=== PATIENT | male | born 1965 | race Caucasian/White ===

== ENCOUNTER → 2018-06-16 09:39 | Outpatient (CLI) | payer MEDICARE, SELFPAY ==
[2018-06-17 18:08] LABS: PSA, Screening 0.1 ng/ml (0-3.5)
== END ==
PROVIDERS: PCP Emergency Medicine; Visit Provider Emergency Medicine
DX: N40.0 Benign prostatic hyperplasia without lower urinary tract symptoms (principal)
CPT/HCPCS: 36415; 84153

== ENCOUNTER 2018-10-14 09:44 | Outpatient (CLI) | payer MEDICARE, SELFPAY ==
[2018-10-14 11:37] LABS: Hemoglobin A1C 8.6 % (4.5-6.2)
[2018-10-14 12:12] LABS: Anion Gap 7.9 mmol/L (3-11); BUN 30 mg/dL (7-18); CO2 28.1 mmol/L (21.0-32.0); CREATININE 1.65 mg/dL (0.70-1.30); Calcium 9.4 mg/dL (8.5-10.1); Chloride 99 mmol/L (98-107); Cholesterol 178 mg/dL (50-200); Estimated GFR 43.69 (mL/min/1.73m2); Glucose 226 mg/dL (70-100); HDL Cholesterol 31 mg/dL (40-60); LDL CHOLESTEROL 128 mg/dL (<100); Potassium 5.3 mmol/L (3.5-5.1); Sodium 135 mmol/L (136-145); Triglyceride 136 mg/dL (30-150)
== END 2018-10-14 10:04 ==
PROVIDERS: PCP Emergency Medicine; Visit Provider Emergency Medicine
DX: I10 Essential (primary) hypertension (principal); E11.9 Type 2 diabetes mellitus without complications; I25.10 Atherosclerotic heart disease of native coronary artery without angina pectoris
CPT/HCPCS: 36415; 80048; 80061; 83721; 83036

== ENCOUNTER 2018-12-16 10:19 | Outpatient (CLI) | payer MEDICARE, SELFPAY ==
[2018-12-16 13:21] LABS: Anion Gap 6.5 mmol/L (3-11); BUN 28 mg/dL (7-18); CO2 28.5 mmol/L (21.0-32.0); CREATININE 1.76 mg/dL (0.70-1.30); Calcium 9.9 mg/dL (8.5-10.1); Chloride 100 mmol/L (98-107); Cholesterol 151 mg/dL (50-200); Glucose 311 mg/dL (70-100); HDL Cholesterol 34 mg/dL (40-60); LDL CHOLESTEROL 99 mg/dL (<100); Sodium 135 mmol/L (136-145); Triglyceride 163 mg/dL (30-150)
[2018-12-16 13:23] LABS: Potassium 6.2 mmol/L (3.5-5.1)
[2018-12-16 13:43] LABS: Hemoglobin A1C 8.2 % (4.5-6.2)
== END 2018-12-16 10:39 ==
PROVIDERS: PCP Emergency Medicine; Visit Provider Emergency Medicine
DX: I10 Essential (primary) hypertension (principal); E11.49 Type 2 diabetes mellitus with other diabetic neurological complication
CPT/HCPCS: 36415; 80048; 80061; 83721; 83036

== ENCOUNTER 2018-12-18 01:06 | Outpatient (CLI) | payer MEDICARE, SELFPAY ==
[2018-12-18 09:47] LABS: Potassium 4.9 mmol/L (3.5-5.1)
== END 2018-12-18 01:26 ==
PROVIDERS: PCP Emergency Medicine; Visit Provider Emergency Medicine
DX: E11.9 Type 2 diabetes mellitus without complications (principal)
CPT/HCPCS: 36415; 84132

== ENCOUNTER 2019-04-20 08:46 | Outpatient (CLI) | payer MEDICARE, SELFPAY ==
[2019-04-20 11:17] LABS: Anion Gap 10.6 mmol/L (3-11); BUN 28 mg/dL (7-18); CO2 26.4 mmol/L (21.0-32.0); CREATININE 1.73 mg/dL (0.70-1.30); Calcium 9.4 mg/dL (8.5-10.1); Chloride 100 mmol/L (98-107); Estimated GFR 41.21 (mL/min/1.73m2); Glucose 226 mg/dL (70-100); Potassium 5.2 mmol/L (3.5-5.1); Sodium 137 mmol/L (136-145)
[2019-04-20 14:28] LABS: Calculated LDL 80; Cholesterol 142 mg/dL (50-200); HDL Cholesterol 30 mg/dL (40-60); Triglyceride 163 mg/dL (30-150)
== END 2019-04-20 09:06 ==
PROVIDERS: PCP Emergency Medicine; Visit Provider Emergency Medicine
DX: I10 Essential (primary) hypertension (principal); E11.9 Type 2 diabetes mellitus without complications
CPT/HCPCS: 36415; 80048; 80061; 83721; 83036

== ENCOUNTER 2019-10-19 09:12 | Outpatient (CLI) | payer MEDICARE, SELFPAY ==
[2019-10-19 13:05] LABS: HCT 49.6 % (40.0-50.0); HGB 16.1 g/dL (13.5-17.5); Mean Corp. HGB Concentration 32.5 g/dL (32.0-36.0); Mean Corpuscular Hemoglobin 27.2 pg (27.0-33.0); Mean Corpuscular Volume 83.8 fL (80-95); Mean Platelet Volume 10.8 fL (8.0-11.0); Platelet Count 250 x1000/uL (130-400); RBC 5.92 m/cumm (4.50-6.00); RBC Distribution Width 13.8 % (11.8-14.1)
[2019-10-19 13:09] LABS: Hemoglobin A1C 7.9 % (3.8-5.6)
[2019-10-19 13:11] LABS: ALT 29 U/L (16-63); AST 23 U/L (15-37); Albumin 3.9 g/dL (3.4-5.0); Alkaline Phosphatase 63 U/L (46-116); Anion Gap 7.6 mmol/L (3-11); BUN 27 mg/dL (7-18); Bilirubin, Direct 0.14 mg/dL (0.00-0.20); Bilirubin, Total 0.6 mg/dL (0.2-1.0); CO2 31.4 mmol/L (21.0-32.0); CREATININE 1.91 mg/dL (0.70-1.30); Calcium 9.5 mg/dL (8.5-10.1); Chloride 102 mmol/L (98-107); Estimated GFR 36.76 (mL/min/1.73m2); Glucose 206 mg/dL (74-106); Potassium 5.2 mmol/L (3.5-5.1); Sodium 141 mmol/L (136-145); Total Protein 7.5 g/dL (6.4-8.2)
[2019-10-19 13:35] LABS: COMMENT (LAB VIEW ONLY) 89.38 mg/dL; Microalb ug/mg Crea 26.7 ug/mg Cr
== END 2019-10-19 09:32 ==
PROVIDERS: PCP Emergency Medicine; Visit Provider Emergency Medicine
DX: E11.9 Type 2 diabetes mellitus without complications (principal); I10 Essential (primary) hypertension; R63.4 Abnormal weight loss
CPT/HCPCS: 36415; 80048; 80076; 85027; 82043; 82570; 83036

== ENCOUNTER 2019-12-28 23:00 | Inpatient (IN) | payer MEDICARE, MEDICAID, SELFPAY ==
[2019-12-28 23:10] VITALS: BP 146/95; PULSE 85; RESP 15; TEMP 36.4; O2SAT 100
--- NOTE | 2019-12-28 23:10 | W.ED.GENAD ---
Discharge Plan Disposition Patient Disposition: [facility] INPATIENT Condition: Poor Discharge Details Chief Complaint: Nausea/Vomit/Diar Clinical Impression: Abdominal pain, Nausea and vomiting, Abdominal mass, Abdominal lymphadenopathy Primary Care Provider: Travis Castro ED Provider: Bean Abernathy [place] Meds and New Rx's Prescriptions: No Action lisinopril 5 mg tablet 5 mg PO DAILY Qty: 90 RF: 4 ASPIRIN 81 MG tablet 1 tab PO DAILY RF: 0 (DME) blood-glucose meter [[employer] Autocode Meter] 1 EACH kit 1 ea Miscellaneous QID Qty: 1 RF: 0 (DME) BD Regular Bevel [place] 21 gauge x 1 1/2 needle 1 ea Miscellaneous DAILY Qty: 90 RF: 12 glipizide [Glucotrol] 10 mg tablet 10 mg PO BID Qty: 180 RF: 4 ezetimibe [Zetia] 10 mg tablet 10 mg PO DAILY Qty: 90 RF: 3 metoprolol tartrate 50 mg tablet 50 mg PO BID Qty: 180 RF: 3 Januvia 100 mg tablet 100 mg PO DAILY Qty: 90 RF: 3 omeprazole 20 mg capsule,delayed release(DR/EC) 20 mg PO DAILY Qty: 60 RF: 6 (DME) Blood Glucose Test Strip 1 ea Miscellaneous QID Qty: 360 RF: 3 (DME) lancets [[employer] Lancets] 28 gauge misc 1 ea Miscellaneous QID Qty: 360 RF: 4 Basaglar KwikPen U-100 Insulin 100 unit/mL (3 mL) insulin pen 80 unit subcut DAILY Qty: 12 RF: 12 Medical Decision Making Patient presenting with acute onset of abdominal pain and vomiting. History of diabetes, triple bypass, GERD. He is not endorsing chest pain or shortness of breath. Does have some tenderness in the epigastric region. EKG with nonspecific ST changes. IV established and laboratory studies obtained. Zofran and morphine ordered in addition to fluids. CT scan ordered. Patient continues to have some dry heaves. He is ordered for Reglan and Protonix IV. Laboratory studies show a normal white count. Hemoglobin is normal. Renal function a little bit worse than baseline with a BUN of 40 and a creatinine of 2.1 tonight. Glucose also high at 319. Electrolytes are okay. Liver function is normal. Lipase is normal. Troponin is negative. CT scan is changed to a noncontrast CT given his renal function. 01:00 - Patient continues to have pain and nausea/dry heaves despite morphine, Zofran, Reglan, Protonix. Continuing on IV fluids. CT scan is being read by radiology as masses and enlarged lymph nodes in the patricia hepatis and retroperitoneal region. No evidence of mass-effect causing gastric outlet obstruction. Some encroachment on the IVC and left renal vein but no evidence of occlusion of these. We will plan on admission overnight for IV fluids, antiemetics, pain control. Radiology recommends CT scan with IV contrast or MRI tomorrow. I have discussed findings with the patient and family. Discussed with hospitalist for admission. Medical Records Medical records reviewed: Yes I reviewed the patient's medical records. Imaging Data Radiologic Study: Imaging: CT Scan Radiologist's impression: Imaging protocol: Computed tomography of the abdomen and pelvis without contrast. Radiation optimization: All CT scans at this facility use at least one of these dose optimization techniques: automated exposure control; mA and/or kV adjustment per patient size (includes targeted exams where dose is matched to clinical indication); or iterative reconstruction. COMPARISON: No relevant prior studies available. FINDINGS: Lungs: Visualized lung bases are unremarkable. Liver: The liver is normal. Gallbladder and bile ducts: The gallbladder is normal. Pancreas: The pancreas is normal. Spleen: The spleen is normal. Splenule. Adrenals: 1.5 cm indeterminate density left adrenal nodule. Normal right adrenal gland. Kidneys and ureters: The kidneys are normal. Stomach and bowel: Unremarkable. No obstruction. No mucosal thickening. Appendix: A normal appendix is identified. Intraperitoneal space: A 2.7 cm patricia hepatis nodule appears inseparable from the proximal duodenum (series 2 image 31 through 23 and coronal series 4 image 43 through 48). Vasculature: Coronary artery calcification. The aorta is normal. NIKIA SOTO Preliminary Radiology Report SUPERVISOR ESTIMATOR AND DRAFTER (QA) DISCREPANCY? If there is a discrepancy between the preliminary and final interpretation, please notify [facility] via [email or web address]. If you do not have access to our QA portal, call our QA team at [phone] CONFIDENTIALITY STATEMENT This report is intended only for the use of the referring physician, and only in accordance with law, If you received this in error, call [phone] Page 2 of 2 Lymph nodes: Numerous enlarged patricia hepatis lymph nodes/masses measuring up to 7.6 x 4.2 cm with associated mass effect and narrowing of the IVC and inferior displacement of the proximal duodenum. Several additional enlarged retroperitoneal lymph nodes coursing along the posterior margin the inferior vena cava Bladder: The bladder is normal. Reproductive: Unremarkable as visualized. Bones/joints: Unremarkable. No acute fracture. Soft tissues: Unremarkable. IMPRESSION: 1. Numerous enlarged patricia hepatis and retroperitoneal lymph nodes/masses with largest patricia hepatis mass measuring up to 7.6 x 4.2 cm. The lesions are nonspecific but concerning for malignancy of unclear etiology. A single patricia hepatis nodule appears inseparable from the proximal duodenum as a potential source of malignancy. Recommend further evaluation with contrastenhanced CT or MRI. 2. There is resultant mass effect and prominent narrowing the inferior vena cava and left renal vein and inferior displacement the proximal duodenum without upstream obstruction. Further characterization of local mass effect would be better characterized by contrast enhanced CT or MRI. 3. 1.5 cm indeterminate density left adrenal nodule. Findings discussed with BEAN ABERNATHY MD. by Allan Pleitez MD. of radiology at 12/29/2019 1:02 AM EST Lab Data Lab results reviewed: Yes I reviewed the patient's lab results. ECG Data Attestation: I personally reviewed and interpreted this ECG (s) as follows: Prior ECG tracings: not available for review Interpretation: Normal sinus rhythm at 89. Normal axis and intervals. Nonspecific ST changes. Nondiagnostic. HPI General Mode of arrival: ambulatory. Date/Time Provider Initiated Documentation: 12/28/19 23:10. Limitations to Documentation: no limitations. Information obtained by: patient, family and RN notes reviewed. HPI Narrative: Patient presents to ED with onset of abdominal pain and vomiting about 8:30 - 9:00 this evening. He had been fine all day. He had chicken for dinner. Does not know whether that is the cause or not. He has had some diarrhea during the week but none tonight. He denies fever. He has no chest pain or shortness of breath. Pain radiates into the back from the abdomen. He has had issues with reflux with pain and vomiting in the past but not like this. Currently on omeprazole. He is also diabetic but does not carry a diagnosis of gastric emptying problems. There is been no previous surgery on his abdomen. Related Data Home Medications Medication Instructions Recorded Confirmed Aspirin 1 tab PO DAILY tab-cap 02/01/13 12/28/19 blood-glucose meter [Prodigy] #1 kit 11/28/17 10/19/19 lisinopril 5 mg tablet 5 mg PO DAILY #90 tab 12/16/18 12/28/19 needle (disp) 21 G 21 gauge x 1 #90 ndl 01/26/19 10/19/19 1/2 glipizide 10 mg tablet 10 mg PO BID #180 tab 06/09/19 12/28/19 ezetimibe 10 mg tablet 10 mg PO DAILY #90 tab 09/28/19 12/28/19 metoprolol tartrate 50 mg tablet 50 mg PO BID #180 tab-cap 09/28/19 12/28/19 sitagliptin 100 mg tablet 100 mg PO DAILY #90 tab 09/28/19 12/28/19 omeprazole 20 mg capsule,delayed 20 mg PO DAILY #60 cap 11/16/19 12/28/19 release blood sugar diagnostic #360 strip 11/29/19 lancets 28 gauge #360 ea 11/29/19 insulin glargine 100 unit/mL (3 80 unit SUBCUT DAILY #12 pen 12/23/19 12/28/19 mL) subcutaneous pen Previous Rx's Medication Instructions Recorded blood-glucose meter [Prodigy] #1 kit 11/28/17 lisinopril 5 mg tablet 5 mg PO DAILY #90 tab 12/16/18 needle (disp) 21 G 21 gauge x 1 #90 ndl 01/26/19 1/2 glipizide 10 mg tablet 10 mg PO BID #180 tab 06/09/19 ezetimibe 10 mg tablet 10 mg PO DAILY #90 tab 09/28/19 metoprolol tartrate 50 mg tablet 50 mg PO BID #180 tab-cap 09/28/19 sitagliptin 100 mg tablet 100 mg PO DAILY #90 tab 09/28/19 omeprazole 20 mg capsule,delayed 20 mg PO DAILY #60 cap 11/16/19 release blood sugar diagnostic #360 strip 11/29/19 lancets 28 gauge #360 ea 11/29/19 insulin glargine 100 unit/mL (3 80 unit SUBCUT DAILY #12 pen 02/27/20 mL) subcutaneous pen Allergies Allergy/AdvReac Type Severity Reaction Status Date / Time famotidine Allergy Severe diarrhea Verified 12/28/19 23:19 metformin AdvReac Severe VOMITING/DI Verified 12/28/19 23:19 ZZINESS atorvastatin AdvReac Intermediate Verified 12/28/19 23:19 pravastatin AdvReac Intermediate myalgias Verified 12/28/19 23:19 simvastatin AdvReac Intermediate JOINT PAIN Verified 12/28/19 23:19 Review of Systems Narrative: 08/09 Review of Systems completed and is negative except as stated above in HPI (Systems reviewed: Const, Eyes, ENT, Resp, CV, GI, , MSK, Skin, Neuro) PFSH Medical History BPH associated with nocturia (Chronic 06/16/18) CKD (chronic kidney disease) (Chronic) COPD (chronic obstructive pulmonary disease) (Chronic) Diabetic retinopathy (Chronic) severe; laser RX--blind OD Essential hypertension (Chronic 08/05/13) Hypercholesterolemia (Chronic) Obesity (Chronic) 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 Maternal Uncle Cancer Social History Smoking/Tobacco Use Status: Former Tobacco Use Quit Date: 10/27/11 Second Hand Exposure: No Alcohol Intake: former Drug use: Never Substance use type: does not use Caregiver/Support person: No Household members: significant other Housing: house Communication Needs: None Do you need help understanding health information?: Never Pets and animals: Yes Pets and animals: cat(s) Sexually active: Yes Do you think of yourself as: straight/heterosexual Current gender identity: male What is your relationship status?: living with partner How often do you talk on the phone with friends or family?: three or more times per week How often do you get together with friends or relatives?: twice per week How often do you attend buddhism or oriental orthodox services?: decline to answer Do you belong to any clubs or organized social groups?: no Panel score (0-1 are the most socially isolated patients): 2 What type of physical activity do you participate in: walking Duration: < 15 minutes/day Frequency: daily Antonia/Mormonism: None Special antonia needs: No Seatbelt use: always Helmet use: No Drive intox or ride w/intox courtesy van driver: No Do you feel safe at home: Yes Do you feel safe in your relationship?: Yes Exam Narrative Exam Narrative: Vitals: Afebrile. Elevated blood pressure but otherwise normal vitals and normal room air pulse ox. Const: Obese male appears uncomfortable. HEENT: NC/AT. Normal facial exam. Eyes: Normal conjunctiva and sclera. Neck: Supple. Trachea midline. Lungs: Normal respiratory effort. Lungs are clear. Cor: RRR without murmur/gallop. Good radial pulses. GI: Soft and nondistended. Mild tenderness in the epigastric area. No right upper quadrant tenderness. No guarding or rebound. Neuro: A+O x 3. Normal speech, mentation, gait. Cranial nerves II - XII grossly intact. No gross motor or sensory deficit. Ext: No C/C/E. Skin: Warm and slightly diaphoretic.
[2019-12-28 23:22] VITALS: BP 131/87; PULSE 76; PULSE 77; RESP 28; O2SAT 100
[2019-12-28 23:40] VITALS: BP 151/133; PULSE 68; PULSE 72; RESP 19; O2SAT 100
[2019-12-28] MEDS: Ondansetron 4 MG/2 ML VIAL IVP (23:40)
[2019-12-28] MEDS: Lactated Ringers 1,000 ML 1000 ML IV (23:41)
[2019-12-28 23:43] LABS: Abs Immature Grans 0.08 k/cumm (0.0-0.09); Absolute Basophil Count 0.07 k/cumm (0.0-0.2); Absolute Lymphocyte Count 2.25 k/cumm (1.2-3.4); Absolute Monocyte Count 1.17 k/cumm (0.11-0.7); Absolute Neutrophil Count 6.36 k/cumm (1.2-6.7); Basophils % 0.7; Eosinophils % 4.8; HCT 47.2 % (40.0-50.0); HGB 16.2 g/dL (13.5-17.5); Immature Grans % 0.8 %; Lymphocytes % 21.6; Mean Corp. HGB Concentration 34.3 g/dL (32.0-36.0); Mean Corpuscular Hemoglobin 27.5 pg (27.0-33.0); Mean Corpuscular Volume 80.1 fL (80-95); Mean Platelet Volume 10.5 fL (8.0-11.0); Monocytes % 11.2; Neutrophils % 60.9; Platelet Count 306 x1000/uL (130-400); RBC 5.89 m/cumm (4.50-6.00); RBC Distribution Width 13.7 % (11.8-14.1); White Blood Cell Count 10.43 k/cumm (4.4-10.8)
[2019-12-28 23:46] VITALS: BP 146/91; PULSE 90; PULSE 92; RESP 31; O2SAT 100
[2019-12-29] VITALS (14 sets, daily range): BP systolic 127–178; BP diastolic 75–97; PULSE 65–105; RESP 16–23; TEMP 36.3–37.1; O2SAT 95–99
[2019-12-29] LABS: ALT 28 U/L (16-63); AST 16 U/L (15-37); Albumin 3.9 g/dL (3.4-5.0); Alkaline Phosphatase 92 U/L (46-116); Anion Gap 12.3 mmol/L (3-11); BUN 40 mg/dL (7-18); Bilirubin, Total 0.2 mg/dL (0.2-1.0); CO2 21.7 mmol/L (21.0-32.0); Chloride 100 mmol/L (98-107); Estimated GFR 32.83 (mL/min/1.73m2); Glucose 319 mg/dL (74-106); Lipase 173 U/L (73-393); Magnesium 1.6 mg/dL (1.8-2.4); Sodium 134 mmol/L (136-145); Total Protein 7.7 g/dL (6.4-8.2)
[2019-12-29 00:01] LABS: Troponin I < 0.05 ng/Ml (<0.06)
--- NOTE | 2019-12-29 00:20 | DI.CT_ITS ---
EXAM: CT ABDOMEN AND PELVIS WO CLINICAL HISTORY: ACUTE ONSET ABD PAIN/VOMITING. TECHNIQUE: Imaging Protocol: Axial computed tomography images with coronal and sagittal reformatted images were created and reviewed. COMPARISON: No exams were available for comparison FINDINGS: ABDOMEN: Lung Bases: Normal where visualized. Liver: Normal density. No measurable mass. Gallbladder and biliary tract: No radiodense calculus or dilation. Pancreas: Normal density, no abnormal calcifications or inflammatory process. Spleen: Normal. Kidneys: Normal size, contour and axis. No radiodense stones or obstructive uropathy. No masses seen. Note is made of a retroaortic left renal vein. Adrenal glands: There is a 1.5 cm hypodense left adrenal mass. The right adrenal gland is unremarkab le. Lymph nodes: There are enlarged masses seen in the upper abdomen. There are masses seen in the kelly on of the patricia hepatis measuring 5.8 x 3.0 cm in aggregate. There is a 7.9 x 4.4 cm mass posterior to the pancreatic head, anterior to the inferior vena cava and superior to the duodenum. There are e nlarged lymph nodes posterior to the inferior vena cava in the retroperitoneum. Abdominal Aorta: Abdominal portion non-dilated. PELVIS: Bladder: Symmetric distention, no gross wall thickening. Bowel: No obstruction or bowel wall thickening. The appendix is normal in size without evidence of ad jacent mesenteric fat stranding or adjacent fluid collection. Peritoneal cavity: No ascites, collection or mesenteric inflammatory response. Reproductive organs: Within normal limits. Bones: Multilevel degenerative changes are present. If symptomatic further imaging may be performed. IMPRESSION: 1. Multiple masses in the upper abdomen concerning for malignancy. The largest mass measures 7.9 x 4 .4 cm. A contrast enhanced CT scan or MRI should be considered for further evaluation. 2. 1.5 cm indeterminate left adrenal nodule. CT scan or MRI using the adrenal protocol should be con sidered for further evaluation. DATA REPOSITORY: All CT scans at this facility are submitted to the National Radiology Data Registry (NRDR) Dose Index Registry (DIR) with the [employer] (ACR). RADIATION OPTIMIZATION: All CT scans at this facility use at least one of these dose optimization te chniques: automated exposure control; mA and/or kV adjustment per patient size (includes targeted exa ms where dose is matched to clinical indication); or iterative reconstruction.
[2019-12-29] MEDS: Pantoprazole 40 MG VIAL IVP ×2 (00:32→09:13)
[2019-12-29] MEDS: Metoclopramide 10 MG/2 ML VIAL IVP (00:32)
--- NOTE | 2019-12-29 01:03 | DI.VRAD_ITS ---
PROCEDURE INFORMATION: Exam: CT Abdomen And Pelvis Without Contrast Exam date and time: 12/29/2019 12:18 AM Age: 54 years old Clinical indication: Generalized; Prior surgery; Surgery date: 6+ months; Surgery type: Coronary artery bypass; Patient HX: Acute onset of abdominal pain and vomiting; Additional info: HX of diabetes and chronic kidney disease TECHNIQUE: Imaging protocol: Computed tomography of the abdomen and pelvis without contrast. Radiation optimization: All CT scans at this facility use at least one of these dose optimization techniques: automated exposure control; mA and/or kV adjustment per patient size (includes targeted exams where dose is matched to clinical indication); or iterative reconstruction. COMPARISON: No relevant prior studies available. FINDINGS: Lungs: Visualized lung bases are unremarkable. Liver: The liver is normal. Gallbladder and bile ducts: The gallbladder is normal. Pancreas: The pancreas is normal. Spleen: The spleen is normal. Splenule. Adrenals: 1.5 cm indeterminate density left adrenal nodule. Normal right adrenal gland. Kidneys and ureters: The kidneys are normal. Stomach and bowel: Unremarkable. No obstruction. No mucosal thickening. Appendix: A normal appendix is identified. Intraperitoneal space: A 2.7 cm patricia hepatis nodule appears inseparable from the proximal duodenum (series 2 image 31 through 23 and coronal series 4 image 43 through 48). Vasculature: Coronary artery calcification. The aorta is normal. Lymph nodes: Numerous enlarged patricia hepatis lymph nodes/masses measuring up to 7.6 x 4.2 cm with associated mass effect and narrowing of the IVC and inferior displacement of the proximal duodenum. Several additional enlarged retroperitoneal lymph nodes coursing along the posterior margin the inferior vena cava Bladder: The bladder is normal. Reproductive: Unremarkable as visualized. Bones/joints: Unremarkable. No acute fracture. Soft tissues: Unremarkable. IMPRESSION: 1. Numerous enlarged patricia hepatis and retroperitoneal lymph nodes/masses with largest patricia hepatis mass measuring up to 7.6 x 4.2 cm. The lesions are nonspecific but concerning for malignancy of unclear etiology. A single patricia hepatis nodule appears inseparable from the proximal duodenum as a potential source of malignancy. Recommend further evaluation with contrast-enhanced CT or MRI. 2. There is resultant mass effect and prominent narrowing the inferior vena cava and left renal vein and inferior displacement the proximal duodenum without upstream obstruction. Further characterization of local mass effect would be better characterized by contrast enhanced CT or MRI. 3. 1.5 cm indeterminate density left adrenal nodule. Findings discussed with BEAN ABERNATHY MD. by Allan Pleitez MD. of radiology at 12/29/2019 1:02 AM EST Dictated and Authenticated by: Allan Pleitez MD. Ordering:MICHELLE Reyes MD
[2019-12-29] MEDS: HYDROmorphone 2 MG/ML VIAL 1 MG IVP ×4 (01:20→20:05)
--- NOTE | 2019-12-29 02:07 | NUR.NOTE ---
Nursing Note: after Dilaudid pt is resting comfortably on stretcher. Admission pending.
[2019-12-29 02:27] LABS: Troponin I < 0.05 ng/Ml (<0.06)
--- NOTE | 2019-12-29 02:58 | W.PM.HP.N ---
Date of service: 12/29/19 Time of Service: 02:58 Assessment and Plan Assessment and plan (1) Abdominal pain: Start date: 12/29/19 Status: Acute Assessment and plan: This is a 54-year-old gentleman who had acute onset of colicky type left abdominal pain mostly in the upper quadrant. CT scan did show lymphadenopathy and masses in the patricia hepatis which need further investigation with either a with CT scan of the abdomen and pelvis with contrast or with MRI. Patient does have CKD which was slightly exacerbated with his acute process at this needs to be corrected with IV hydration prior to contrast dye being used. By history this is been a slow process over the last several months and is acute distress is from his pain and nausea. 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 Surgical consultation may be entertained though this may need more than outpatient evaluation work-up versus transfer for inpatient tertiary care evaluation. His acute admission is for symptom control and further investigations. His cardiovascular disease appears stable with negative troponins. We will monitor with telemetry. He is a full code. Qualifiers: Abdominal location: upper abdomen, unspecified Qualified Code(s): R10.10 - Upper abdominal pain, unspecified (2) Abdominal mass: Start date: 12/29/19 Status: Acute Assessment and plan: Patient will have further studies as his renal functions tolerate. Surgical consultation if appropriate. Qualifiers: Abdominal location: other location Qualified Code(s): R19.09 - Other intra-abdominal and pelvic swelling, mass and lump (3) Abdominal lymphadenopathy: Start date: 12/29/19 Status: Acute Assessment and plan: Eventually patient will need tissue diagnoses of the abdominal masses in the patricia hepatis and the lymphadenopathy. He has no elevated white blood cell count though he does have some abnormal monocytes and lymphoma needs to be entertained. (4) Nausea and vomiting: Start date: 12/29/19 Status: Acute Assessment and plan: Symptomatic care with Zofran. Qualifiers: Vomiting Intractability: intractable Vomiting type: unspecified Qualified Code(s): R11.2 - Nausea with vomiting, unspecified (5) CKD (chronic kidney disease): Status: Chronic Assessment and plan: Monitor as patient receives IV hydration. 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 Patient is n.p.o. History of Present Illness History of Present Illness Chief Complaint: Acute severe acute left upper quadrant abdominal pain with emesis Narrative: This is a 54-year-old gentleman who is a severe diabetic with sequelae including retinopathy and foot ulcers in the past as well as heart disease status post CABG without recent cardiovascular symptoms. He had an acute onset of colicky left upper quadrant to mid abdomen abdominal pain after eating chicken with rice the night of presentation. He has had no fever. He did feel his mouth filled with saliva and had nausea with emesis upon presentation to the ED. He did slowly gain pain control and stopped vomiting with antiemetics and bowel rest along with IV hydration. CT scan without contrast because of his elevated creatinine did reveal numerous enlarged patricia hepatis and retroperitoneal lymph nodes and masses with the largest hepatic mass about 8 x 4 cm in the patricia hepatis. There was a mass-effect on the proximal duodenum as well as some of the venous structures in the patient had been having bloating without emesis or pain for about a month prior to this presentation. This pain was colicky and slow to resolve. It also radiated straight into the back. His lipase was normal. There is no evidence of obstruction of the biliary tree. The pancreas appeared normal. The patient had no evidence of bleeding and had no hematemesis. He has never had an EGD or colonoscopy though he is over the age of 48. He has had no weight loss. His urinary habits have been normal. Review of Systems Narrative: 13 point review of systems otherwise unrevealing or stable. [facility] Medical History BPH associated with nocturia (Chronic 06/16/18) CKD (chronic kidney disease) (Chronic) COPD (chronic obstructive pulmonary disease) (Chronic) Diabetic retinopathy (Chronic) severe; laser RX--blind OD Essential hypertension (Chronic 08/05/13) Hypercholesterolemia (Chronic) Obesity (Chronic) 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) Surgical History History of cataract removal with insertion of prosthetic lens (Chronic) History of coronary artery bypass surgery (Chronic) Social History Smoking/Tobacco Use Status: Former Tobacco Use Quit Date: 10/27/11 Second Hand Exposure: No Alcohol Intake: former Drug use: Never Substance use type: does not use Caregiver/Support person: No Household members: significant other Housing: house Communication Needs: None Do you need help understanding health information?: Never Pets and animals: Yes Pets and animals: cat(s) Sexually active: Yes Do you think of yourself as: straight/heterosexual Current gender identity: male What is your relationship status?: living with partner How often do you talk on the phone with friends or family?: three or more times per week How often do you get together with friends or relatives?: twice per week How often do you attend anabaptist or yazidism services?: decline to answer Do you belong to any clubs or organized social groups?: no Panel score (0-1 are the most socially isolated patients): 2 What type of physical activity do you participate in: walking Duration: < 15 minutes/day Frequency: daily Antonia/Lutheran: None Special antonia needs: No Seatbelt use: always Helmet use: No Drive 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 Do you feel safe at home: Yes Do you feel safe in your relationship?: Yes Meds Home Medications and Allergies Home Medications Medication Instructions Recorded Confirmed Type Aspirin 1 tab PO DAILY tab-cap 02/01/13 12/28/19 History blood-glucose meter [Prodigy] #1 kit 11/28/17 10/19/19 Rx lisinopril 5 mg tablet 5 mg PO DAILY #90 tab 12/16/18 12/28/19 Rx needle (disp) 21 G 21 gauge x 1 #90 ndl 01/26/19 10/19/19 Rx 1/2 glipizide 10 mg tablet 10 mg PO BID #180 tab 06/09/19 12/28/19 Rx ezetimibe 10 mg tablet 10 mg PO DAILY #90 tab 09/28/19 12/28/19 Rx metoprolol tartrate 50 mg tablet 50 mg PO BID #180 tab-cap 09/28/19 12/28/19 Rx sitagliptin 100 mg tablet 100 mg PO DAILY #90 tab 09/28/19 12/28/19 Rx omeprazole 20 mg capsule,delayed 20 mg PO DAILY #60 cap 11/16/19 12/28/19 Rx release blood sugar diagnostic #360 strip 11/29/19 Rx lancets 28 gauge #360 ea 11/29/19 Rx insulin glargine 100 unit/mL (3 80 unit SUBCUT DAILY #12 pen 12/23/19 12/28/19 Rx mL) subcutaneous pen Allergies Allergy/AdvReac Type Severity Reaction Status Date / Time famotidine Allergy Severe diarrhea Verified 12/28/19 23:19 metformin AdvReac Severe VOMITING/DI Verified 12/28/19 23:19 ZZINESS atorvastatin AdvReac Intermediate Verified 12/28/19 23:19 pravastatin AdvReac Intermediate myalgias Verified 12/28/19 23:19 simvastatin AdvReac Intermediate JOINT PAIN Verified 12/28/19 23:19 Exam Narrative Exam Narrative: General: Patient is moderately obese, appears appropriate for age and in no acute distress at the time of my exam. He had adequate pain control with IV Dilaudid and 1 dose of IV fentanyl. He was not having persistent nausea or vomiting. His pain was positional and he was comfortable with his head slightly elevated lying flat on his back. He is alert and oriented x3. HEENT: Normocephalic, eyes with pupils equal and react light symmetrically and extraocular movement intact with sclera anicteric. Oropharynx with moist mucosa and fair dentition. External ears normal. Neck: Supple without JVD. Lungs: Clear to auscultation percussion without localizing findings. Good aeration. Back: Stooped posture without CVA tenderness. Heart: Regular rate and rhythm with no murmurs gallops appreciated. Chest: Well-healed midsternal scar. Abdomen: Slightly protuberant and obese contour, soft to palpation diffusely with no palpable masses or hepatosplenomegaly. Patient was slightly uncomfortable with deep palpation over the left upper quadrant. Bowel sounds are positive in all quadrants. No tympany to percussion. Genitalia/rectal: Exam deferred. Extremities: No pitting edema, cyanosis or clubbing. Skin: Pale, warm and dry. Neuro: Cranial nerves II through XII grossly intact except for decreased visual acuity, no focalizing motor deficits. Decreased sensation lower extremities. Psych: Normal affect and mood with normal thought processes, remote and recent memory intact. Results Imaging Imaging Studies: Exam: CT Abdomen And Pelvis Without Contrast Exam date and time: 12/29/2019 12:18 AM Age: 54 years old Clinical indication: Generalized; Prior surgery; Surgery date: 6+ months; Surgery type: Coronary artery bypass; Patient HX: Acute onset of abdominal pain and vomiting; Additional info: HX of diabetes and chronic kidney disease TECHNIQUE: Imaging protocol: Computed tomography of the abdomen and pelvis without contrast. Radiation optimization: All CT scans at this facility use at least one of these dose optimization techniques: automated exposure control; mA and/or kV adjustment per patient size (includes targeted exams where dose is matched to clinical indication); or iterative reconstruction. COMPARISON: No relevant prior studies available. FINDINGS: Lungs: Visualized lung bases are unremarkable. Liver: The liver is normal. Gallbladder and bile ducts: The gallbladder is normal. Pancreas: The pancreas is normal. Spleen: The spleen is normal. Splenule. Adrenals: 1.5 cm indeterminate density left adrenal nodule. Normal right adrenal gland. Kidneys and ureters: The kidneys are normal. Stomach and bowel: Unremarkable. No obstruction. No mucosal thickening. Appendix: A normal appendix is identified. Intraperitoneal space: A 2.7 cm patriica hepatis nodule appears inseparable from the proximal duodenum (series 2 image 31 through 23 and coronal series 4 image 43 through 48). Vasculature: Coronary artery calcification. The aorta is normal. Lymph nodes: Numerous enlarged patricia hepatis lymph nodes/masses measuring up to 7.6 x 4.2 cm with associated mass effect and narrowing of the IVC and inferior displacement of the proximal duodenum. Several additional enlarged retroperitoneal lymph nodes coursing along the posterior margin the inferior vena cava Bladder: The bladder is normal. Reproductive: Unremarkable as visualized. Bones/joints: Unremarkable. No acute fracture. Soft tissues: Unremarkable. IMPRESSION: 1. Numerous enlarged patricia hepatis and retroperitoneal lymph nodes/masses with largest patricia hepatis mass measuring up to 7.6 x 4.2 cm. The lesions are nonspecific but concerning for malignancy of unclear etiology. A single patricia hepatis nodule appears inseparable from the proximal duodenum as a potential source of malignancy. Recommend further evaluation with contrast-enhanced CT or MRI. 2. There is resultant mass effect and prominent narrowing the inferior vena cava and left renal vein and inferior displacement the proximal duodenum without upstream obstruction. Further characterization of local mass effect would be better characterized by contrast enhanced CT or MRI. 3. 1.5 cm indeterminate density left adrenal nodule. Findings discussed with BEAN REYNOLDS MD. by Allan Pleitez MD. of radiology at 12/29/2019 1:02 AM EST Dictated and Authenticated by: Allan Pleitez MD. Labs Result diagrams: 12/28/19 23:20 12/28/19 23:20 Labs: Laboratory Results - last 24 hr 12/28/19 12/28/19 12/29/19 23:20 23:20 02:02 WBC 10.43 RBC 5.89 Hgb 16.2 Hct 47.2 MCV 80.1 MCH 27.5 MCHC 34.3 RDW 13.7 Plt Count 306 MPV 10.5 Immature Gran % 0.8 Neutrophils % 60.9 Lymphocytes % 21.6 Monocytes % 11.2 Eosinophils % 4.8 Basophils % 0.7 Absolute Neutrophils 6.36 Absolute Lymphocytes 2.25 Absolute Monocytes 1.17 H Absolute Eosinophils 0.50 Absolute Basophils 0.07 Sodium 134 L Potassium 4.0 Chloride 100 Carbon Dioxide 21.7 Anion Gap 12.3 H BUN 40 H Creatinine 2.10 H Estimated GFR/1.73 m2 32.83 Glucose 319 H Calcium 9.0 Magnesium 1.6 L Total Bilirubin 0.2 AST 16 ALT 28 Alkaline Phosphatase 92 Troponin I < 0.05 < 0.05 Total Protein 7.7 Albumin 3.9 Lipase 173 Last Vital Signs Temp 36.4 C L 12/28/19 23:10 Pulse 83 12/29/19 02:01 Resp 16 12/29/19 02:01 BP 155/88 H 12/29/19 02:01 Pulse Ox 98 12/29/19 02:01
--- NOTE | 2019-12-29 03:12 | NUR.NOTE ---
Nursing Note:Report given to Maude. pt transported to [place] in w/ tele.
[2019-12-29] MEDS: fentaNYL 100 MCG/2 ML VIAL 50 MCG IVP (05:26)
[2019-12-29] MEDS: Heparin 5,000 UNITS/ML VIAL 5000 UNITS SC ×3 (06:45→21:40)
[2019-12-29] MEDS: Lactated Ringers 1,000 ML 150 ML IV ×2 (06:46→15:00)
[2019-12-29 08:37] LABS: Abs Immature Grans 0.03 k/cumm (0.0-0.09); Absolute Basophil Count 0.03 k/cumm (0.0-0.2); Absolute Eosinophil Count 0.01 k/cumm (0.0-0.7); Absolute Lymphocyte Count 0.87 k/cumm (1.2-3.4); Absolute Monocyte Count 0.47 k/cumm (0.11-0.7); Basophils % 0.2; Eosinophils % 0.1; HCT 45.4 % (40.0-50.0); HGB 15.4 g/dL (13.5-17.5); Immature Grans % 0.2 %; Lymphocytes % 6.9; Mean Corp. HGB Concentration 33.9 g/dL (32.0-36.0); Mean Corpuscular Hemoglobin 27.5 pg (27.0-33.0); Mean Corpuscular Volume 81.1 fL (80-95); Mean Platelet Volume 10.8 fL (8.0-11.0); Monocytes % 3.7; Neutrophils % 88.9; Platelet Count 269 x1000/uL (130-400); RBC Distribution Width 13.7 % (11.8-14.1); White Blood Cell Count 12.57 k/cumm (4.4-10.8)
[2019-12-29 08:40] LABS: Absolute Neutrophil Count 11.17 k/cumm (1.2-6.7)
[2019-12-29 08:48] LABS: ALT 30 U/L (16-63); AST 18 U/L (15-37); Alkaline Phosphatase 94 U/L (46-116); Anion Gap 17.5 mmol/L (3-11); BUN 40 mg/dL (7-18); Bilirubin, Direct 0.06 mg/dL (0.00-0.20); Bilirubin, Total 0.2 mg/dL (0.2-1.0); CO2 17.5 mmol/L (21.0-32.0); CREATININE 1.99 mg/dL (0.70-1.30); Calcium 8.6 mg/dL (8.5-10.1); Chloride 99 mmol/L (98-107); Estimated GFR 34.94 (mL/min/1.73m2); Glucose 306 mg/dL (74-106); Magnesium 1.6 mg/dL (1.8-2.4); Potassium 4.2 mmol/L (3.5-5.1); Sodium 134 mmol/L (136-145); Total Protein 7.4 g/dL (6.4-8.2)
--- NOTE | 2019-12-29 08:56 | W.SURGCON ---
Date of service: 12/29/19 Time of Service: 08:56 [facility] Medical History BPH associated with nocturia (Chronic 06/16/18) CKD (chronic kidney disease) (Chronic) COPD (chronic obstructive pulmonary disease) (Chronic) Diabetic retinopathy (Chronic) severe; laser RX--blind OD Essential hypertension (Chronic 08/05/13) Hypercholesterolemia (Chronic) Obesity (Chronic) 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) Surgical History History of cataract removal with insertion of prosthetic lens (Chronic) History of coronary artery bypass surgery (Chronic) Social History Smoking/Tobacco Use Status: Former Tobacco Use Quit Date: 10/27/11 Second Hand Exposure: No Alcohol Intake: former Drug use: Never Substance use type: does not use Caregiver/Support person: No Household members: significant other Housing: house Communication Needs: None Do you need help understanding health information?: Never Pets and animals: Yes Pets and animals: cat(s) Sexually active: Yes Do you think of yourself as: straight/heterosexual Current gender identity: male What is your relationship status?: living with partner How often do you talk on the phone with friends or family?: three or more times per week How often do you get together with friends or relatives?: twice per week How often do you attend mu-ism or yarsani services?: decline to answer Do you belong to any clubs or organized social groups?: no Panel score (0-1 are the most socially isolated patients): 2 What type of physical activity do you participate in: walking Duration: < 15 minutes/day Frequency: daily Antonia/Nondenominational: None Special antonia needs: No Seatbelt use: always Helmet use: No Drive 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 Do you feel safe at home: Yes Do you feel safe in your relationship?: Yes Results Last Vital Signs Temp 36.8 C 12/29/19 07:34 Pulse 105 H 12/29/19 07:34 Resp 18 12/29/19 07:34 BP 127/80 12/29/19 07:34 Pulse Ox 96 12/29/19 07:34 Labs Result diagrams: 12/29/19 07:12 12/29/19 07:12 Labs: Laboratory Results - last 24 hr 12/28/19 12/28/19 12/29/19 23:20 23:20 02:02 WBC 10.43 RBC 5.89 Hgb 16.2 Hct 47.2 MCV 80.1 MCH 27.5 MCHC 34.3 RDW 13.7 Plt Count 306 MPV 10.5 Immature Gran % 0.8 Neutrophils % 60.9 Lymphocytes % 21.6 Monocytes % 11.2 Eosinophils % 4.8 Basophils % 0.7 Absolute Neutrophils 6.36 Absolute Lymphocytes 2.25 Absolute Monocytes 1.17 H Absolute Eosinophils 0.50 Absolute Basophils 0.07 Sodium 134 L Potassium 4.0 Chloride 100 Carbon Dioxide 21.7 Anion Gap 12.3 H BUN 40 H Creatinine 2.10 H Estimated GFR/1.73 m2 32.83 Glucose 319 H Calcium 9.0 Magnesium 1.6 L Total Bilirubin 0.2 Conjugated Bilirubin AST 16 ALT 28 Alkaline Phosphatase 92 Troponin I < 0.05 < 0.05 Total Protein 7.7 Albumin 3.9 Lipase 173 12/29/19 12/29/19 07:12 07:12 WBC 12.57 H RBC 5.60 Hgb 15.4 Hct 45.4 MCV 81.1 MCH 27.5 MCHC 33.9 RDW 13.7 Plt Count 269 MPV 10.8 Immature Gran % 0.2 Neutrophils % 88.9 Lymphocytes % 6.9 Monocytes % 3.7 Eosinophils % 0.1 Basophils % 0.2 Absolute Neutrophils 11.17 H Absolute Lymphocytes 0.87 L Absolute Monocytes 0.47 Absolute Eosinophils 0.01 Absolute Basophils 0.03 Sodium 134 L Potassium 4.2 Chloride 99 Carbon Dioxide 17.5 L Anion Gap 17.5 H BUN 40 H Creatinine 1.99 H Estimated GFR/1.73 m2 34.94 Glucose 306 H Calcium 8.6 Magnesium 1.6 L Total Bilirubin 0.2 Conjugated Bilirubin 0.06 AST 18 ALT 30 Alkaline Phosphatase 94 Troponin I Total Protein 7.4 Albumin 4.0 Lipase
[2019-12-29 09:00] LABS: Lactate 2.1 mmol/L (0.6-1.4)
[2019-12-29] MEDS: Insulin Aspart 300 UNITS/3 ML PEN SC ×3 (09:12→21:44)
[2019-12-29] MEDS: Normal Saline Flush 10 ML SYR IVP (09:12)
[2019-12-29] MEDS: Metoprolol 50 MG TAB PO ×2 (09:13→19:54)
[2019-12-29] MEDS: Lisinopril 5 MG TAB PO (09:13)
[2019-12-29] MEDS: Aspirin 81 MG CHEW CH (09:13)
--- NOTE | 2019-12-29 09:19 | SCONE_ITS ---
Date of service: 12/29/19 Time of Service: 09:20 Assessment and Plan Assessment and plan (1) Abdominal lymphadenopathy: Status: Acute Assessment and plan: A\\ 54 year old with abdominal lyphadenopathy with a mass in the perihepatic area abutting the duodenum. I dont appreciate an obstruction. The mass doesn't seem to be originating from the duodenum. N?V resolved as well as his abdominal pain P\\ Recommend discussion with GI for EGD, endoscopic US and biopsy vs CT guided biopsy for diagnosis This could potentially be done as an outpatient as long as patient is able to eat and drink. If GI recommends EGD here to start then please let us know and we will get him on the schedule. History of Present Illness History of Present Illness Chief Complaint: Abdominal lymphadenopathy Narrative: This is a 54-year-old gentleman who is a severe diabetic with sequelae including retinopathy and foot ulcers in the past as well as heart disease status post CABG without recent cardiovascular symptoms. He had an acute onset of colicky left upper quadrant to mid abdomen abdominal pain after eating chicken with rice the night of presentation. He has had no fever. He did feel his mouth filled with saliva and had nausea with emesis upon presen tation to the ED. He did slowly gain pain control and stopped vomiting with antiemetics and bowel rest along with IV hydration. CT scan without contrast because of his elevated creatinine did reveal numerous enlarged patricia hepatis and retroperitoneal lymph nodes and masses with the largest hepatic mass about 8 x 4 cm in the patricia hepatis. There was a mass-effect on the proximal duodenum as well as some of the venous structures in the patient had been having bloating without emesis or pain for about a month prior to this presentation. This pain was colicky and slow to resolve. It also radiated straight into the back. His lipase was normal. There is no evidence of obstruction of the biliary tree. The pancreas appeared normal. The patient had no evidence of bleeding and had no hematemesis. He has never had an EGD or colonoscopy though he is over the age of 48. He describes symptoms of bloating and increased burping upon waking. He has not had any other episodes of N/V or abdominal pain. He had 2 days of diarrhea prior to him coming to the ER and took immodium. He also endorses some heart burn over the last 1-2 months. He was started on pepcid but that gave him diarrhea so he was switched to omeprazole. The omeprazole has helped his heart burn. He also inorses some night sweats usually again upon waking which he thought was due to hypoglycemia. He has lost maybe 10 lb in the last 6 months. When I asked him were his pain was last night he points to his LLQ/Left flank CT scan reviewed FINDINGS: Lungs: Visualized lung bases are unremarkable. Liver: The liver is normal. Gallbladder and bile ducts: The gallbladder is normal. Pancreas: The pancreas is normal. Spleen: The spleen is normal. Splenule. Adrenals: 1.5 cm indeterminate density left adrenal nodule. Normal right adrenal gland. Kidneys and ureters: The kidneys are normal. Stomach and bowel: Unremarkable. No obstruction. No mucosal thickening. Appendix: A normal appendix is identified. Intraperitoneal space: A 2.7 cm patricia hepatis nodule appears inseparable from the proximal duodenum (series 2 image 31 through 23 and coronal series 4 image 43 through 48). Vasculature: Coronary artery calcification. The aorta is normal. Lymph nodes: Numerous enlarged patricia hepatis lymph nodes/masses measuring up to 7.6 x 4.2 cm with associated mass effect and narrowing of the IVC and inferior displacement of the proximal duodenum. Several additional enlarged retroperitoneal lymph nodes coursing along the posterior margin the inferior vena cava Bladder: The bladder is normal. Reproductive: Unremarkable as visualized. Bones/joints: Unremarkable. No acute fracture. Soft tissues: Unremarkable. IMPRESSION: 1. Numerous enlarged patricia hepatis and retroperitoneal lymph nodes/masses with largest patricia hepatis mass measuring up to 7.6 x 4.2 cm. The lesions are nonspecific but concerning for malignancy of unclear etiology. A single patricia hepatis nodule appears inseparable from the proximal duodenum as a potential source of malignancy. Recommend further evaluation with contrast-enhanced CT or MRI. 2. There is resultant mass effect and prominent narrowing the inferior vena cava and left renal vein and inferior displacement the proximal duodenum without upstream obstruction. Further characterization of local mass effect would be better characterized by contrast enhanced CT or MRI. 3. 1.5 cm indeterminate density left adrenal nodule. Consults Consult date: 12/29/19 Requesting physician: Vince Brito Review of Systems Constitutional Constitutional: Denies fatigue, Denies fever(s), Denies headache(s), Denies l ethargy, Reports night sweats, Denies poor appetite and Reports weight loss Eyes Eyes: Denies change in vision ENT Ears, Nose, Mouth, and Throat: Reports as per HPI, Denies dysphagia and Denies headache(s) Cardiovascular Cardiovascular: Reports as per HPI, Denies chest pain, Denies chest pain at rest, Denies rapid heart rate, Denies irregular heart rhythm, Denies palpitations, Denies dyspnea and Denies dyspnea on exertion Respiratory Respiratory: Denies chest congestion, Denies cough, Denies dyspnea and Denies dyspnea on exertion Gastrointestinal Gastrointestinal: Reports as per HPI and Denies dysphagia Genitourinary Genitourinary: Reports system reviewed and no additional complaints, except as docu Musculoskeletal Musculoskeletal: Reports system reviewed and no additional complaints, except as docu Integumentary/Breasts Skin/Breast: Reports system reviewed and no additional complaints, except as docu Neurologic Neurologic: Reports system reviewed and no additional complaints, except as docu and Denies headache(s) Psychiatric Psychiatric: Reports system reviewed and no additional complaints, except as docu Endocrine Endocrine: Reports system reviewed and no additional complaints, except as docu, Denies fatigue and Denies palpitations Hematologic/Lymphatic Hematologic/Lymphatic: Denies easy bleeding, Denies easy bruising and Denies lymphadenopathy PFSH Medical History BPH associated with nocturia (Chronic 06/16/18) CKD (chronic kidney disease) (Chronic) COPD (chronic obstructive pulmonary disease) (Chronic) Diabetic retinopathy (Chronic) severe; laser RX--blind OD Essential hypertension (Chronic 08/05/13) Hypercholesterolemia (Chronic) Obesity (Chronic) 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 Maternal Uncle Cancer Social History Smoking/Tobacco Use Status: Former Tobacco Use Quit Date: 10/27/11 Second Hand Exposure: No Alcohol Intake: former Drug use: Never Substance use type: does not use Caregiver/Support person: No Household members: significant other Housing: house Communication Needs: None Do you need help understanding health information?: Never Pets and animals: Yes Pets and animals: cat(s) Sexually active: Yes Do you think of yourself as: straight/heterosexual Current gender identity: male What is your relationship status?: living with partner How often do you talk on the phone with friends or family?: three or more times per week How often do you get together with friends or relatives?: twice per week How often do you attend congregation or episcopalian services?: decline to answer Do you belong to any clubs or organized social groups?: no Panel score (0-1 are the most socially isolated patients): 2 What type of physical activity do you participate in: walking Duration: < 15 minutes/day Frequency: daily Antonia/Baptism: None Special antonia needs: No Seatbelt use: always Helmet use: No Drive intox or ride w/intox ready mix truck driver: No Do you feel safe at home: Yes Do you feel safe in your relationship?: Yes Exam Const General: cooperative, comfortable and no acute distress Orientation: alert and oriented x3 HENMT Head: normocephalic and atraumatic Eyes Pupils: PERRL Chest Other: Well healed scar over the sternum No axillary lymphadenopathy Resp Effort & Inspection: normal respiratory effort Auscultation: clear to auscultation bilaterally Cardio Rate: regular rate Rhythm: regular rhythm Heart Sounds: no gallops, no murmurs and no rubs GI Inspection: normal to inspection and non-distended Palpation: soft, no hepatosplenomegaly and nontender Auscultation: normal bowel sounds Other: No palpable inguinal lymphadenopathy Results Last Vital Signs Temp 98.2 F 12/29/19 07:34 Pulse 105 H 12/29/19 07:34 Resp 18 12/29/19 07:34 BP 127/80 12/29/19 07:34 Pulse Ox 96 12/29/19 07:34 Labs Result diagrams: 12/29/19 07:12 12/29/19 07:12 Labs: Laboratory Results - last 24 hr 12/28/19 12/28/19 12/29/19 23:20 23:20 02:02 WBC 10.43 RBC 5.89 Hgb 16.2 Hct 47.2 MCV 80.1 MCH 27.5 MCHC 34.3 RDW 13.7 Plt Count 306 MPV 10.5 Immature Gran % 0.8 Neutrophils % 60.9 Lymphocytes % 21.6 Monocytes % 11.2 Eosinophils % 4.8 Basophils % 0.7 Absolute Neutrophils 6.36 Absolute Lymphocytes 2.25 Absolute Monocytes 1.17 H Absolute Eosinophils 0.50 Absolute Basophils 0.07 Sodium 134 L Potassium 4.0 Chloride 100 Carbon Dioxide 21.7 Anion Gap 12.3 H BUN 40 H Creatinine 2.10 H Estimated GFR/1.73 m2 32.83 Glucose 319 H Lactate Calcium 9.0 Magnesium 1.6 L Total Bilirubin 0.2 Conjugated Bilirubin AST 16 ALT 28 Alkaline Phosphatase 92 Troponin I < 0.05 < 0.05 Total Protein 7.7 Albumin 3.9 Lipase 173 12/29/19 12/29/19 12/29/19 07:12 07:12 08:45 WBC 12.57 H RBC 5.60 Hgb 15.4 Hct 45.4 MCV 81.1 MCH 27.5 MCHC 33.9 RDW 13.7 Plt Count 269 MPV 10.8 Immature Gran % 0.2 Neutrophils % 88.9 Lymphocytes % 6.9 Monocytes % 3.7 Eosinophils % 0.1 Basophils % 0.2 Absolute Neutrophils 11.17 H Absolute Lymphocytes 0.87 L Absolute Monocytes 0.47 Absolute Eosinophils 0.01 Absolute Basophils 0.03 Sodium 134 L Potassium 4.2 Chloride 99 Carbon Dioxide 17.5 L Anion Gap 17.5 H BUN 40 H Creatinine 1.99 H Estimated GFR/1.73 m2 34.94 Glucose 306 H Lactate 2.1 H* Calcium 8.6 Magnesium 1.6 L Total Bilirubin 0.2 Conjugated Bilirubin 0.06 AST 18 ALT 30 Alkaline Phosphatase 94 Troponin I Total Protein 7.4 Albumin 4.0 Lipase
--- NOTE | 2019-12-29 10:03 | INITIAL_ITS ---
- If Service Date Differs Date of service: 12/29/19 Time of Service: 10:03 Care Management Initial Assess REASON FOR HOSPITALIZATION:: Abdominal Pain PAST MEDICAL HISTORY/PAST SURGICAL HISTORY:: Medical History . BPH associated with nocturia (Chronic 06/16/18). CKD (chronic kidney disease) (Chronic). COPD (chronic obstructive pulmonary disease) (Chronic). Diabetic retinopathy (Chronic). severe; laser RX--blind OD. Essential hypertension (Chronic 08/05/13). Hypercholesterolemia (Chronic). Obesity (Chronic). 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 Surgical History . History of cataract removal with insertion of prosthetic lens (Chronic). History of coronary artery bypass surgery (Chronic) PREVIOUS FUNCTIONAL STATUS/SOCIAL/FAMILY SUPPORTS:: Vivek lives in a single family home in [place] with his long time partner Barbi. Barbi's daughter and her family also live in the home. Vivek has been disabled for many years due to complications from his diabetes. CURRENT FUNCTIONAL STATUS:: Vivek was lying in bed when CM met with him. He stated that he no longer has nausea but still has some abdominal pain. He describes it as manageable. Vivek shared that he and Barbi are waiting to hear from the provider about the recommendations from [facility] [place] [place]. ADVANCE DIRECTIVES:: none on file Has patient been provided with information about the portal?: Yes Did the patient sign up for the portal?: No CODE STATUS:: Full Code INSURANCE COVERAGE / FINANCIAL ISSUES:: Medicare CURRENT HOME/COMMUNITY SERVICES/EQUIPMENT:: none PRIMARY CARE PHYSICIAN:: Travis Castro POTENTIAL DISCHARGE NEEDS:: Follow up with surgery, PCP and discharge plan of care PATIENT/FAMILY EDUCATION NEEDS:: Discharge plan, limitations, follow up plan and Ask Me Three TRANSPORTATION:: via private vehicle or ambulance, depending on plan of care PLAN:: Vivek Carlsons plan of care is unclear at this time. He may require transfer to a tertiary care facility for additional testing and/or treatment. CM will continue to suppport patient, family and discharge planning needs.
[2019-12-29 11:12] LABS: INR 1.1 (0.9-1.1); PTT Activated 23.9 sec (21.0-31.4); Prothrombin Time 10.7 sec (9.3-11.0)
[2019-12-29] MEDS: MAGNESIUM SULFATE 2 GM/50 ML BAG IVPB (11:20)
--- NOTE | 2019-12-29 15:23 | W.NUTCONSULT ---
Date of service: 12/29/19 Time of Service: 15:23 Nutritional Consult ASSESSMENT: 54 year old male admitted with abdominal pain/mass wtih abdominal lymphadenopathy, awaiting biopsy. PMH: s/p CABG, COPD, CKD, DM2, obesity, hyperlipidemia, diabetic foot ulcers, retinopathy. Currently NPO. Labs indicates elevated blood sugars, BUN and low magnesium. CDE consult pending, Mg being repleted and IV hydration in place to normalize BUN. Poorly controlled diabetes prior to admission puts Vivek at high nutritional risk in view of inability to manage self care and impaired ability to prepare appropriate foods for optimal blood sugar control. NUTRITIONAL DIAGNOSIS: nutrition related activities of daily living and instrumental activities of daily living (FH-6.2) altered nturition related laboratory values- elevated blood sugars Undesirable food choices Limited adherence to nutrition related recommendations INTERVENTION: currently NPO DM consult pending educate Vivek on optimal food choices Referral to meals on wheel at discharge if needed/homebound referral to [facility] at discharge if willing MONITORING AND EVALUATION: weight, po intake, labs monitored daily Time Spent in Nutritional Counseling and Treatment: 0 time spent face to face
--- NOTE | 2019-12-29 15:33 | CHAPLAIN ---
Vivek was resting in bed when I visited. His partner, Barbi was with him. I introduced myself, explained my role and offered support. I will visit another time. At this point, it's not clear what the direction of Vivek's care will be.
--- NOTE | 2019-12-29 16:33 | PGE_ITS ---
Date of Service Date of service: 12/29/19 Time of Service: 16:33 Subjective Subjective Interval history since last seen: Multiple abdominal masses, biggest one in patricia hepatis possible causing partial duodenal obstruction. Case discussed with Dr Santana and GI at [facility] [place]: plan is for EGD/EUS/bx tomorrow. The patient has been tolerating ice chips today. Will try clears for dinner, NPO after midnight prior to procedure tomorrow. Pain is 3-4/10, epigastric. Will write for prn fentanyl - effective yesterday. Crackles at bases - decrease IVF. Abdomen is soft, tender in epigastrium. No BM or flatus since yesterday. Trial clears tonight. Encourage IS. Ambulate. Objective Objective Clinical Data: Abnormal lab results 12/28/19 12/28/19 12/29/19 Range/Units 23:20 23:20 07:12 WBC (4.4-10.8) k/cumm Absolute Neutrophils (1.2-6.7) k/cumm Absolute Lymphocytes (1.2-3.4) k/cumm Absolute Monocytes 1.17 H (0.11-0.7) k/cumm Sodium 134 L 134 L (136-145) mmol/L Carbon Dioxide 17.5 L (21.0-32.0) mmol/L Anion Gap 12.3 H 17.5 H (3-11) mmol/L BUN 40 H 40 H (7-18) mg/dL Creatinine 2.10 H 1.99 H (0.70-1.30) mg/dL Glucose 319 H 306 H (74-106) mg/dL Lactate (0.6-1.4) mmol/L Magnesium 1.6 L 1.6 L (1.8-2.4) mg/dL 12/29/19 12/29/19 Range/Units 07:12 08:45 WBC 12.57 H (4.4-10.8) k/cumm Absolute Neutrophils 11.17 H (1.2-6.7) k/cumm Absolute Lymphocytes 0.87 L (1.2-3.4) k/cumm Absolute Monocytes (0.11-0.7) k/cumm Sodium (136-145) mmol/L Carbon Dioxide (21.0-32.0) mmol/L Anion Gap (3-11) mmol/L BUN (7-18) mg/dL Creatinine (0.70-1.30) mg/dL Glucose (74-106) mg/dL Lactate 2.1 H* (0.6-1.4) mmol/L Magnesium (1.8-2.4) mg/dL Vital Signs Temperature 37.0 C 12/29/19 11:03 Temperature Source Tympanic 12/29/19 11:03 Pulse 86 12/29/19 11:03 Pulse Rhythm Regular 12/29/19 16:02 Pulse 82 12/29/19 02:01 Respiratory Rate 17 12/29/19 11:03 Respiratory Effort Non-Labored 12/29/19 16:02 Respiratory Depth Normal 12/29/19 16:02 Respiratory Pattern Normal 12/29/19 16:02 Blood Pressure 144/91 H 12/29/19 11:03 Blood Pressure Mean 100 12/29/19 02:01 Pulse Oximetry 98 12/29/19 11:03 Oxygen Delivery Method Room Air 12/29/19 11:03 Oxygen Flow Rate 0 12/29/19 11:03 Pain Level 2 12/29/19 11:03 Intake & Output 12/28/19 12/29/19 12/29/19 23:59 11:59 23:59 Intake Total 999 Balance 999 Weight 108.409 kg 107.5 kg Intake: IV 999 Other: Urine Appearance Clear Clear Laboratory Results WBC 12.57 k/cumm (4.4-10.8) H 12/29/19 07:12 RBC 5.60 m/cumm (4.50-6.00) 12/29/19 07:12 Hgb 15.4 g/dL (13.5-17.5) 12/29/19 07:12 Hct 45.4 % (40.0-50.0) 12/29/19 07:12 MCV 81.1 fL (80-95) 12/29/19 07:12 MCH 27.5 pg (27.0-33.0) 12/29/19 07:12 MCHC 33.9 g/dL (32.0-36.0) 12/29/19 07:12 RDW 13.7 % (11.8-14.1) 12/29/19 07:12 Plt Count 269 x1000/uL (130-400) 12/29/19 07:12 MPV 10.8 fL (8.0-11.0) 12/29/19 07:12 Immature Gran % 0.2 % 12/29/19 07:12 Neutrophils % 88.9 12/29/19 07:12 Lymphocytes % 6.9 12/29/19 07:12 Monocytes % 3.7 12/29/19 07:12 Eosinophils % 0.1 12/29/19 07:12 Basophils % 0.2 12/29/19 07:12 Absolute Neutrophils 11.17 k/cumm (1.2-6.7) H 12/29/19 07:12 Absolute Lymphocytes 0.87 k/cumm (1.2-3.4) L 12/29/19 07:12 Absolute Monocytes 0.47 k/cumm (0.11-0.7) 12/29/19 07:12 Absolute Eosinophils 0.01 k/cumm (0.0-0.7) 12/29/19 07:12 Absolute Basophils 0.03 k/cumm (0.0-0.2) 12/29/19 07:12 PT 10.7 sec (9.3-11.0) 12/29/19 07:12 INR 1.1 (0.9-1.1) 12/29/19 07:12 APTT 23.9 sec (21.0-31.4) 12/29/19 07:12 Sodium 134 mmol/L (136-145) L 12/29/19 07:12 Potassium 4.2 mmol/L (3.5-5.1) 12/29/19 07:12 Chloride 99 mmol/L (98-107) 12/29/19 07:12 Carbon Dioxide 17.5 mmol/L (21.0-32.0) L 12/29/19 07:12 Anion Gap 17.5 mmol/L (3-11) H 12/29/19 07:12 BUN 40 mg/dL (7-18) H 12/29/19 07:12 Creatinine 1.99 mg/dL (0.70-1.30) H 12/29/19 07:12 Estimated GFR/1.73 m2 34.94 (mL/min/1.73m2) 12/29/19 07:12 Glucose 306 mg/dL (74-106) H 12/29/19 07:12 Lactate 2.1 mmol/L (0.6-1.4) H* 12/29/19 08:45 Calcium 8.6 mg/dL (8.5-10.1) 12/29/19 07:12 Magnesium 1.6 mg/dL (1.8-2.4) L 12/29/19 07:12 Total Bilirubin 0.2 mg/dL (0.2-1.0) 12/29/19 07:12 Conjugated Bilirubin 0.06 mg/dL (0.00-0.20) 12/29/19 07:12 AST 18 U/L (15-37) 12/29/19 07:12 ALT 30 U/L (16-63) 12/29/19 07:12 Alkaline Phosphatase 94 U/L (46-116) 12/29/19 07:12 Troponin I < 0.05 ng/Ml (<0.06) 12/29/19 02:02 Total Protein 7.4 g/dL (6.4-8.2) 12/29/19 07:12 Albumin 4.0 g/dL (3.4-5.0) 12/29/19 07:12 Lipase 173 U/L (73-393) 12/28/19 23:20
[2019-12-30] VITALS (7 sets, daily range): BP systolic 104–155; BP diastolic 49–93; PULSE 70–102; RESP 12–18; TEMP 36.5–37.6; O2SAT 95–99
[2019-12-30] MEDS: Lactated Ringers 1,000 ML 75 ML IV ×2 (02:30→21:12)
[2019-12-30 06:53] LABS: Abs Immature Grans 0.03 k/cumm (0.0-0.09); Absolute Basophil Count 0.03 k/cumm (0.0-0.2); Absolute Eosinophil Count 0.16 k/cumm (0.0-0.7); Absolute Lymphocyte Count 1.88 k/cumm (1.2-3.4); Absolute Monocyte Count 1.22 k/cumm (0.11-0.7); Absolute Neutrophil Count 6.69 k/cumm (1.2-6.7); Basophils % 0.3; Eosinophils % 1.6; HCT 45.4 % (40.0-50.0); HGB 15.4 g/dL (13.5-17.5); Immature Grans % 0.3 %; Lymphocytes % 18.8; Mean Corp. HGB Concentration 33.9 g/dL (32.0-36.0); Mean Corpuscular Hemoglobin 27.6 pg (27.0-33.0); Mean Corpuscular Volume 81.4 fL (80-95); Mean Platelet Volume 10.7 fL (8.0-11.0); Monocytes % 12.2; Neutrophils % 66.8; Platelet Count 237 x1000/uL (130-400); RBC 5.58 m/cumm (4.50-6.00); White Blood Cell Count 10.01 k/cumm (4.4-10.8)
[2019-12-30 07:10] LABS: ALT 19 U/L (16-63); AST 20 U/L (15-37); Albumin 3.2 g/dL (3.4-5.0); Alkaline Phosphatase 81 U/L (46-116); Anion Gap 8.4 mmol/L (3-11); BUN 22 mg/dL (7-18); Bilirubin, Direct 0.13 mg/dL (0.00-0.20); Bilirubin, Total 0.7 mg/dL (0.2-1.0); CO2 26.6 mmol/L (21.0-32.0); CREATININE 1.42 mg/dL (0.70-1.30); Calcium 8.5 mg/dL (8.5-10.1); Chloride 102 mmol/L (98-107); Estimated GFR 51.57 (mL/min/1.73m2); Glucose 200 mg/dL (74-106); Magnesium 1.5 mg/dL (1.8-2.4); Potassium 4.1 mmol/L (3.5-5.1); Sodium 137 mmol/L (136-145); Total Protein 6.5 g/dL (6.4-8.2)
[2019-12-30] MEDS: Lisinopril 5 MG TAB PO (07:55)
[2019-12-30] MEDS: Metoprolol 50 MG TAB PO ×2 (07:55→21:10)
[2019-12-30] MEDS: Normal Saline Flush 10 ML SYR IVP (07:55)
[2019-12-30] MEDS: Pantoprazole 40 MG VIAL IVP (07:55)
[2019-12-30] MEDS: MAGNESIUM SULFATE 4 GM/100 ML BAG IVPB (09:13)
--- NOTE | 2019-12-30 09:51 | PGE_ITS ---
Date of Service Date of service: 12/30/19 Time of Service: 09:51 Assessment and Plan Assessment and plan (1) Abdominal lymphadenopathy: Status: Acute Assessment and plan: no signs of obstruction on CT pt going for EUS guided bx today at [facility] [place] will follow peripherally Objective Objective Clinical Data: Abnormal lab results 12/30/19 12/30/19 Range/Units 06:00 06:00 Absolute Monocytes 1.22 H (0.11-0.7) k/cumm BUN 22 H D (7-18) mg/dL Creatinine 1.42 H (0.70-1.30) mg/dL Glucose 200 H D (74-106) mg/dL Magnesium 1.5 L (1.8-2.4) mg/dL Albumin 3.2 L (3.4-5.0) g/dL Vital Signs Temperature 36.7 C 12/30/19 07:14 Temperature Source Tympanic 12/30/19 07:14 Pulse 84 12/30/19 07:14 Pulse Rhythm Regular 12/29/19 21:10 Pulse 82 12/29/19 02:01 Respiratory Rate 17 12/30/19 07:14 Respiratory Effort Non-Labored 12/29/19 21:10 Respiratory Depth Normal 12/29/19 21:10 Respiratory Pattern Normal 12/29/19 21:10 Blood Pressure 155/93 H 12/30/19 07:14 Blood Pressure Mean 100 12/29/19 02:01 Pulse Oximetry 99 12/30/19 07:14 Oxygen Delivery Method Room Air 12/30/19 07:14 Oxygen Flow Rate 0 12/30/19 07:14 Pain Level 0 12/30/19 07:14 Intake & Output 12/29/19 12/29/19 12/30/19 11:59 23:59 11:59 Intake Total 1000 / 2232.5 1232.5 / 2232.5 746.25 / 746.25 Output Total 700 / 700 Balance 1000 / 2232.5 1232.5 / 2232.5 46.25 / 46.25 Weight 107.5 kg 106.4 kg Intake: IV 1000 / 2232.5 1232.5 / 2232.5 746.25 / 746.25 Output: Urine 700 / 700 Other: Urine Color Yellow Urine Appearance Clear Clear Clear Voiding Methods Toilet Urinal Laboratory Results WBC 10.01 k/cumm (4.4-10.8) 12/30/19 06:00 RBC 5.58 m/cumm (4.50-6.00) 12/30/19 06:00 Hgb 15.4 g/dL (13.5-17.5) 12/30/19 06:00 Hct 45.4 % (40.0-50.0) 12/30/19 06:00 MCV 81.4 fL (80-95) 12/30/19 06:00 MCH 27.6 pg (27.0-33.0) 12/30/19 06:00 MCHC 33.9 g/dL (32.0-36.0) 12/30/19 06:00 RDW 14.0 % (11.8-14.1) 12/30/19 06:00 Plt Count 237 x1000/uL (130-400) 12/30/19 06:00 MPV 10.7 fL (8.0-11.0) 12/30/19 06:00 Immature Gran % 0.3 % 12/30/19 06:00 Neutrophils % 66.8 12/30/19 06:00 Lymphocytes % 18.8 12/30/19 06:00 Monocytes % 12.2 12/30/19 06:00 Eosinophils % 1.6 12/30/19 06:00 Basophils % 0.3 12/30/19 06:00 Absolute Neutrophils 6.69 k/cumm (1.2-6.7) 12/30/19 06:00 Absolute Lymphocytes 1.88 k/cumm (1.2-3.4) 12/30/19 06:00 Absolute Monocytes 1.22 k/cumm (0.11-0.7) H 12/30/19 06:00 Absolute Eosinophils 0.16 k/cumm (0.0-0.7) 12/30/19 06:00 Absolute Basophils 0.03 k/cumm (0.0-0.2) 12/30/19 06:00 PT 10.7 sec (9.3-11.0) 12/29/19 07:12 INR 1.1 (0.9-1.1) 12/29/19 07:12 APTT 23.9 sec (21.0-31.4) 12/29/19 07:12 Sodium 137 mmol/L (136-145) 12/30/19 06:00 Potassium 4.1 mmol/L (3.5-5.1) 12/30/19 06:00 Chloride 102 mmol/L (98-107) 12/30/19 06:00 Carbon Dioxide 26.6 mmol/L (21.0-32.0) 12/30/19 06:00 Anion Gap 8.4 mmol/L (3-11) 12/30/19 06:00 BUN 22 mg/dL (7-18) H D 12/30/19 06:00 Creatinine 1.42 mg/dL (0.70-1.30) H 12/30/19 06:00 Estimated GFR/1.73 m2 51.57 (mL/min/1.73m2) 12/30/19 06:00 Glucose 200 mg/dL (74-106) H D 12/30/19 06:00 Lactate 2.1 mmol/L (0.6-1.4) H* 12/29/19 08:45 Calcium 8.5 mg/dL (8.5-10.1) 12/30/19 06:00 Magnesium 1.5 mg/dL (1.8-2.4) L 12/30/19 06:00 Total Bilirubin 0.7 mg/dL (0.2-1.0) 12/30/19 06:00 Conjugated Bilirubin 0.13 mg/dL (0.00-0.20) 12/30/19 06:00 AST 20 U/L (15-37) 12/30/19 06:00 ALT 19 U/L (16-63) 12/30/19 06:00 Alkaline Phosphatase 81 U/L (46-116) 12/30/19 06:00 Troponin I < 0.05 ng/Ml (<0.06) 12/29/19 02:02 Total Protein 6.5 g/dL (6.4-8.2) 12/30/19 06:00 Albumin 3.2 g/dL (3.4-5.0) L 12/30/19 06:00 Lipase 173 U/L (73-393) 12/28/19 23:20
[2019-12-30 10:21] LABS: Iron 62 ug/dL (65-175); Total Iron Binding Capacity 255 ug/dL (250-450); Transferrin Sat 24 % (20-55)
--- NOTE | 2019-12-30 10:22 | CMPROGNOTE_ITS ---
- If Service Date Differs Date of service: 12/30/19 Time of Service: 10:22 Care Management Progress Note S/O: Vivek was lying in bed when CM met with him. His s/o, Barbi and his son, Vivek were in the room. He reported Per MD, Vivek will go to [facility] [place] today. There is a possibility that he will stay at [facility] for [place]. Vivek stated that he would like a shower prior to leaving. CM will continue to follow. A: Vivek is a 54 year old male admitted to [facility] on 12/29/19 with abdominal mass, intractable abdominal pain. P: Vivek will go to [facility] and back to [facility] this afternoon for an EGD/EUS/bx. There is a possibility that he will stay at [facility], if surgery is indicated. He will transport via ambulance. His disposition post procedure is unclear at this time. Anticipate he will return home when medically cleared. CM will continue to support Sohail, his family, and discharge planning considerations.
--- NOTE | 2019-12-30 10:22 | PDOC.CMPRO ---
- If Service Date Differs Date of service: 12/30/19 Time of Service: 10:22 Care Management Progress Note S/O: Vivek was lying in bed when CM met with him. His s/o, Barbi and his son, Vivek were in the room. He reported Per MD, Vivek will go to [facility] for a down and back procedure today. There is a possibility that he will stay at [facility] for surgery. Vivek stated that he would like a shower prior to leaving. CM will continue to follow. A: Vivek is a 54 year old male admitted to [facility] on 12/29/19 with abdominal mass, intractable abdominal pain. P: Vivek will go to [facility] and back to [facility] this afternoon for an EGD/EUS/bx. There is a possibility that he will stay at [facility], if surgery is indicated. He will transport via ambulance. His disposition post procedure is unclear at this time. Anticipate he will return home when medically cleared. CM will continue to support Sohail, his family, and discharge planning considerations.
--- NOTE | 2019-12-30 11:36 | PGE_ITS ---
Date of Service Date of service: 12/30/19 Time of Service: 11:36 Assessment and Plan Assessment and plan (1) Abdominal mass: Status: Acute Assessment and plan: New finding; for bx today at [facility]. Concern for partial duodenal obstruction. Qualifiers: Abdominal location: other location Qualified Code(s): R19.09 - Other intra-abdominal and pelvic swelling, mass and lump (2) Nausea and vomiting: Status: Resolved Assessment and plan: Resolved. Presumably due to #1. 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 Controlled here. No change in tx. (5) COPD (chronic obstructive pulmonary disease): Status: Chronic Assessment and plan: Not in acute exacerbation. No change in tx. (6) Afib: Status: Acute Assessment and plan: Paroxysmal, 1 episode of 13 beats happenining early this morning. Unclear what the patient was doing at that time. He was hy pomagnesemic, which could have triggered it, but with h/o COPD, cardiac disease and obesity, he is also a candidate for sleep study for high probability of CHRISTIAN. Should have echo and sleep study as outpatient as well as cardiac event recorder. (7) DVT prophylaxis: Status: Acute Assessment and plan: SC heparin is on hold for procedure (8) Discharge planning issues: Status: Acute Assessment and plan: Full code. Going [id number] to [facility] for EGD/EUG/bx today. Likely discharge home tomorrow with a cardiac event recorder if all goes well Subjective Subjective Interval history since last seen: Mr Serrano states he has no abdominal pain today. He tolerated a clear liquid dinner, has been NPO after midnight, + flatus, no BM. Denies dizziness, chest pain, palpitations, shortness of breath. Reports cough productive of white - clear sputum. On tele, had an episode of Afib (13 beats) at around 6 am. The patient was not sure if he was awake or asleep at that time. States that he does not think he snores or snores rarely. Sometimes gets dizzy when he gets up. Scheduled to have EGD/EUS/bx at [facility] (down and back) this afternoon. Exam Narrative Exam Narrative: General: Middle-aged male, has difficulty finding his room when walking in the hallway (difficulty seeing), A&Ox3, looks comfortable HEENT: EOMI, but slightly disconjugate gaze, MMM Heart: RRR, no m/r/g Lungs: CTAB Abdomen: soft, nontender, nondistended Extremities: no e/c/c BLE's, hyperpigmentation of tibial surfaces from old healed wounds/bruises Objective Objective Clinical Data: Abnormal lab results 12/30/19 12/30/19 12/30/19 Range/Units 06:00 06:00 06:00 Absolute Monocytes 1.22 H (0.11-0.7) k/cumm BUN 22 H D (7-18) mg/dL Creatinine 1.42 H (0.70-1.30) mg/dL Glucose 200 H D (74-106) mg/dL Magnesium 1.5 L (1.8-2.4) mg/dL Iron 62 L (65-175) ug/dL Albumin 3.2 L (3.4-5.0) g/dL Vital Signs Temperature 36.7 C 12/30/19 07:14 Temperature Source Tympanic 12/30/19 07:14 Pulse 84 12/30/19 07:14 Pulse Rhythm Regular 12/29/19 21:10 Pulse 82 12/29/19 02:01 Respiratory Rate 17 12/30/19 07:14 Respiratory Effort Non-Labored 12/29/19 21:10 Respiratory Depth Normal 12/29/19 21:10 Respiratory Pattern Normal 12/29/19 21:10 Blood Pressure 155/93 H 12/30/19 07:14 Blood Pressure Mean 100 12/29/19 02:01 Pulse Oximetry 99 12/30/19 07:14 Oxygen Delivery Method Room Air 12/30/19 07:14 Oxygen Flow Rate 0 12/30/19 07:14 Pain Level 0 12/30/19 07:14 Intake & Output 12/29/19 12/29/19 12/30/19 11:59 23:59 11:59 Intake Total 1000 / 2232.5 1232.5 / 2232.5 746.25 / 746.25 Output Total 700 / 700 Balance 1000 / 2232.5 1232.5 / 2232.5 46.25 / 46.25 Weight 107.5 kg 106.4 kg Intake: IV 1000 / 2.5 1232.5 / 2232.5 746.25 / 746.25 Output: Urine 700 / 700 Other: Urine Color Yellow Urine Appearance Clear Clear Clear Voiding Methods Toilet Urinal Laboratory Results WBC 10.01 k/cumm (4.4-10.8) 12/30/19 06:00 RBC 5.58 m/cumm (4.50-6.00) 12/30/19 06:00 Hgb 15.4 g/dL (13.5-17.5) 12/30/19 06:00 Hct 45.4 % (40.0-50.0) 12/30/19 06:00 MCV 81.4 fL (80-95) 12/30/19 06:00 MCH 27.6 pg (27.0-33.0) 12/30/19 06:00 MCHC 33.9 g/dL (32.0-36.0) 12/30/19 06:00 RDW 14.0 % (11.8-14.1) 12/30/19 06:00 Plt Count 237 x1000/uL (130-400) 12/30/19 06:00 MPV 10.7 fL (8.0-11.0) 12/30/19 06:00 Immature Gran % 0.3 % 12/30/19 06:00 Neutrophils % 66.8 12/30/19 06:00 Lymphocytes % 18.8 12/30/19 06:00 Monocytes % 12.2 12/30/19 06:00 Eosinophils % 1.6 12/30/19 06:00 Basophils % 0.3 12/30/19 06:00 Absolute Neutrophils 6.69 k/cumm (1.2-6.7) 12/30/19 06:00 Absolute Lymphocytes 1.88 k/cumm (1.2-3.4) 12/30/19 06:00 Absolute Monocytes 1.22 k/cumm (0.11-0.7) H 12/30/19 06:00 Absolute Eosinophils 0.16 k/cumm (0.0-0.7) 12/30/19 06:00 Absolute Basophils 0.03 k/cumm (0.0-0.2) 12/30/19 06:00 PT 10.7 sec (9.3-11.0) 12/29/19 07:12 INR 1.1 (0.9-1.1) 12/29/19 07:12 APTT 23.9 sec (21.0-31.4) 12/29/19 07:12 Sodium 137 mmol/L (136-145) 12/30/19 06:00 Potassium 4.1 mmol/L (3.5-5.1) 12/30/19 06:00 Chloride 102 mmol/L (98-107) 12/30/19 06:00 Carbon Dioxide 26.6 mmol/L (21.0-32.0) 12/30/19 06:00 Anion Gap 8.4 mmol/L (3-11) 12/30/19 06:00 BUN 22 mg/dL (7-18) H D 12/30/19 06:00 Creatinine 1.42 mg/dL (0.70-1.30) H 12/30/19 06:00 Estimated GFR/1.73 m2 51.57 (mL/min/1.73m2) 12/30/19 06:00 Glucose 200 mg/dL (74-106) H D 12/30/19 06:00 Lactate 2.1 mmol/L (0.6-1.4) H* 12/29/19 08:45 Calcium 8.5 mg/dL (8.5-10.1) 12/30/19 06:00 Magnesium 1.5 mg/dL (1.8-2.4) L 12/30/19 06:00 Iron 62 ug/dL (65-175) L 12/30/19 06:00 TIBC 255 ug/dL (250-450) 12/30/19 06:00 Transferrin % Sat 24 % (20-55) 12/30/19 06:00 Total Bilirubin 0.7 mg/dL (0.2-1.0) 12/30/19 06:00 Conjugated Bilirubin 0.13 mg/dL (0.00-0.20) 12/30/19 06:00 AST 20 U/L (15-37) 12/30/19 06:00 ALT 19 U/L (16-63) 12/30/19 06:00 Alkaline Phosphatase 81 U/L (46-116) 12/30/19 06:00 Troponin I < 0.05 ng/Ml (<0.06) 12/29/19 02:02 Total Protein 6.5 g/dL (6.4-8.2) 12/30/19 06:00 Albumin 3.2 g/dL (3.4-5.0) L 12/30/19 06:00 Lipase 173 U/L (73-393) 12/28/19 23:20
[2019-12-30 14:30] LABS: Ferritin 253 ng/mL (26-388)
[2019-12-30] MEDS: Insulin Aspart 300 UNITS/3 ML PEN SC (21:10)
[2019-12-30] MEDS: Ciprofloxacin 500 MG TAB PO (21:34)
[2019-12-31] MEDS: Acetaminophen 325 MG TAB PO (00:53)
--- NOTE | 2019-12-31 02:37 | NUR.NOTE ---
Patient state he wants to discontinue the intravenous fluid, because the pump keeps going off whenever his hand is bent. State it is making falling asleep very difficult
[2019-12-31 04:36] VITALS: BP 135/70; PULSE 64; RESP 16; TEMP 37.4; O2SAT 97
[2019-12-31 06:52] VITALS: BP 144/90; PULSE 78; RESP 18; TEMP 36.6; O2SAT 95
[2019-12-31 06:56] LABS: Anion Gap 7.2 mmol/L (3-11); BUN 22 mg/dL (7-18); CO2 29.8 mmol/L (21.0-32.0); CREATININE 1.64 mg/dL (0.70-1.30); Calcium 8.5 mg/dL (8.5-10.1); Chloride 100 mmol/L (98-107); Estimated GFR 43.67 (mL/min/1.73m2); Glucose 240 mg/dL (74-106); Magnesium 1.9 mg/dL (1.8-2.4); Potassium 3.9 mmol/L (3.5-5.1); Sodium 137 mmol/L (136-145)
[2019-12-31 07:29] VITALS: PULSE 77
[2019-12-31] MEDS: Normal Saline Flush 10 ML SYR IVP (08:14)
[2019-12-31] MEDS: Pantoprazole 40 MG VIAL IVP (08:14)
[2019-12-31] MEDS: Lisinopril 5 MG TAB PO (08:15)
[2019-12-31] MEDS: Ciprofloxacin 500 MG TAB PO (08:15)
[2019-12-31] MEDS: Metoprolol 50 MG TAB PO (08:15)
[2019-12-31] MEDS: Insulin Aspart 300 UNITS/3 ML PEN SC (08:16)
--- NOTE | 2019-12-31 10:38 | W.PM.DS.N ---
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 (5) COPD (chronic obstructive pulmonary disease): Status: Chronic (6) Afib: Status: Acute Discharge Plan Disposition Patient Disposition: HOME Condition: Improving Discharge Details Chief Complaint: Nausea/Vomit/Diar Clinical Impression: Abdominal pain, Nausea and vomiting, Abdominal mass, Abdominal lymphadenopathy Reason For Visit: ABDOMINAL MASS, INTRACTIBLE ABDOMINAL PAIN Admit Date/Time: 12/29/19 02:51 Admit Provider: Vince Brito Attending Provider: Vince Brito Primary Care Provider: Travis Castro ED [facility] Hospital Course: This is a 54-year-old gentleman who is a severe diabetic with sequelae including retinopathy and foot ulcers in the past as well as heart disease status post CABG without recent cardiovascular symptoms. He had an acute onset of colicky left upper quadrant to mid abdomen abdominal pain after eating chicken with rice the night of presentation. He has had no fever. He did feel his mouth filled with saliva and had nausea with emesis upon presentation to the ED. He did slowly gain pain control and stopped vomiting with antiemetics and bowel rest along with IV hydration. CT scan without contrast because of his elevated creatinine did reveal numerous enlarged patricia hepatis and retroperitoneal lymph nodes and masses with the largest hepatic mass about 8 x 4 cm in the patricia hepatis. There was a mass-effect on the proximal duodenum as well as some of the venous structures in the patient had been having bloating without emesis or pain for about a month prior to this presentation. He has never had an EGD or colonoscopy though he is over the age of 48. He has had no weight loss. His urinary habits have been normal. Arrangements made for him to go to [facility] for biopsy with results are still pending. He was returned to [facility] without incident. He is pain is resolved. There was no evidence of obstruction on endoscope and patients diet was advanced which he tolerated well. He will be discharged to home and will follow up outpatient with pcp for results and further recommendations. Home Meds and New Rx's Prescriptions: Continued lisinopril 5 mg tablet 5 mg PO DAILY Qty: 90 RF: 4 ASPIRIN 81 MG tablet 1 tab PO DAILY RF: 0 (DME) blood-glucose meter [[email or web address] Autocode Meter] 1 EACH kit 1 ea Miscellaneous QID Qty: 1 RF: 0 (DME) BD Regular Bevel [place] 21 gauge x 1 1/2 needle 1 ea Miscellaneous DAILY Qty: 90 RF: 12 glipizide [Glucotrol] 10 mg tablet 10 mg PO BID Qty: 180 RF: 4 ezetimibe [Zetia] 10 mg tablet 10 mg PO DAILY Qty: 90 RF: 3 metoprolol tartrate 50 mg tablet 50 mg PO BID Qty: 180 RF: 3 Januvia 100 mg tablet 100 mg PO DAILY Qty: 90 RF: 3 omeprazole 20 mg capsule,delayed release(DR/EC) 20 mg PO DAILY Qty: 60 RF: 6 (DME) Blood Glucose Test Strip 1 ea Miscellaneous QID Qty: 360 RF: 3 (DME) lancets [[employer] Lancets] 28 gauge misc 1 ea Miscellaneous QID Qty: 360 RF: 4 Basaglar KwikPen U-100 Insulin 100 unit/mL (3 mL) insulin pen 80 unit subcut DAILY Qty: 12 RF: 12 Discharge Instructions Instructions: Acute Abdominal Pain (DC) Additional Instructions: continue usual medications as directed drink at least 6-8 glasses of water daily to stay well hydrated. Stand Alone Forms: Nursing Discharge Form Referrals: Travis Castro DO [Primary Care Provider] - (one week) Activity:: Activity as Tolerated Equipment/Supplies:: No Equipment Needed Diet:: As Tolerated Discharge Orders Discharge Orders: Discharge Order (Routine); Ordered 12/31/19 Ordered By: Liliana Sanchez DS: Summary Status at Discharge Functional status at discharge: independent ambulation Overall status at discharge: patient is progressing back to baseline Mental Status: mental status grossly normal Speech and Movement: speech and movement normal Mood: congruent mood Affect: normal affect Exam Const General: cooperative, healthy appearing, comfortable and no acute distress Nutritional Appearance: obese Orientation: alert, awake and oriented x3 HENMT Head: normal to inspection, normocephalic and atraumatic Mouth: oral mucosae normal Eyes General: dysmorphic Visual Guevara: 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) Alignment and Position: alignment abnormal right Eyelids: eyelids normal Sclera: sclerae normal EOM: EOM abnormal Resp Effort & Inspection: normal respiratory effort Auscultation: clear to auscultation bilaterally Cardio Rate: regular rate Rhythm: regular rhythm GI Inspection: obesity Palpation: soft Auscultation: normal bowel sounds and other (passing flatus) Skin General skin exam: no rashes or lesions noted Neuro General: alert, awake and oriented x3 Extrem General: normal to inspection and no pedal edema Psych Appearance: grossly normal Mental Status: mental status grossly normal Speech and Movement: speech and movement normal Mood: congruent mood Affect: normal affect Attitude: cooperative Thought Process: normal Thought Content: normal Insight: insight good Judgment: judgment good DS: Data Vitals/I&O Vitals and I&O: Vital Signs Temperature 36.6 C 12/31/19 06:52 Temperature Source Temporal Artery Scan 12/31/19 06:52 Pulse 78 12/31/19 06:52 Pulse Rhythm Regular 12/31/19 02:40 Pulse 82 12/29/19 02:01 Respiratory Rate 18 12/31/19 06:52 Respiratory Effort Non-Labored 12/31/19 02:40 Respiratory Depth Normal 12/31/19 02:40 Respiratory Pattern Normal 12/31/19 02:40 Blood Pressure 144/90 H 12/31/19 06:52 Blood Pressure Mean 100 12/29/19 02:01 Pulse Oximetry 95 12/31/19 06:52 Oxygen Delivery Method Room Air 12/31/19 06:52 Oxygen Flow Rate 0 12/31/19 06:52 Pain Level 0 12/31/19 06:52 Comment 12/30/19 15:56 Intake & Output 12/30/19 12/30/19 12/31/19 11:59 23:59 11:59 Intake Total 746.25 / 1887.50 1141.25 / 1887.50 Output Total 700 / 700 Balance 46.25 / 1187.50 1141.25 / 1187.50 Weight 106.4 kg 105.7 kg Intake: IV 746.25 / 1887.50 1141.25 / 1887.50 Output: Urine 700 / 700 Other: Urine Color Yellow Pale Yellow Urine Appearance Clear Clear Clear Urine Odor None Comment pt reports voiding in toilet. Voiding Methods Urinal Toilet Data Completed and Pending Labs on day of discharge: Labs from last 24 hours 12/31/19 12/30/19 06:06 06:00 Sodium 137 Potassium 3.9 Chloride 100 Carbon Dioxide 29.8 Anion Gap 7.2 BUN 22 H Creatinine 1.64 H Estimated GFR/1.73 m2 43.67 Glucose 240 H Calcium 8.5 Magnesium 1.9 Ferritin 253 [facility] Medical History BPH associated with nocturia (Chronic 06/16/18) CKD (chronic kidney disease) (Chronic) COPD (chronic obstructive pulmonary disease) (Chronic) Diabetic retinopathy (Chronic) severe; laser RX--blind OD Essential hypertension (Chronic 08/05/13) Hypercholesterolemia (Chronic) Obesity (Chronic) 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 Maternal Uncle Cancer Social History Smoking/Tobacco Use Status: Former Tobacco Use Quit Date: 10/27/11 Second Hand Exposure: No Alcohol Intake: former Drug use: Never Substance use type: does not use Caregiver/Support person: No Household members: significant other Housing: house Communication Needs: None Do you need help understanding health information?: Never Pets and animals: Yes Pets and animals: cat(s) Sexually active: Yes Do you think of yourself as: straight/heterosexual Current gender identity: male What is your relationship status?: living with partner How often do you talk on the phone with friends or family?: three or more times per week How often do you get together with friends or relatives?: twice per week How often do you attend voodoo or adventism services?: decline to answer Do you belong to any clubs or organized social groups?: no Panel score (0-1 are the most socially isolated patients): 2 What type of physical activity do you participate in: walking Duration: < 15 minutes/day Frequency: daily Antonia/Yazdanism: None Special antonia needs: No Seatbelt use: always Helmet use: No Drive intox or ride w/intox local company flatbed truck driver: No Do you feel safe at home: Yes Do you feel safe in your relationship?: Yes
[2019-12-31 11:04] VITALS: BP 123/74; PULSE 70; RESP 20; TEMP 36.6; O2SAT 98
[2019-12-31 11:17] VITALS: PULSE 69
[2019-12-31 15:33] VITALS: BP 121/62; PULSE 68; RESP 17; TEMP 36.8; O2SAT 92
--- NOTE | 2019-12-31 16:15 | CMDISCH_ITS ---
- If Service Date Differs Date of service: 12/31/19 Time of Service: 16:15 LACE Index Scoring Tool - Questions: Length of Stay (in days): 2 Acuity (Admit via E.D.?): Yes Comorbidities: Diabetes w/o Complication, Chronic Pulmonary Disease, Liver or Renal Disease E.D. Visits: 2 - Answers: Total Score: 12 Risk of Readmission: High Risk Care Management Discharge Reason for Hospitalization: Abdominal Pain Discharge Plan: Vivek will be discharged home with no new services. He will follow up with his gastroenterology provider at [facility], his PCP and the discharge plan of care. Vivek will transport with Barbi via private vehicle. Patient/Family Education Needs: Discharge plan, limitations, follow up plan and Ask Me Three
--- NOTE | 2020-01-31 13:40 | W.CARDEVENT ---
Date of service: 01/31/20 Time of Service: 13:40 Cardiac Event Recorder Cardiac Event Note: This is a 30-day event recorder ordered for the indication of unspecified atrial fibrillation. ?The patient was in normal sinus rhythm for the majority of the recording. ?There were no episodes of atrial fibrillation ?Patient had occasional premature ventricular contractions. ?There were no pauses greater than 3 seconds and no evidence of high degree heart block.
== END 2019-12-31 12:09 | disposition home or self-care (01) | DRG 392 ==
LOC: ER 12-29 02:08 → MS 12-29 03:02
PROVIDERS: Internal Medicine; Admitting Provider Family Medicine; Emergency Provider Emergency Medicine; PCP Emergency Medicine; Visit Provider Family Medicine
DX: R19.09 Other intra-abdominal and pelvic swelling, mass and lump (principal); R59.0 Localized enlarged lymph nodes; E11.22 Type 2 diabetes mellitus with diabetic chronic kidney disease; N18.3 Chronic kidney disease, stage 3 (moderate); E11.40 Type 2 diabetes mellitus with diabetic neuropathy, unspecified; E11.319 Type 2 diabetes mellitus with unspecified diabetic retinopathy without macular edema; Z95.1 Presence of aortocoronary bypass graft; N40.1 Benign prostatic hyperplasia with lower urinary tract symptoms; R35.1 Nocturia; J44.9 Chronic obstructive pulmonary disease, unspecified; I12.9 Hypertensive chronic kidney disease with stage 1 through stage 4 chronic kidney disease, or unspecified chronic kidney disease; E78.00 Pure hypercholesterolemia, unspecified; E66.9 Obesity, unspecified; Z68.32 Body mass index [BMI] 32.0-32.9, adult; I48.0 Paroxysmal atrial fibrillation; E83.42 Hypomagnesemia
CPT/HCPCS: 36415; 43238; 80048; 80053; 80076; 83690; 93005; 93270; 96361; 96374; 96375; 96376; 99222; 99223; 99232; 99239; 99253; 99285; NC; 74176; 82728; 83540; 83550; 83605; 83735; 84484; 85025; 85610; 85730; 93010; A0425; A0426; J1644; J2405; J2765; J3010; J3475

== ENCOUNTER 2019-12-28 23:04 | Emergency (ER) | payer MEDICARE, SELFPAY ==
--- NOTE | 2019-12-29 01:19 | W.PM.HP.N ---
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 Maternal Uncle Cancer Social History Smoking/Tobacco Use Status: Former Tobacco Use Quit Date: 10/27/11 Second Hand Exposure: No Alcohol Intake: former Drug use: Never Substance use type: does not use Caregiver/Support person: No Household members: significant other Housing: house Communication Needs: None Do you need help understanding health information?: Never Pets and animals: Yes Pets and animals: cat(s) Sexually active: Yes Do you think of yourself as: straight/heterosexual Current gender identity: male What is your relationship status?: living with partner How often do you talk on the phone with friends or family?: three or more times per week How often do you get together with friends or relatives?: twice per week How often do you attend jehovah's witness or yazidi services?: decline to answer Do you belong to any clubs or organized social groups?: no Panel score (0-1 are the most socially isolated patients): 2 What type of physical activity do you participate in: walking Duration: < 15 minutes/day Frequency: daily Antonia/Confucianism: None Special antonia needs: No Seatbelt use: always Helmet use: No Drive intox or ride w/intox sweeper driver: No Do you feel safe at home: Yes Do you feel safe in your relationship?: Yes Meds Home Medications and Allergies Home Medications Medication Instructions Recorded Confirmed Type Aspirin 1 tab PO DAILY tab-cap 02/01/13 12/28/19 History blood-glucose meter [Prodigy] #1 kit 11/28/17 10/19/19 Rx lisinopril 5 mg tablet 5 mg PO DAILY #90 tab 12/16/18 12/28/19 Rx needle (disp) 21 G 21 gauge x 1 #90 ndl 01/26/19 10/19/19 Rx 1/2 glipizide 10 mg tablet 10 mg PO BID #180 tab 06/09/19 12/28/19 Rx ezetimibe 10 mg tablet 10 mg PO DAILY #90 tab 09/28/19 12/28/19 Rx metoprolol tartrate 50 mg tablet 50 mg PO BID #180 tab-cap 09/28/19 12/28/19 Rx sitagliptin 100 mg tablet 100 mg PO DAILY #90 tab 09/28/19 12/28/19 Rx omeprazole 20 mg capsule,delayed 20 mg PO DAILY #60 cap 11/16/19 12/28/19 Rx release blood sugar diagnostic #360 strip 11/29/19 Rx lancets 28 gauge #360 ea 11/29/19 Rx insulin glargine 100 unit/mL (3 80 unit SUBCUT DAILY #12 pen 12/23/19 12/28/19 Rx mL) subcutaneous pen Allergies Allergy/AdvReac Type Severity Reaction Status Date / Time famotidine Allergy Severe diarrhea Verified 12/28/19 23:19 metformin AdvReac Severe VOMITING/DI Verified 12/28/19 23:19 ZZINESS atorvastatin AdvReac Intermediate Verified 12/28/19 23:19 pravastatin AdvReac Intermediate myalgias Verified 12/28/19 23:19 simvastatin AdvReac Intermediate JOINT PAIN Verified 12/28/19 23:19 Results Labs Result diagrams: 12/29/19 05:35
== END 2019-12-28 23:10 ==
LOC: ER 12-29 13:51
PROVIDERS: PCP Emergency Medicine
DX: R69 Illness, unspecified (principal)

== ENCOUNTER 2020-01-19 01:31 | Outpatient (CLI) | payer MEDICARE, MEDICAID, SELFPAY ==
--- NOTE | 2020-01-19 07:37 | DI.US_ITS ---
APPROVED REPORT EXAM: Comprehensive 2D, Doppler, and color-flow Echocardiogram Patient Location: Out-Patient [place] Pusher: Sylvie Henrandez RDCS (AE) Indications: Lymphoma, Anthracycline Conclusion Normal left ventricular chamber size and wall thickness. There is mild global hypokinesis. Estimate d ejection fraction is 45 to 50% There is no chamber enlargement The aortic, tricuspid, pulmonic, and mitral valves are structurally normal. There is mild mitral reg urgitation Wall motion Left Ventricle The left ventricle is normal size. Left ventricular systolic function is mildly decreased. There is n ormal left ventricular wall thickness. There is mild global hypokinesis of the left ventricle. Transm itral Doppler flow pattern suggests impaired LV relaxation. Ventricular septum not well visualized in subcostal view. LVEF is 45-50%. Right Ventricle The right ventricle is normal size. The right ventricular systolic function is normal. Atria The left atrium size is normal. The right atrium size is normal. The interatrial septum is intact wit h no evidence for an atrial septal defect. Aortic Valve The aortic valve is normal in structure. Aortic valve is trileaflet. There is no aortic valvular sten osis. No aortic regurgitation is present. Mitral Valve There is mitral annular calcification. No evidence of mitral valve stenosis. Mild mitral regurgitatio n. Tricuspid Valve The tricuspid valve is normal in structure. There is no tricuspid valve stenosis. Trace tricuspid reg urgitation. Unable to assess PA pressure. Pulmonic Valve The pulmonary valve is normal in structure. There is no pulmonic valvular stenosis. There is no pulmo krystal valvular regurgitation. Great Vessels The aortic root is normal in size. The ascending aorta is normal in size. Aortic arch is normal in ca liber. IVC is normal in size and collapses >50% with inspiration. Pericardium There is no pericardial effusion. There is no pleural effusion. 2D Dimensions IVSD d PLAX 0.82 cm M: 0.6-1.2 LV Vol A2C d MOD 138.5 mL LVPW d PLAX 0.87 cm M: 0.6 - 1.2 LV Vol A4C d MOD 128.4 mL LVID d PLAX 4.69 cm M: 4.2 - 5.8 LA vol/ BSA A2C s A-L 22.8 mL/m2 LVDs 3.50 cm M: 2.5 - 4.0 LA vol/ BSA A4C s A-L 14.7 mL/m2 Ao Root d 3.29 cm M: 3.1 - 3.7 LA Vol/ BSA Biplane s A-L 20.1 mL/m2 Ao Asc Diam d 3.51 cm M: 2.6 - 3.4 LA Area A4C s MOD 13.02 cm2 LV EF Teichholz 48.6 % LA Area A2C s MOD 17.86 cm2 LVEF (Harris's) 42.36 % M: 52 - 72 LV EF A4C MOD 44.1 % LV Volume 96.77 mL M: 62 - 150 LV EF A2C MOD 42.0 % LV Volume Index 43.59 mL/m2 M: 34 - 74 LV EF Biplane MOD 42.4 % LV Vol Biplane MOD 133.6 mL FS 24.45 % LV Diastology MV E' medial 0.055 (>0.07 m/s) E/A Ratio 0.8 LV E/e MED 11.70 (<14) MV E Vmax 0.64 (0.4-1.3 m/s) MV E' lateral 0.085 (>0.1 m/s) MV A Vmax 0.85 (0.4-1.3 m/s) LV E/e LAT 7.55 (<14) MV E/A Ratio 0.74 MV E/E' medial 11.73 MV E/E' lateral 7.56 Aortic Valve LVOT Area 3.13 cm2 AoV Area Vmax 2.85 cm2 LVOT Vmax 0.87 m/s AoV Area/ BSA (Vmax) 1.28 cm2/m2 LVOT Mean Juan. 0.53 m/s CARMELA Mean Juan. 2.36 cm2 LVOT Peak Grad 3.0 mmHg CARMELA Mean Juan. Index 1.06 cm2/m2 LVOT Mean Grad 1.4 mmHg LVOT VTI 0.211 m LVOT Diam s 1.95 cm (M/F) 1.5-2.5 AoV Vmax 0.95 (0.5-1.3 m/s) Velocity Ratio 0.91 AoV Mean Juan. 0.70 m/s AoV Peak Grad 3.6 mmHg LVOT SV 65.91 mL AoV Mean Grad 2.1 (<5 mmHg) AoV VTI 0.206 (0.18-0.25 m) AoV Area VTI 3.20 (2.5-4.5 cm2) AoV Area/ BSA (VTI) 1.44 cm/m2 Mitral Valve MV DT 232 (160-240 msec) MV PHT 67 msec MV Area PHT 3.27 cm2 Pulmonary Valve PV Vmax 0.96 (0.5-1.5 m/s) RVOT Peak Gr. 1.22 mmHg PV Peak Grad 3.7 mmHg RVOT Mean Gr. 0.60 mmHg PV Mean Grad 1.9 mmHg RVOT VTI 0.118 m PV VTI 0.190 m RVOT Vmax 0.55 m/s
== END 2020-01-19 01:51 ==
PROVIDERS: PCP Emergency Medicine; Visit Provider Internal Medicine Hematology & Oncology
DX: C85.10 Unspecified B-cell lymphoma, unspecified site (principal); I42.7 Cardiomyopathy due to drug and external agent; Z92.21 Personal history of antineoplastic chemotherapy; I25.10 Atherosclerotic heart disease of native coronary artery without angina pectoris; I48.0 Paroxysmal atrial fibrillation; I34.0 Nonrheumatic mitral (valve) insufficiency
CPT/HCPCS: 93306

== ENCOUNTER 2020-01-31 13:40 | Outpatient (CLI) | payer MEDICARE, SELFPAY | END 2020-01-31 14:00 | PROVIDERS: PCP Emergency Medicine; Visit Provider Internal Medicine Cardiovascular Disease | DX: I48.91 Unspecified atrial fibrillation (principal); I49.3 Ventricular premature depolarization | CPT/HCPCS: 93228 ==

== ENCOUNTER 2020-02-16 01:12 | Outpatient (RCR) | payer MEDICARE, MEDICAID, SELFPAY ==
[2020-01-27] MEDS: Normal Saline Flush 10 ML SYR IVP (07:15)
[2020-01-27 07:31] LABS: Absolute Basophil Count 0.03 k/cumm (0.0-0.2); Absolute Eosinophil Count 0.35 k/cumm (0.0-0.7); Absolute Lymphocyte Count 1.75 k/cumm (1.2-3.4); Absolute Monocyte Count 0.94 k/cumm (0.11-0.7); Basophils % 0.3; HCT 47.2 % (40.0-50.0); HGB 15.8 g/dL (13.5-17.5); Immature Grans % 0.9 %; Lymphocytes % 15.1; Mean Corp. HGB Concentration 33.5 g/dL (32.0-36.0); Mean Corpuscular Hemoglobin 27.2 pg (27.0-33.0); Mean Corpuscular Volume 81.4 fL (80-95); Mean Platelet Volume 10.6 fL (8.0-11.0); Monocytes % 8.1; Neutrophils % 72.6; Platelet Count 220 x1000/uL (130-400); RBC Distribution Width 13.6 % (11.8-14.1); White Blood Cell Count 11.57 k/cumm (4.4-10.8)
[2020-01-27 07:48] LABS: ALT 23 U/L (16-63); AST 18 U/L (15-37); Albumin 3.7 g/dL (3.4-5.0); Alkaline Phosphatase 78 U/L (46-116); Anion Gap 7.8 mmol/L (3-11); BUN 30 mg/dL (7-18); Bilirubin, Total 0.5 mg/dL (0.2-1.0); CO2 26.2 mmol/L (21.0-32.0); CREATININE 1.86 mg/dL (0.70-1.30); Calcium 8.9 mg/dL (8.5-10.1); Chloride 98 mmol/L (98-107); Estimated GFR 37.77 (mL/min/1.73m2); Glucose 297 mg/dL (74-106); LDH 316 U/L (85-227); Potassium 4.7 mmol/L (3.5-5.1); Sodium 132 mmol/L (136-145); Total Protein 7.3 g/dL (6.4-8.2)
[2020-02-04] MEDS: Heparin 500 UNITS/5 ML SYRINGE IV (10:18)
[2020-02-04] MEDS: Normal Saline Flush 10 ML SYR IVP (10:18)
[2020-02-04 10:29] LABS: HCT 45.1 % (40.0-50.0); HGB 15.4 g/dL (13.5-17.5); Mean Corp. HGB Concentration 34.1 g/dL (32.0-36.0); Mean Corpuscular Hemoglobin 27.7 pg (27.0-33.0); Mean Corpuscular Volume 81.1 fL (80-95); Platelet Count 171 x1000/uL (130-400); RBC 5.56 m/cumm (4.50-6.00); RBC Distribution Width 13.6 % (11.8-14.1); White Blood Cell Count 8.04 k/cumm (4.4-10.8)
[2020-02-04 10:42] LABS: ALT 18 U/L (16-63); AST 13 U/L (15-37); Albumin 3.5 g/dL (3.4-5.0); Alkaline Phosphatase 118 U/L (46-116); Anion Gap 7.2 mmol/L (3-11); BUN 38 mg/dL (7-18); Bilirubin, Total 0.4 mg/dL (0.2-1.0); CO2 26.8 mmol/L (21.0-32.0); CREATININE 1.69 mg/dL (0.70-1.30); Calcium 9.1 mg/dL (8.5-10.1); Chloride 101 mmol/L (98-107); Estimated GFR 42.19 (mL/min/1.73m2); Glucose 182 mg/dL (74-106); Potassium 4.9 mmol/L (3.5-5.1); Sodium 135 mmol/L (136-145); Total Protein 7.1 g/dL (6.4-8.2)
[2020-02-04 10:52] LABS: Absolute Neutrophil Count 5.31 k/cumm (1.2-6.7)
[2020-02-04 10:53] LABS: Absolute Eosinophil Count 0.32 k/cumm (0.0-0.7); Absolute Lymphocyte Count 2.09 k/cumm (1.2-3.4); Absolute Monocyte Count 0.32 k/cumm (0.11-0.7); Atypical Lymphocytes % 3; Diff Comment Manual Differential; RBC Morphology Normal
[2020-02-07 10:16] LABS: Abs Immature Grans 0.68 k/cumm (0.0-0.09); HCT 45.6 % (40.0-50.0); HGB 15.4 g/dL (13.5-17.5); Mean Corp. HGB Concentration 33.8 g/dL (32.0-36.0); Mean Corpuscular Hemoglobin 27.7 pg (27.0-33.0); Mean Platelet Volume 10.5 fL (8.0-11.0); Platelet Count 185 x1000/uL (130-400); RBC 5.56 m/cumm (4.50-6.00); RBC Distribution Width 13.9 % (11.8-14.1); White Blood Cell Count 8.56 k/cumm (4.4-10.8)
[2020-02-07 10:30] LABS: ALT 23 U/L (16-63); AST 14 U/L (15-37); Albumin 3.5 g/dL (3.4-5.0); Alkaline Phosphatase 110 U/L (46-116); Anion Gap 5.5 mmol/L (3-11); BUN 38 mg/dL (7-18); Bilirubin, Total 0.3 mg/dL (0.2-1.0); CO2 27.5 mmol/L (21.0-32.0); CREATININE 2.14 mg/dL (0.70-1.30); Calcium 8.8 mg/dL (8.5-10.1); Chloride 99 mmol/L (98-107); Estimated GFR 32.13 (mL/min/1.73m2); Glucose 315 mg/dL (74-106); Sodium 132 mmol/L (136-145); Total Protein 7.2 g/dL (6.4-8.2)
[2020-02-07 10:49] LABS: Absolute Basophil Count 0.09 k/cumm (0.0-0.2); Absolute Eosinophil Count 0.26 k/cumm (0.0-0.7); Absolute Lymphocyte Count 1.28 k/cumm (1.2-3.4); Absolute Monocyte Count 1.37 k/cumm (0.11-0.7); Absolute Neutrophil Count 5.05 k/cumm (1.2-6.7); Atypical Lymphocytes % 1
[2020-02-07 10:50] LABS: Diff Comment Manual Differential; RBC Morphology Normal
[2020-02-07] MEDS: Heparin 500 UNITS/5 ML SYRINGE IV (11:10)
[2020-02-07] MEDS: Normal Saline Flush 10 ML SYR IVP (11:10)
[2020-02-09] MEDS: Normal Saline Flush 10 ML SYR IVP (11:10)
[2020-02-09 11:11] LABS: Abs Immature Grans 1.41 k/cumm (0.0-0.09); HCT 45.6 % (40.0-50.0); HGB 15.3 g/dL (13.5-17.5); Mean Corp. HGB Concentration 33.6 g/dL (32.0-36.0); Mean Corpuscular Hemoglobin 27.4 pg (27.0-33.0); Mean Corpuscular Volume 81.7 fL (80-95); Mean Platelet Volume 10.4 fL (8.0-11.0); Platelet Count 201 x1000/uL (130-400); RBC 5.58 m/cumm (4.50-6.00); White Blood Cell Count 12.45 k/cumm (4.4-10.8)
[2020-02-09] MEDS: Heparin 500 UNITS/5 ML SYRINGE IV (11:12)
[2020-02-09 11:22] LABS: ALT 25 U/L (16-63); AST 14 U/L (15-37); Albumin 3.5 g/dL (3.4-5.0); Alkaline Phosphatase 108 U/L (46-116); Anion Gap 8.1 mmol/L (3-11); BUN 37 mg/dL (7-18); Bilirubin, Total 0.3 mg/dL (0.2-1.0); CO2 26.9 mmol/L (21.0-32.0); CREATININE 1.99 mg/dL (0.70-1.30); Calcium 8.9 mg/dL (8.5-10.1); Chloride 99 mmol/L (98-107); Estimated GFR 34.94 (mL/min/1.73m2); Glucose 318 mg/dL (74-106); LDH 157 U/L (85-227); Potassium 4.9 mmol/L (3.5-5.1); Sodium 134 mmol/L (136-145); Total Protein 7.2 g/dL (6.4-8.2)
[2020-02-09 11:41] LABS: Absolute Basophil Count 0.12 k/cumm (0.0-0.2); Absolute Eosinophil Count 0.12 k/cumm (0.0-0.7); Absolute Lymphocyte Count 1.87 k/cumm (1.2-3.4); Absolute Monocyte Count 1.12 k/cumm (0.11-0.7); Absolute Neutrophil Count 8.34 k/cumm (1.2-6.7); Atypical Lymphocytes % 1
[2020-02-09 11:42] LABS: Diff Comment Manual Differential; Polychromasia Present
[2020-02-09 14:19] LABS: Uric Acid 4.7 mg/dL (3.5-7.2)
[2020-02-16 08:12] LABS: Absolute Eosinophil Count 0.08 k/cumm (0.0-0.7); Absolute Lymphocyte Count 1.43 k/cumm (1.2-3.4); Absolute Monocyte Count 1.37 k/cumm (0.11-0.7); Basophils % 0.5; Eosinophils % 0.7; HCT 44.5 % (40.0-50.0); Immature Grans % 2.7 %; Lymphocytes % 13.1; Mean Corp. HGB Concentration 33.7 g/dL (32.0-36.0); Mean Corpuscular Hemoglobin 27.4 pg (27.0-33.0); Mean Corpuscular Volume 81.2 fL (80-95); Mean Platelet Volume 10.7 fL (8.0-11.0); Monocytes % 12.5; Neutrophils % 70.5; Platelet Count 265 x1000/uL (130-400); RBC 5.48 m/cumm (4.50-6.00); RBC Distribution Width 14.5 % (11.8-14.1); White Blood Cell Count 10.93 k/cumm (4.4-10.8)
[2020-02-16 08:13] LABS: Absolute Basophil Count 0.05 k/cumm (0.0-0.2); Absolute Neutrophil Count 7.71 k/cumm (1.2-6.7)
[2020-02-16 08:27] LABS: ALT 24 U/L (16-63); AST 16 U/L (15-37); Albumin 3.4 g/dL (3.4-5.0); Alkaline Phosphatase 77 U/L (46-116); Anion Gap 7.8 mmol/L (3-11); BUN 31 mg/dL (7-18); Bilirubin, Total 0.3 mg/dL (0.2-1.0); CO2 26.2 mmol/L (21.0-32.0); CREATININE 1.71 mg/dL (0.70-1.30); Calcium 8.4 mg/dL (8.5-10.1); Chloride 103 mmol/L (98-107); Estimated GFR 41.62 (mL/min/1.73m2); Glucose 184 mg/dL (74-106); LDH 140 U/L (85-227); Potassium 4.3 mmol/L (3.5-5.1); Sodium 137 mmol/L (136-145); Uric Acid 6.3 mg/dL (3.5-7.2)
[2020-02-16] MEDS: Normal Saline Flush 10 ML SYR IVP (08:31)
== END 2020-02-24 23:59 | disposition home or self-care (01) ==
LOC: INF 01:12
PROVIDERS: PCP Emergency Medicine; Visit Provider Internal Medicine Hematology & Oncology
DX: C83.30 Diffuse large B-cell lymphoma, unspecified site (principal); Z95.1 Presence of aortocoronary bypass graft; F17.211 Nicotine dependence, cigarettes, in remission; E11.3513 Type 2 diabetes mellitus with proliferative diabetic retinopathy with macular edema, bilateral; Z79.4 Long term (current) use of insulin; Z45.2 Encounter for adjustment and management of vascular access device
CPT/HCPCS: 36591; 80053; 86850; 86900; 86901; 83615; 84550; 85025

== ENCOUNTER 2020-03-22 01:45 | Outpatient (RCR) | payer MEDICARE, MEDICAID, SELFPAY ==
[2020-03-09] MEDS: Heparin 500 UNITS/5 ML SYRINGE IV (11:33)
[2020-03-09] MEDS: Normal Saline Flush 10 ML SYR IVP (11:33)
[2020-03-09 11:40] LABS: Abs Immature Grans 0.13 k/cumm (0.0-0.09); Absolute Basophil Count 0.04 k/cumm (0.0-0.2); Absolute Eosinophil Count 0.34 k/cumm (0.0-0.7); Absolute Lymphocyte Count 1.43 k/cumm (1.2-3.4); Absolute Monocyte Count 0.74 k/cumm (0.11-0.7); Absolute Neutrophil Count 10.33 k/cumm (1.2-6.7); Basophils % 0.3; Eosinophils % 2.6; HCT 43.3 % (40.0-50.0); HGB 14.4 g/dL (13.5-17.5); Mean Corp. HGB Concentration 33.3 g/dL (32.0-36.0); Mean Corpuscular Hemoglobin 27.7 pg (27.0-33.0); Mean Corpuscular Volume 83.3 fL (80-95); Mean Platelet Volume 11.2 fL (8.0-11.0); Monocytes % 5.7; Platelet Count 187 x1000/uL (130-400); RBC Distribution Width 15.8 % (11.8-14.1); White Blood Cell Count 13.01 k/cumm (4.4-10.8)
[2020-03-09 11:56] LABS: ALT 25 U/L (16-63); AST 16 U/L (15-37); Albumin 3.4 g/dL (3.4-5.0); Alkaline Phosphatase 161 U/L (46-116); Anion Gap 5.6 mmol/L (3-11); BUN 27 mg/dL (7-18); Bilirubin, Total 0.5 mg/dL (0.2-1.0); CO2 27.4 mmol/L (21.0-32.0); CREATININE 1.42 mg/dL (0.70-1.30); Calcium 8.8 mg/dL (8.5-10.1); Chloride 102 mmol/L (98-107); Estimated GFR 51.57 (mL/min/1.73m2); Glucose 146 mg/dL (74-106); LDH 161 U/L (85-227); Potassium 4.6 mmol/L (3.5-5.1); Sodium 135 mmol/L (136-145); Total Protein 6.8 g/dL (6.4-8.2)
[2020-03-09 12:02] LABS: Diff Comment Agrees w/ Instrument; Neutrophils % 79.4; RBC Morphology Normal
[2020-03-22 08:08] LABS: Abs Immature Grans 0.26 k/cumm (0.0-0.09); HCT 41.7 % (40.0-50.0); HGB 14.3 g/dL (13.5-17.5); Mean Corp. HGB Concentration 34.3 g/dL (32.0-36.0); Mean Corpuscular Hemoglobin 28.9 pg (27.0-33.0); Mean Corpuscular Volume 84.4 fL (80-95); Mean Platelet Volume 10.3 fL (8.0-11.0); Platelet Count 253 x1000/uL (130-400); RBC 4.94 m/cumm (4.50-6.00); White Blood Cell Count 8.07 k/cumm (4.4-10.8)
[2020-03-22] MEDS: Normal Saline Flush 10 ML SYR IVP (08:11)
[2020-03-22 08:18] LABS: ALT 23 U/L (16-63); AST 19 U/L (15-37); Albumin 3.4 g/dL (3.4-5.0); Alkaline Phosphatase 86 U/L (46-116); Anion Gap 4.3 mmol/L (3-11); BUN 30 mg/dL (7-18); Bilirubin, Total 0.4 mg/dL (0.2-1.0); CO2 28.7 mmol/L (21.0-32.0); CREATININE 1.56 mg/dL (0.70-1.30); Calcium 8.8 mg/dL (8.5-10.1); Chloride 103 mmol/L (98-107); Estimated GFR 46.27 (mL/min/1.73m2); Glucose 198 mg/dL (74-106); LDH 163 U/L (85-227); Potassium 4.5 mmol/L (3.5-5.1); Sodium 136 mmol/L (136-145); Total Protein 6.8 g/dL (6.4-8.2)
[2020-03-22 08:23] LABS: Absolute Eosinophil Count 0.08 k/cumm (0.0-0.7); Absolute Lymphocyte Count 1.13 k/cumm (1.2-3.4); Absolute Monocyte Count 1.05 k/cumm (0.11-0.7); Absolute Neutrophil Count 5.65 k/cumm (1.2-6.7); Atypical Lymphocytes % 2; Diff Comment Manual Differential; RBC Morphology Normal
== END 2020-03-26 23:59 | disposition home or self-care (01) ==
LOC: INF 01:45
PROVIDERS: PCP Emergency Medicine; Visit Provider Internal Medicine Hematology & Oncology
DX: C83.30 Diffuse large B-cell lymphoma, unspecified site (principal); Z45.2 Encounter for adjustment and management of vascular access device
CPT/HCPCS: 36591; 80053; 83615; 85025

== ENCOUNTER 2020-04-12 02:54 | Outpatient (RCR) | payer MEDICARE, MEDICAID, SELFPAY ==
[2020-04-12] MEDS: Normal Saline Flush 10 ML SYR IVP (07:42)
[2020-04-12 07:52] LABS: Abs Immature Grans 0.24 k/cumm (0.0-0.09); HCT 41.8 % (40.0-50.0); HGB 14.2 g/dL (13.5-17.5); Mean Corpuscular Hemoglobin 28.9 pg (27.0-33.0); Mean Platelet Volume 11.3 fL (8.0-11.0); Platelet Count 195 x1000/uL (130-400); RBC 4.92 m/cumm (4.50-6.00); RBC Distribution Width 17.7 % (11.8-14.1); White Blood Cell Count 10.56 k/cumm (4.4-10.8)
[2020-04-12 08:05] LABS: ALT 20 U/L (16-63); AST 14 U/L (15-37); Albumin 3.5 g/dL (3.4-5.0); Alkaline Phosphatase 92 U/L (46-116); BUN 34 mg/dL (7-18); Bilirubin, Total 0.6 mg/dL (0.2-1.0); CREATININE 1.84 mg/dL (0.70-1.30); Calcium 8.7 mg/dL (8.5-10.1); Chloride 102 mmol/L (98-107); Estimated GFR 38.24 (mL/min/1.73m2); Glucose 189 mg/dL (74-106); LDH 137 U/L (85-227); Potassium 4.6 mmol/L (3.5-5.1); Sodium 136 mmol/L (136-145); Total Protein 6.8 g/dL (6.4-8.2); Uric Acid 7.4 mg/dL (3.5-7.2)
[2020-04-12 08:43] LABS: Absolute Eosinophil Count 0.11 k/cumm (0.0-0.7); Absolute Lymphocyte Count 0.95 k/cumm (1.2-3.4); Absolute Monocyte Count 1.37 k/cumm (0.11-0.7); Absolute Neutrophil Count 7.92 k/cumm (1.2-6.7)
[2020-04-12 08:44] LABS: Diff Comment Manual Differential; Promyelocytes % 0 %
[2020-04-12 08:45] LABS: Poikilocytes 1+
== END 2020-04-25 23:59 | disposition home or self-care (01) ==
LOC: INF 02:54
PROVIDERS: PCP Emergency Medicine; Visit Provider Internal Medicine Hematology & Oncology
DX: C83.30 Diffuse large B-cell lymphoma, unspecified site (principal); Z45.2 Encounter for adjustment and management of vascular access device
CPT/HCPCS: 36591; 80053; 83615; 84550; 85025

== ENCOUNTER 2020-05-10 00:58 | Outpatient (RCR) | payer MEDICARE, MEDICAID, SELFPAY ==
[2020-05-03] MEDS: Normal Saline Flush 10 ML SYR IVP (07:45)
[2020-05-03 07:57] LABS: HCT 41.5 % (40.0-50.0); HGB 14.4 g/dL (13.5-17.5); Mean Corp. HGB Concentration 34.7 g/dL (32.0-36.0); Mean Corpuscular Hemoglobin 29.4 pg (27.0-33.0); Mean Corpuscular Volume 84.9 fL (80-95); Mean Platelet Volume 10.3 fL (8.0-11.0); Platelet Count 234 x1000/uL (130-400); RBC 4.89 m/cumm (4.50-6.00); RBC Distribution Width 16.2 % (11.8-14.1); White Blood Cell Count 11.19 k/cumm (4.4-10.8)
[2020-05-03 08:12] LABS: ALT 15 U/L (16-63); AST 14 U/L (15-37); Albumin 3.2 g/dL (3.4-5.0); Alkaline Phosphatase 95 U/L (46-116); Anion Gap 8.8 mmol/L (3-11); BUN 29 mg/dL (7-18); Bilirubin, Total 0.7 mg/dL (0.2-1.0); CO2 25.2 mmol/L (21.0-32.0); CREATININE 2.13 mg/dL (0.70-1.30); Calcium 8.9 mg/dL (8.5-10.1); Chloride 97 mmol/L (98-107); Glucose 237 mg/dL (74-106); LDH 163 U/L (85-227); Potassium 4.5 mmol/L (3.5-5.1); Sodium 131 mmol/L (136-145); Total Protein 6.9 g/dL (6.4-8.2)
[2020-05-03 08:18] LABS: Hemoglobin A1C 8.2 % (3.8-5.6)
[2020-05-03 08:23] LABS: Diff Comment Manual Differential
[2020-05-03 08:25] LABS: RBC Morphology Normal
[2020-05-03 08:43] LABS: Absolute Neutrophil Count 7.61 k/cumm (1.2-6.7)
[2020-05-03 08:45] LABS: Absolute Lymphocyte Count 2.01 k/cumm (1.2-3.4); Atypical Lymphocytes % 4
[2020-05-03 08:46] LABS: Absolute Monocyte Count 1.34 k/cumm (0.11-0.7)
[2020-05-03 08:49] LABS: Absolute Eosinophil Count 0.22 k/cumm (0.0-0.7)
[2020-05-10] MEDS: Normal Saline Flush 10 ML SYR IVP (07:33)
[2020-05-10 07:50] LABS: Abs Immature Grans 0.27 k/cumm (0.0-0.09); HCT 39.2 % (40.0-50.0); HGB 13.6 g/dL (13.5-17.5); Mean Corp. HGB Concentration 34.7 g/dL (32.0-36.0); Mean Corpuscular Hemoglobin 29.3 pg (27.0-33.0); Mean Corpuscular Volume 84.5 fL (80-95); Platelet Count 328 x1000/uL (130-400); RBC 4.64 m/cumm (4.50-6.00); White Blood Cell Count 12.71 k/cumm (4.4-10.8)
[2020-05-10 08:05] LABS: ALT 17 U/L (16-63); AST 16 U/L (15-37); Albumin 2.9 g/dL (3.4-5.0); Alkaline Phosphatase 79 U/L (46-116); Anion Gap 9.8 mmol/L (3-11); BUN 25 mg/dL (7-18); Bilirubin, Total 0.5 mg/dL (0.2-1.0); CO2 24.2 mmol/L (21.0-32.0); Calcium 8.9 mg/dL (8.5-10.1); Chloride 97 mmol/L (98-107); Estimated GFR 34.74 (mL/min/1.73m2); Glucose 158 mg/dL (74-106); Potassium 4.1 mmol/L (3.5-5.1); Sodium 131 mmol/L (136-145); Total Protein 6.6 g/dL (6.4-8.2)
[2020-05-10 08:17] LABS: Diff Comment Manual Differential
[2020-05-10 08:18] LABS: Absolute Eosinophil Count 0.25 k/cumm (0.0-0.7); Absolute Monocyte Count 2.03 k/cumm (0.11-0.7); Absolute Neutrophil Count 8.77 k/cumm (1.2-6.7); Promyelocytes % 0 %
[2020-05-10 08:19] LABS: RBC Morphology Normal
== END 2020-05-26 23:59 | disposition home or self-care (01) ==
LOC: INF 00:58
PROVIDERS: Internal Medicine Hematology & Oncology; PCP Emergency Medicine; Visit Provider Internal Medicine Hematology & Oncology
DX: C83.30 Diffuse large B-cell lymphoma, unspecified site (principal); Z45.2 Encounter for adjustment and management of vascular access device; Z95.1 Presence of aortocoronary bypass graft; F17.211 Nicotine dependence, cigarettes, in remission; E11.3513 Type 2 diabetes mellitus with proliferative diabetic retinopathy with macular edema, bilateral; Z79.1 Long term (current) use of non-steroidal anti-inflammatories (NSAID)
CPT/HCPCS: 36591; 80053; 83036; 83615; 85025

== ENCOUNTER 2020-05-19 14:33 | Emergency (ER) | payer MEDICARE, MEDICAID, SELFPAY ==
[2020-05-19] VITALS (12 sets, daily range): BP systolic 74–118; BP diastolic 54–78; PULSE 81–94; RESP 17–20; TEMP 36.5; O2SAT 97–100
--- NOTE | 2020-05-19 15:00 | RT.EKG_ITS ---
APPROVED REPORT Exam: Resting ECG Patient Location: E HR:87 bpm ECG Measurements Heart Rate 87 AXIS ID [id number] P -11 QRSd 85 QRS 8 QT 352 T 98 QTc 423 <Conclusion> Sinus rhythm...normal P axis, V-rate 87 Anterior infarct, old.
--- NOTE | 2020-05-19 15:03 | ED.GENADUL_ITS ---
Discharge Plan Disposition Patient Disposition: HOME Condition: Stable Discharge Details Chief Complaint: Dizzy/Sync Clinical Impression: Hypovolemia, Orthostasis Primary Care Provider: Travis Castro ED Provider: Larry Holly Home Meds and New Rx's Prescriptions: Continued ASPIRIN 81 MG tablet 1 tab PO DAILY RF: 0 glipizide [Glucotrol] 10 mg tablet 10 mg PO BID Qty: 180 RF: 4 ezetimibe [Zetia] 10 mg tablet 10 mg PO DAILY Qty: 90 RF: 3 Januvia 100 mg tablet 100 mg PO DAILY Qty: 90 RF: 3 omeprazole 20 mg capsule,delayed release(DR/EC) 20 mg PO DAILY Qty: 60 RF: 6 Basaglar KwikPen U-100 Insulin 100 unit/mL (3 mL) insulin pen 80 unit subcut DAILY Qty: 12 RF: 12 acyclovir 400 mg tablet 400 mg PO BID RF: 0 levofloxacin 750 mg tablet 750 mg PO DAILY RF: 0 Changed metoprolol tartrate 50 mg tablet 50 mg PO QDAY Qty: 180 RF: 3 Discontinued lisinopril 5 mg tablet 5 mg PO DAILY Qty: 90 RF: 4 No Action (DME) blood-glucose meter [ContentRealtime Autocode Meter] 1 EACH kit 1 ea Miscellaneous QID Qty: 1 RF: 0 (DME) blood sugar diagnostic [Blood Glucose Test] Strip 1 ea Miscellaneous QID Qty: 360 RF: 3 (DME) lancets [Prodigy Lancets] 28 gauge misc 1 ea Miscellaneous QID Qty: 360 RF: 4 (DME) BD Regular Bevel Cushing 21 gauge x 1 1/2 needle 1 ea Miscellaneous DAILY Qty: 90 RF: 12 ciprofloxacin HCl 500 mg tablet 500 mg PO BID RF: 0 Discharge Instructions Additional Instructions: Cardiology has recommended that you stop taking your lisinopril and decrease the metoprolol from twice a day to 50 mg once daily. Continue your regular medications including prophylactic antibiotics. I have ordered an outpatient echocardiogram for you to be performed this week. Return if you develop a fever, worsening lightheadedness, or any other acute concerns. Medical Decision Making 54-year-old male presents from home with concern for persistent hypotension that has begun since starting a cardiotoxic chemotherapy regimen for diffuse large B- cell lymphoma. He has had blood pressures as low as 60s systolic. He did have an echocardiogram at [facility] on April 21 which showed an LVEF of normal size and global systolic function, LVEF 58%. Strain mildly decreased with GLS -13%. There was note of hypokinesis of basal inferoseptal and mid inferior wall. Patient arrives with blood pressure 91/58, he is pleasant, interactive, no acute distress. While lying his blood pressure 94 systolic, with standing it drops approximately 20 points to 74 systolic but the patient remains asymptomatic. Patient given small fluid bolus, screening laboratories obtained. ANC is 0.09 with a white blood cell count of 0.7, hematocrit 31.5, platelets 85. Sodium 129, potassium 4.2, BUN 33, creatinine 1.8. Magnesium slightly low at 1.5 and albumin is low at 2.7. I discussed the case with both cardiology and hematology services from [facility]. Cardiology recommends continuing with the discontinuation of lisinopril that was started today by Dr. Castro, they also recommend decreasing metoprolol to 50 mg once daily. They have asked that I obtain an outpatient echocardiogram and they will see the patient in follow-up in clinic in the short-term. Patient's presentation & laboratories discussed with oncology, who will continue to follow. Be aware of the patient's recommendations from cardiology team discontinue lisinopril and decrease metoprolol to 50 mg once daily. Lab Data Lab results reviewed: Yes I reviewed the patient's lab results. Labs: Laboratory Results - last 24 hr 05/19/20 05/19/20 15:30 15:30 WBC 0.71 L* RBC 3.67 L Hgb 10.7 L Hct 31.5 L MCV 85.8 MCH 29.2 MCHC 34.0 RDW 13.1 Plt Count 85 L D MPV 10.7 Immature Gran % 0.0 Neutrophils % 8.0 Band Neutrophils % 4.0 Lymphocytes % 48.0 Atypical Lymphs % 2 Monocytes % 24.0 Eosinophils % 6.0 Basophils % 8.0 Absolute Neutrophils 0.09 L* Absolute Lymphocytes 0.36 L Absolute Monocytes 0.17 Absolute Eosinophils 0.04 Absolute Basophils 0.06 Differential Comment Manual differential RBC Morphology Normal Sodium 129 L Potassium 4.2 Chloride 97 L Carbon Dioxide 22.2 Anion Gap 9.8 BUN 33 H Creatinine 1.89 H Estimated GFR/1.73 m2 37.08 Glucose 194 H Calcium 8.3 L Magnesium 1.5 L Total Bilirubin 0.4 AST 11 L ALT 14 L Alkaline Phosphatase 86 Troponin I < 0.05 Total Protein 5.9 L Albumin 2.7 L HPI General Mode of arrival: ambulatory . Date/Time Provider Initiated Documentation: 05/19/20 14:40 . Limitations to Documentation: no limitations . Information obtained by: patient . History of Present Illness 54 year old M presents to the emergency department with the chief complaint of Hypotension since being on chemotherapy, described as moderate, Patient started experiencing this week(s) and it has been intermittent. Rest improves symptom(s), Movement worsens symptoms . Patient notes denies chest pain, cough and syncope. Patient did receive the following treatments prior to arrival, other (P.o. fluids) Related Data Home Medications Medication Instructions Recorded Confirmed Aspirin 1 tab PO DAILY tab-cap 02/01/13 05/19/20 blood-glucose meter [Prodigy #1 kit 11/28/17 04/25/20 Autocode Meter] glipizide 10 mg tablet 10 mg PO BID #180 tab 06/09/19 05/19/20 ezetimibe 10 mg tablet 10 mg PO DAILY #90 tab 09/28/19 05/19/20 sitagliptin 100 mg tablet 100 mg PO DAILY #90 tab 09/28/19 05/19/20 omeprazole 20 mg capsule,delayed 20 mg PO DAILY #60 cap 11/16/19 05/19/20 release blood sugar diagnostic #360 strip 11/29/19 04/25/20 lancets 28 gauge #360 ea 11/29/19 04/25/20 insulin glargine 100 unit/mL (3 80 unit SUBCUT DAILY #12 pen 12/23/19 05/19/20 mL) subcutaneous pen needle (disp) 21 G 21 gauge x 1 #90 ndl 02/02/20 04/25/20 1/2 acyclovir 400 mg PO BID 05/19/20 05/19/20 ciprofloxacin HCl 500 mg PO BID 05/19/20 05/19/20 levofloxacin 750 mg PO DAILY 05/19/20 05/19/20 metoprolol tartrate 50 mg PO QDAY #180 tab-cap 05/19/20 05/19/20 Previous Rx's Medication Instructions Recorded blood-glucose meter [Prodigy #1 kit 11/28/17 Autocode Meter] glipizide 10 mg tablet 10 mg PO BID #180 tab 06/09/19 ezetimibe 10 mg tablet 10 mg PO DAILY #90 tab 09/28/19 sitagliptin 100 mg tablet 100 mg PO DAILY #90 tab 09/28/19 omeprazole 20 mg capsule,delayed 20 mg PO DAILY #60 cap 11/16/19 release blood sugar diagnostic #360 strip 11/29/19 lancets 28 gauge #360 ea 11/29/19 insulin glargine 100 unit/mL (3 80 unit SUBCUT DAILY #12 pen 12/23/19 mL) subcutaneous pen needle (disp) 21 G 21 gauge x 1 #90 ndl 02/02/20 1/2 metoprolol tartrate 50 mg PO QDAY #180 tab-cap 05/19/20 Allergies Allergy/AdvReac Type Severity Reaction Status Date / Time famotidine AdvReac Severe diarrhea Verified 05/19/20 14:55 metformin AdvReac Severe VOMITING/DI Verified 05/19/20 14:55 ZZINESS atorvastatin AdvReac Intermediate Verified 05/19/20 14:55 pravastatin AdvReac Intermediate myalgias Verified 05/19/20 14:55 simvastatin AdvReac Intermediate JOINT PAIN Verified 05/19/20 14:55 General Stated Complaint: Dizzy/Sync ASHKAN: 3 Review of Systems Narrative: 6 systems reviewed and otherwise negative. 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 Maternal Uncle Cancer Social History Smoking/Tobacco Use Status: Former Tobacco Use Quit Date: 10/27/11 Second Hand Exposure: No Alcohol Intake: former Drug use: Never Substance use type: does not use Caregiver/Support person: No Household members: significant other Housing: house Communication Needs: None Do you need help understanding health information?: Never Pets and animals: Yes Pets and animals: cat(s) Sexually active: Yes Do you think of yourself as: straight/heterosexual Current gender identity: male What is your relationship status?: living with partner How often do you talk on the phone with friends or family?: three or more times per week How often do you get together with friends or relatives?: twice per week How often do you attend bahai or oriental orthodox services?: decline to answer Do you belong to any clubs or organized social groups?: no Panel score (0-1 are the most socially isolated patients): 2 What type of physical activity do you participate in: walking Duration: < 15 minutes/day Frequency: daily Antonia/Yazidism: None Special antonia needs: No Seatbelt use: always Helmet use: No Drive intox or 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 Pleasant, well groomed, interactive. HEAD: Normocephalic, atraumatic ENT: Mucous membranes moist, oropharynx unremarkable, External ear exam unremarkable EYES: PERRL, EOMI NECK: Full ROM, no KRISTINE, no menigismus CHEST/RESP: Nontender, clear to auscultation bilateral, no wheeze/rhonchi/rales CARDIOVASCULAR: Distant, RRR, no murmur, rub merrick. 2+ Rad pulse bilateral ABDOMEN: Soft, nontender, no mass. +Bowel sounds EXT: Full ROM, no edema, no rash Neuro: Grossly normal neurologic exam, conversant, interactive. Psych: Speech fluent, thoughts congruent, affect normal Course Vital Signs Vital signs: Vital Signs Pulse 90 05/19/20 14:48 Respiratory Rate 05/19/20 14:48 Blood Pressure 91/58 L 05/19/20 14:48 Pulse Oximetry 100 05/19/20 14:48 Pulse 90 05/19/20 14:48 Respiratory Rate 05/19/20 14:48 Respiratory Effort Non-Labored 05/19/20 14:53 Blood Pressure 91/58 L 05/19/20 14:48 Blood Pressure Position Sitting 05/19/20 14:48 Pulse Oximetry 100 05/19/20 14:48 Oxygen Delivery Method Room Air 05/19/20 14:48 Oxygen Flow Rate 0 05/19/20 14:48
[2020-05-19] MEDS: Normal Saline 1,000 ML 1000 ML IV (15:43)
[2020-05-19 15:50] LABS: HCT 31.5 % (40.0-50.0); HGB 10.7 g/dL (13.5-17.5); Mean Corpuscular Hemoglobin 29.2 pg (27.0-33.0); Mean Corpuscular Volume 85.8 fL (80-95); Mean Platelet Volume 10.7 fL (8.0-11.0); RBC 3.67 m/cumm (4.50-6.00); RBC Distribution Width 13.1 % (11.8-14.1)
[2020-05-19 15:57] LABS: White Blood Cell Count 0.71 k/cumm (4.4-10.8)
[2020-05-19 16:03] LABS: ALT 14 U/L (16-63); AST 11 U/L (15-37); Albumin 2.7 g/dL (3.4-5.0); Alkaline Phosphatase 86 U/L (46-116); Anion Gap 9.8 mmol/L (3-11); BUN 33 mg/dL (7-18); Bilirubin, Total 0.4 mg/dL (0.2-1.0); CO2 22.2 mmol/L (21.0-32.0); CREATININE 1.89 mg/dL (0.70-1.30); Calcium 8.3 mg/dL (8.5-10.1); Chloride 97 mmol/L (98-107); Estimated GFR 37.08 (mL/min/1.73m2); Glucose 194 mg/dL (74-106); Magnesium 1.5 mg/dL (1.8-2.4); Potassium 4.2 mmol/L (3.5-5.1); Sodium 129 mmol/L (136-145); Total Protein 5.9 g/dL (6.4-8.2)
[2020-05-19 16:04] LABS: Troponin I < 0.05 ng/mL (<0.06)
[2020-05-19 16:16] LABS: Platelet Count 85 x1000/uL (130-400)
[2020-05-19 16:17] LABS: Absolute Basophil Count 0.06 k/cumm (0.0-0.2); Absolute Eosinophil Count 0.04 k/cumm (0.0-0.7); Absolute Lymphocyte Count 0.36 k/cumm (1.2-3.4); Absolute Monocyte Count 0.17 k/cumm (0.11-0.7); Atypical Lymphocytes % 2
[2020-05-19 16:18] LABS: Absolute Neutrophil Count 0.09 k/cumm (1.2-6.7)
[2020-05-19 16:19] LABS: Diff Comment Manual Differential; RBC Morphology Normal
[2020-05-19] MEDS: MAGNESIUM SULFATE 1 GM/100 ML BAG IVPB (16:41)
--- NOTE | 2020-05-19 17:12 | NUR.NOTE ---
Nursing Note: Referral fax to PCP ECHO Referral faxed DI
[2020-05-19] MEDS: Heparin 500 UNITS/5 ML SYRINGE (18:15)
== END 2020-05-19 18:38 | disposition home or self-care (01) ==
PROVIDERS: Emergency Provider Emergency Medicine; PCP Emergency Medicine
DX: E86.1 Hypovolemia (principal); I95.1 Orthostatic hypotension; E83.42 Hypomagnesemia; C83.30 Diffuse large B-cell lymphoma, unspecified site; Z79.899 Other long term (current) drug therapy; Z95.828 Presence of other vascular implants and grafts; I12.9 Hypertensive chronic kidney disease with stage 1 through stage 4 chronic kidney disease, or unspecified chronic kidney disease; E11.22 Type 2 diabetes mellitus with diabetic chronic kidney disease; N18.9 Chronic kidney disease, unspecified; J44.9 Chronic obstructive pulmonary disease, unspecified; Z87.891 Personal history of nicotine dependence; Z45.2 Encounter for adjustment and management of vascular access device
CPT/HCPCS: 36591; 80053; 93005; 96361; 96365; 99284; 83735; 84484; 85025; 93010; J3475

== ENCOUNTER 2020-05-23 00:49 | Outpatient (CLI) | payer MEDICARE, MEDICAID, SELFPAY ==
--- NOTE | 2020-05-23 12:22 | DI.US_ITS ---
APPROVED REPORT EXAM: Comprehensive 2D, Doppler, and color-flow Echocardiogram Patient Location: Out-Patient Tool Design Draftsperson: Sylvie Hernandez RDCS (AE) Other Information Study Quality: Adequate Conclusion Normal left ventricular chamber size and wall thickness. Estimated ejection fraction is 55%. There are no segmental wall motion abnormalities Normal right ventricular size and systolic function Both atria are normal in size The aortic valve is structurally normal without regurgitation or stenosis Mildly thickened mitral leaflets with trace regurgitation Structurally normal tricuspid and pulmonic valves. Trace tricuspid and pulmonic regurgitation Compared to previous echocardiogram from December 2019, left ventricular systolic function has now yue lized Wall motion Left Ventricle The left ventricle is normal size. The left ventricular systolic function is normal. The left ventric ular ejection fraction is within the normal range. There is normal left ventricular wall thickness. T here is normal LV segmental wall motion. There is no ventricular septal defect visualized. LVEF is 55 %. Right Ventricle The right ventricle is normal size. The right ventricular systolic function is normal. The RVSP is24. 7 mmHg. Atria The left atrium size is normal. The right atrium size is normal. The interatrial septum is intact wit h no evidence for an atrial septal defect. Aortic Valve The aortic valve is normal in structure. Aortic valve is trileaflet. There is no aortic valvular sten osis. No aortic regurgitation is present. Mitral Valve Mildly thickened mitral leaflet No evidence of mitral valve stenosis. Trace mitral regurgitation. Tricuspid Valve The tricuspid valve is normal in structure. There is no tricuspid valve stenosis. Trace tricuspid reg urgitation. Pulmonic Valve The pulmonary valve is normal in structure. There is no pulmonic valvular stenosis. Trace pulmonic re gurgitation. Great Vessels The aortic root is normal in size. The ascending aorta is mildly dilated. IVC is normal in size and c ollapses >50% with inspiration. Pericardium There is no pericardial effusion. 2D Dimensions IVSD d PLAX 0.98 cm M: 0.6-1.2 LV Vol A2C d MOD 84.0 mL LVPW d PLAX 1.01 cm M: 0.6 - 1.2 LV Vol A4C d MOD 96.3 mL LVID d PLAX 4.43 cm M: 4.2 - 5.8 LA vol/ BSA A2C s A-L 12.7 mL/m2 LVDs 3.10 cm M: 2.5 - 4.0 LA vol/ BSA A4C s A-L 14.5 mL/m2 Ao Root d 3.18 cm M: 3.1 - 3.7 LA Vol/ BSA Biplane s A-L 15.0 mL/m2 RA Area A4C 9.68 cm2 LA Area A4C s MOD 14.15 cm2 RA Vol/ BSA A4C s A-L 8.7 mL/m2 LA Area A2C s MOD 11.98 cm2 Ao Asc Diam d 3.51 cm M: 2.6 - 3.4 LV EF A4C MOD 54.4 % LV EF Teichholz 57.0 % LV EF A2C MOD 55.3 % LVEF (Harris's) 51.60 % M: 52 - 72 LV EF Biplane MOD 51.6 % LV Volume 66.89 mL M: 62 - 150 SV 47.90 mL LV Volume Index 29.59 mL/m2 M: 34 - 74 SV Index 21.13 mL/m2 LV Vol Biplane MOD 92.8 mL FS 29.70 % M-Mode TAPSE 1.26 cm (M/F) >1.7 LV Diastology MV E' medial 0.065 (>0.07 m/s) E/A Ratio 0.7 LV E/e MED 9.35 (<14) MV E Vmax 0.60 (0.4-1.3 m/s) MV E' lateral 0.089 (>0.1 m/s) MV A Vmax 0.85 (0.4-1.3 m/s) LV E/e LAT 6.75 (<14) MV E/A Ratio 0.70 MV E/E' medial 9.37 MV E/E' lateral 6.79 Aortic Valve LVOT Area 3.53 cm2 AoV Area Vmax 3.16 cm2 LVOT Vmax 1.02 m/s AoV Area/ BSA (Vmax) 1.39 cm2/m2 LVOT Mean Juan. 0.65 m/s CARMELA Mean Juan. 2.88 cm2 LVOT Peak Grad 4.1 mmHg CARMELA Mean Juan. Index 1.27 cm2/m2 LVOT Mean Grad 2.0 mmHg LVOT VTI 0.162 m LVOT Diam s 2.10 cm AoV Vmax 1.14 m/s Velocity Ratio 0.89 AoV Mean Ujan. 0.80 m/s AoV Peak Grad 5.2 mmHg LVOT SV 57.39 mL AoV Mean Grad 2.8 mmHg AoV VTI 0.191 m AoV Area VTI 3.00 cm2 AoV Area/ BSA (VTI) 1.32 cm/m2 Mitral Valve MV DT 337 (160-240 msec) MV PHT 98 msec MV Area PHT 2.25 cm2 Pulmonary Valve PV Vmax 1.14 (0.5-1.5 m/s) RVOT Peak Gr. 2.06 mmHg PV Peak Grad 5.2 mmHg RVOT Mean Gr. 1.00 mmHg PV Mean Grad 2.3 mmHg RVOT VTI 0.122 m PV VTI 0.176 m RVOT Vmax 0.72 m/s Tricuspid Valve TR Peak Grad 21.5 mmHg TR Vmax 2.32 m/s RA Pressure 3.00 mmHg RVSP (TR) 24.7 mmHg
== END 2020-05-23 01:09 ==
PROVIDERS: PCP Emergency Medicine; Visit Provider Emergency Medicine
DX: C85.18 Unspecified B-cell lymphoma, lymph nodes of multiple sites (principal); Z01.818 Encounter for other preprocedural examination; Z79.899 Other long term (current) drug therapy; I95.89 Other hypotension
CPT/HCPCS: 93306

== ENCOUNTER 2020-05-31 03:28 | Outpatient (RCR) | payer MEDICARE, MEDICAID, SELFPAY ==
[2020-05-31] MEDS: Normal Saline Flush 10 ML SYR IVP (07:47)
[2020-05-31 07:51] LABS: HCT 37.5 % (40.0-50.0); HGB 12.4 g/dL (13.5-17.5); MCH 28.8 pg (27.0-33.0); MCHC 33.1 % (32.0-36.0); MCV 87.2 fL (80-95); MPV 9.5 fL (8.0-11.0); Nucleated RBC 0 %; Platelet Count 408 10^3/uL (130-400); RDW-SD 42.3 fL; WBC 12.21 10^3/uL (4.4-10.8)
[2020-05-31 08:03] LABS: ALT 15 U/L (16-63); AST 21 U/L (15-37); Albumin 2.9 g/dL (3.4-5.0); Alkaline Phosphatase 94 U/L (46-116); Anion Gap 7.9 mmol/L (3-11); BUN 24 mg/dL (7-18); Bilirubin, Total 0.6 mg/dL (0.2-1.0); CO2 26.1 mmol/L (21.0-32.0); CREATININE 2.17 mg/dL (0.70-1.30); Calcium 8.7 mg/dL (8.5-10.1); Chloride 100 mmol/L (98-107); Estimated GFR 31.61 (mL/min/1.73m2); Glucose 147 mg/dL (74-106); LDH 218 U/L (85-227); Potassium 3.9 mmol/L (3.5-5.1); Sodium 134 mmol/L (136-145); Total Protein 6.4 g/dL (6.4-8.2); Uric Acid 6.7 mg/dL (3.5-7.2)
[2020-05-31 08:22] LABS: Absolute Lymphocyte Count 0.98 10^3/uL (1.2-3.4); Absolute Monocyte Count 1.83 10^3/uL (0.1-0.8); Absolute Neutrophil Count 9.04 10^3/uL (1.2-6.7); Bands % 7
[2020-05-31 08:23] LABS: Diff Comment Manual Differential; Myelocytes % 3; RBC Morphology Normal
== END 2020-06-26 23:59 | disposition home or self-care (01) ==
LOC: INF 03:28
PROVIDERS: PCP Emergency Medicine; Visit Provider Internal Medicine Hematology & Oncology
DX: C83.38 Diffuse large B-cell lymphoma, lymph nodes of multiple sites (principal); Z95.1 Presence of aortocoronary bypass graft; F17.211 Nicotine dependence, cigarettes, in remission; E11.3513 Type 2 diabetes mellitus with proliferative diabetic retinopathy with macular edema, bilateral; Z79.4 Long term (current) use of insulin
CPT/HCPCS: 36591; 80053; 83615; 84550; 85025

== ENCOUNTER 2020-07-26 13:50 | Outpatient (RCR) | payer MEDICARE, MEDICAID, SELFPAY | END 2020-07-26 23:59 | disposition home or self-care (01) | LOC: INF 13:50 | PROVIDERS: PCP Emergency Medicine; Visit Provider Internal Medicine Hematology & Oncology | DX: Z53.9 Procedure and treatment not carried out, unspecified reason (principal) ==

== ENCOUNTER 2020-08-04 02:30 | Outpatient (CLI) | payer MEDICARE, MEDICAID, SELFPAY ==
[2020-08-04 10:42] LABS: Hemoglobin A1C 8.2 % (<5.7)
== END 2020-08-04 02:50 ==
PROVIDERS: PCP Emergency Medicine; Visit Provider Emergency Medicine
DX: E11.9 Type 2 diabetes mellitus without complications (principal)
CPT/HCPCS: 36415; 83036

== ENCOUNTER 2020-11-15 04:21 | Outpatient (CLI) | payer MEDICARE, MEDICAID, SELFPAY ==
[2020-11-15 08:52] LABS: Abs Immature Grans 0.06 10^3/uL (0.0-0.06); Absolute Basophil Count 0.08 10^3/uL (0.0-0.2); Absolute Eosinophil Count 0.27 10^3/uL (0.0-0.7); Absolute Lymphocyte Count 1.27 10^3/uL (1.2-3.4); Absolute Monocyte Count 0.91 10^3/uL (0.1-0.8); Absolute Neutrophil Count 5.29 10^3/uL (1.2-6.7); Eosinophils % 3.4; HCT 52.6 % (40.0-50.0); HGB 17.1 g/dL (13.5-17.5); Immature Grans % 0.8; Lymphocytes % 16.1; MCHC 32.5 % (32.0-36.0); MCV 83.1 fL (80-95); MPV 10.1 fL (8.0-11.0); Monocytes % 11.5; Neutrophils % 67.2; Nucleated RBC 0 %; RBC 6.33 10^6/uL (4.36-5.78); RDW 13.4 % (11.8-14.1); RDW-SD 40.9 fL; WBC 7.88 10^3/uL (4.4-10.8)
[2020-11-15 09:00] LABS: Hemoglobin A1C 9.7 % (<5.7)
[2020-11-15 09:14] LABS: Diff Comment Diff Reviewed; Platelet Count 248 10^3/uL (130-400); RBC Morphology Normal
[2020-11-15 09:44] LABS: ALT 30 U/L (16-63); AST 20 U/L (15-37); Albumin 4.2 g/dL (3.4-5.0); Alkaline Phosphatase 99 U/L (46-116); Anion Gap 6.3 mmol/L (3-11); BUN 34 mg/dL (7-18); Bilirubin, Total 0.7 mg/dL (0.2-1.0); CO2 28.7 mmol/L (21.0-32.0); CREATININE 1.86 mg/dL (0.70-1.30); Calcium 9.5 mg/dL (8.5-10.1); Chloride 98 mmol/L (98-107); Estimated GFR 37.77 (mL/min/1.73m2); Glucose 212 mg/dL (74-106); LDH 142 U/L (85-227); Potassium 4.9 mmol/L (3.5-5.1); Sodium 133 mmol/L (136-145); Total Protein 7.6 g/dL (6.4-8.2)
[2020-11-15 09:50] LABS: NT-proBNP 83 pg/mL (<300)
== END 2020-11-15 04:41 ==
PROVIDERS: Internal Medicine Hematology & Oncology; Nurse Practitioner; PCP Emergency Medicine; Visit Provider Emergency Medicine
DX: C83.30 Diffuse large B-cell lymphoma, unspecified site (principal); E11.9 Type 2 diabetes mellitus without complications; R06.02 Shortness of breath
CPT/HCPCS: 36415; 80048; 80053; 83036; 83615; 83880; 85025

== ENCOUNTER 2021-01-10 01:52 | Outpatient (RCR) | payer MEDICARE, MEDICAID, SELFPAY ==
[2021-01-10] MEDS: Normal Saline Flush 10 ML SYR IVP (12:35)
[2021-01-10] MEDS: Heparin 500 UNITS/5 ML SYRINGE IV (12:35)
[2021-01-10 12:50] LABS: Abs Immature Grans 0.07 10^3/uL (0.0-0.06); Absolute Eosinophil Count 0.24 10^3/uL (0.0-0.7); Absolute Lymphocyte Count 1.74 10^3/uL (1.2-3.4); Absolute Monocyte Count 0.92 10^3/uL (0.1-0.8); Absolute Neutrophil Count 7.38 10^3/uL (1.2-6.7); Eosinophils % 2.3; HCT 52.6 % (40.0-50.0); HGB 17.3 g/dL (13.5-17.5); Immature Grans % 0.7; Lymphocytes % 16.7; MCH 27.2 pg (27.0-33.0); MCHC 32.9 % (32.0-36.0); MCV 82.6 fL (80-95); MPV 10.6 fL (8.0-11.0); Monocytes % 8.8; Neutrophils % 70.5; Nucleated RBC 0 %; RDW 12.9 % (11.8-14.1); RDW-SD 38.6 fL; WBC 10.45 10^3/uL (4.4-10.8)
[2021-01-10 13:09] LABS: RBC 6.37 10^6/uL (4.36-5.78)
[2021-01-10 13:10] LABS: Diff Comment Agrees w/ Instrument; Platelet Count 248 10^3/uL (130-400); RBC Morphology Normal
[2021-01-10 13:13] LABS: ALT 31 U/L (16-63); AST 19 U/L (15-37); Alkaline Phosphatase 104 U/L (46-116); Anion Gap 6.2 mmol/L (3-11); BUN 34 mg/dL (7-18); Bilirubin, Total 0.7 mg/dL (0.2-1.0); CO2 27.8 mmol/L (21.0-32.0); CREATININE 1.7 mg/dL (0.70-1.30); Calcium 9.2 mg/dL (8.5-10.1); Chloride 99 mmol/L (98-107); Estimated GFR 41.75 (mL/min/1.73m2); Glucose 262 mg/dL (74-106); LDH 132 U/L (85-227); Potassium 4.6 mmol/L (3.5-5.1); Sodium 133 mmol/L (136-145); Total Protein 7.7 g/dL (6.4-8.2)
== END 2021-01-24 23:59 | disposition home or self-care (01) ==
LOC: INF 01:52
PROVIDERS: PCP Emergency Medicine; Visit Provider Internal Medicine Hematology & Oncology
DX: C83.30 Diffuse large B-cell lymphoma, unspecified site (principal); Z45.2 Encounter for adjustment and management of vascular access device
CPT/HCPCS: 36591; 80053; 83615; 85025

== ENCOUNTER 2021-02-19 12:15 | Emergency (ER) | payer MEDICARE, MEDICAID, SELFPAY ==
--- NOTE | 2021-02-19 12:15 | RT.EKG_ITS ---
APPROVED REPORT Exam: Resting ECG Patient Location: E HR:93 bpm ECG Measurements Heart Rate 93 AXIS NH 145 P 53 QRSd 91 QRS -5 QT 357 T 67 QTc 445 Conclusion Sinus rhythm...normal P axis, V-rate 60- 99 Probable left atrial enlargement...P >50mS, <-0.10mV V1 Inferior infarct, old...Q >35mS, II III aVF no STEMI, non-diagnostic EKG I have reviewed and interpreted ECG and agree with software generated interpretation. Anteroseptal infarct, old...Q >40mS, V1-V2
[2021-02-19 12:19] VITALS: BP 185/111; PULSE 105; RESP 16; TEMP 36.7; O2SAT 100
[2021-02-19 12:20] VITALS: BP 185/111; PULSE 98; O2SAT 98
[2021-02-19 12:26] VITALS: RESP 16
[2021-02-19 12:34] VITALS: BP 156/95; PULSE 92; PULSE 96; RESP 14; O2SAT 99
--- NOTE | 2021-02-19 12:39 | W.ED.GENAD ---
Discharge Plan Disposition Patient Disposition: HOME Condition: Good Discharge Details Clinical Impression: Elevated blood pressure reading Primary Care Provider: Travis Castro ED Provider: Tamera Haddad Home Meds and New Rx's Prescriptions: No Action ASPIRIN 81 MG tablet 1 tab PO DAILY RF: 0 (DME) blood-glucose meter [Blockboardigy Autocode Meter] 1 EACH kit 1 ea Miscellaneous QID Qty: 1 RF: 0 (DME) BD Regular Bevel [place] 21 gauge x 1 1/2 needle 1 ea Miscellaneous DAILY Qty: 90 RF: 12 glipizide [Glucotrol] 10 mg tablet 10 mg PO BID Qty: 180 RF: 4 (DME) lancets [Prodigy Lancets] 28 gauge misc 1 ea Miscellaneous QID Qty: 360 RF: 4 (DME) Blood Glucose Test Strip 1 ea Miscellaneous QID Qty: 360 RF: 3 Januvia 100 mg tablet 100 mg PO DAILY Qty: 90 RF: 3 ezetimibe [Zetia] 10 mg tablet 10 mg PO DAILY Qty: 90 RF: 3 omeprazole 20 mg capsule,delayed release(DR/EC) 20 mg PO DAILY Qty: 90 RF: 6 Basaglar KwikPen U-100 Insulin 100 unit/mL (3 mL) insulin pen 80 unit subcut DAILY Qty: 12 RF: 12 midodrine 2.5 mg tablet 5 mg PO BID Qty: 180 RF: 1 Discharge Instructions Additional Instructions: Please follow-up with your sock and stocking ironer tomorrow Take 5 mg tab of your midodrine at night and two-point 5 in the morning as a trial Check your blood pressure daily, try to check it at the same time today Please return should you have new or worsening complaints Please have your blood work rechecked by your primary care physician but your labs seems stable, your blood sugar was elevated today, please Dose your insulin accordingly Medical Decision Making Patient actually without intervention have been blood pressure decreased to 135/85, he is completely asymptomatic and well in appearance His diagnostic labs are baseline for patient with a creatinine of 1.7, glucose of 268 Creatinine is baseline for patient, no evidence of hypertensive urgency or emergency on this evaluation, no evidence of electrolyte abnormality, no evidence of diabetic ketoacidosis Patient is encouraged to take his insulin when he returns home Advised to call to Di Santacruz, patient provider at [facility], my plan is to decrease patient's midodrine to two-point 5 in the morning and two-point 5 in the evening Patient is alert and ambulatory at time of discharge home Di Santacruz and she is comfortable with this plan and will follow up outpatient He will call his sock and stocking ironer for close outpatient follow-up and return earlier should he have new or worsening complaints Differential Diagnosis Differential Diagnosis: Hypertensive urgency, adverse effect to medication, electrolyte abnormality Medical Records Medical records reviewed: Yes I reviewed the patient's medical records. Lab Data Lab results reviewed: Yes I reviewed the patient's lab results. ECG Data Prior ECG tracings: available for review HPI This 55-year-old gentleman with history of B-cell lymphoma, atrial fibrillation, hypertension, hyperlipidemia, coronary artery disease with triple bypass 2012, COPD, diabetic retinopathy, type 2 diabetes presents with report of hypertension this morning. Patient just recently completed chemotherapy approximately 3 months ago. During his chemotherapy he was found to be hypotensive and was removed from his metoprolol and lisinopril and actually placed on midodrine for hypotension. He has been tolerating this well but in the past 2 weeks has had several blood pressures that have been in the low 150s over 90s. He is completely asymptomatic with his routine blood pressure screening. At this time he denies dizziness, headache, vision changes, speech or sensation change, nausea, vomiting, or any additional complaints at this time. He denies any fever or chills. He otherwise feels quite at his baseline. Denies chest pain or shortness of breath. Denies any peripheral edema or significant weight gain. Denies any other additional history of medications. General Date/Time Provider Initiated Documentation: 02/19/21 12:23. Related Data Home Medications Medication Instructions Recorded Confirmed Aspirin 1 tab PO DAILY tab-cap 02/01/13 02/19/21 blood-glucose meter [Prodigy #1 kit 11/28/17 04/25/20 Autocode Meter] needle (disp) 21 G 21 gauge x 1 #90 ndl 02/02/20 04/25/20 1/2 glipizide 10 mg tablet 10 mg PO BID #180 tab 06/09/20 02/19/21 lancets 28 gauge #360 ea 09/01/20 blood sugar diagnostic #360 strip 09/05/20 sitagliptin 100 mg tablet 100 mg PO DAILY #90 tab 09/13/20 02/19/21 ezetimibe 10 mg tablet 10 mg PO DAILY #90 tab 10/12/20 02/19/21 omeprazole 20 mg capsule,delayed 20 mg PO DAILY #90 cap 12/12/20 02/19/21 release insulin glargine 100 unit/mL (3 80 unit SUBCUT DAILY #12 pen 01/15/21 02/19/21 mL) subcutaneous pen midodrine 2.5 mg tablet 5 mg PO BID #180 tab 01/30/21 02/19/21 Previous Rx's Medication Instructions Recorded blood-glucose meter [Prodigy #1 kit 11/28/17 Autocode Meter] needle (disp) 21 G 21 gauge x 1 #90 ndl 02/02/2010/28 glipizide 10 mg tablet 10 mg PO BID #180 tab 06/09/20 lancets 28 gauge #360 ea 09/01/20 blood sugar diagnostic #360 strip 09/05/20 sitagliptin 100 mg tablet 100 mg PO DAILY #90 tab 09/13/20 ezetimibe 10 mg tablet 10 mg PO DAILY #90 tab 10/12/20 omeprazole 20 mg capsule,delayed 20 mg PO DAILY #90 cap 12/12/20 release insulin glargine 100 unit/mL (3 80 unit SUBCUT DAILY #12 pen 01/15/21 mL) subcutaneous pen midodrine 2.5 mg tablet 5 mg PO BID #180 tab 01/30/21 Allergies Allergy/AdvReac Type Severity Reaction Status Date / Time famotidine AdvReac Severe diarrhea Verified 11/14/20 07:30 metformin AdvReac Severe VOMITING/DI Verified 11/14/20 07:30 ZZINESS atorvastatin AdvReac Intermediate Verified 11/14/20 07:30 pravastatin AdvReac Intermediate myalgias Verified 11/14/20 07:30 simvastatin AdvReac Intermediate JOINT PAIN Verified 11/14/20 07:30 General Stated Complaint: GenMedical ASHKAN: 3 Review of Systems Narrative: Review of systems obtained x7 aside from where indicated in HPI [facility] Medical History (Updated 02/19/21 @ 13:43 by IMAN Michael) BPH associated with nocturia (06/16/18) CKD (chronic kidney disease) COPD (chronic obstructive pulmonary disease) Diabetic retinopathy severe; laser RX--blind OD Essential hypertension (08/05/13) Hypercholesterolemia Obesity Type II diabetes mellitus with neurological manifestations Surgical History History of cataract removal with insertion of prosthetic lens History of coronary artery bypass surgery Family History (Updated 11/15/20 @ 09:09 by Elizabeth Boo) Mother Heart disease Myocardial infarction CABG Father , 41 Myocardial infarction Sister Essential hypertension Maternal Grandmother Alzheimer disease Son No problems noted. Maternal Uncle Cancer Social History (Updated 11/15/20 @ 09:09 by Elizabeth Boo) Smoking/Tobacco Use Status: Former Tobacco Use Quit Date: 10/27/11 Tobacco: How many years used: 20 Second Hand Exposure: No Smoking risk assessment performed?: Yes Alcohol Intake: former Drug use: Never Substance use type: does not use Caregiver/Support person: No Household members: significant other Housing: house Communication Needs: None Do you need help understanding health information?: Never Pets and animals: Yes Pets and animals: cat(s) Sexually active: Yes Do you think of yourself as: straight/heterosexual Current gender identity: male What is your relationship status?: living with partner How often do you talk on the phone with friends or family?: three or more times per week How often do you get together with friends or relatives?: once per week How often do you attend taoism or confucianism services?: decline to answer Do you belong to any clubs or organized social groups?: no Panel score (0-1 are the most socially isolated patients): 2 What type of physical activity do you participate in: walking Duration: 15-30 minutes/day Frequency: 3-4 times per week Antonia/Taoist: None Special antonia needs: No Seatbelt use: always Helmet use: No Drive intox or ride w/intox livery car driver: No Do you feel safe at home: Yes Do you feel safe in your relationship?: Yes Victim of physical abuse: No Victim of emotional abuse: No Victim of sexual abuse: No Would you like helpful sources: No Exam Const General: cooperative and comfortable Eyes Pupils: PERRL Chest Chest: normal inspection of the chest Other: Port without evidence of secondary infection Resp Effort & Inspection: normal respiratory effort Auscultation: clear to auscultation bilaterally Cardio Rate: regular rate Rhythm: regular rhythm Skin General skin exam: no rashes or lesions noted Neuro General: patient alert and patient oriented x3 Cranial Nerves: CN's II-XI intact bilaterally Cognition: normal cognition Speech: speech normal Extrem Other: No peripheral edema Course Vital Signs Vital signs: Vital Signs Temperature 36.7 C 02/19/21 12:19 Pulse 105 H 02/19/21 12:19 Respiratory Rate 16 02/19/21 12:19 Blood Pressure 185/11 H 02/19/21 12:19 Pulse Oximetry 100 02/19/21 12:19 Temperature 36.7 C 02/19/21 12:19 Temperature Source Skin 02/19/21 12:19 Pulse 105 H 02/19/21 12:19 Respiratory Rate 16 02/19/21 12:26 Respiratory Effort Non-Labored 02/19/21 12:26 Respiratory Depth Normal 02/19/21 12:26 Respiratory Pattern Normal 02/19/21 12:26 Blood Pressure 185/11 H 02/19/21 12:19 Blood Pressure Position Sitting 02/19/21 12:19 Pulse Oximetry 100 02/19/21 12:19 Oxygen Delivery Method Room Air 02/19/21 12:19 Oxygen Flow Rate 0 02/19/21 12:19 Pain Level 0 02/19/21 12:19
[2021-02-19 12:46] VITALS: BP 140/85; PULSE 90; PULSE 92; RESP 13; O2SAT 98
[2021-02-19 13:01] LABS: Abs Immature Grans 0.09 10^3/uL (0.0-0.06); Absolute Basophil Count 0.09 10^3/uL (0.0-0.2); Absolute Eosinophil Count 0.24 10^3/uL (0.0-0.7); Absolute Lymphocyte Count 1.36 10^3/uL (1.2-3.4); Absolute Monocyte Count 0.79 10^3/uL (0.1-0.8); Absolute Neutrophil Count 7.93 10^3/uL (1.2-6.7); Basophils % 0.9; Eosinophils % 2.3; HGB 17.2 g/dL (13.5-17.5); Immature Grans % 0.9; MCH 27.8 pg (27.0-33.0); MCHC 33.7 % (32.0-36.0); MCV 82.5 fL (80-95); MPV 10.5 fL (8.0-11.0); Monocytes % 7.5; Neutrophils % 75.4; Nucleated RBC 0 %; Platelet Count 217 10^3/uL (130-400); RDW 12.8 % (11.8-14.1); RDW-SD 38.4 fL
[2021-02-19 13:06] LABS: RBC 6.18 10^6/uL (4.36-5.78)
[2021-02-19 13:13] LABS: ALT 36 U/L (16-63); AST 18 U/L (15-37); Albumin 3.9 g/dL (3.4-5.0); Alkaline Phosphatase 102 U/L (46-116); Anion Gap 6.8 mmol/L (3-11); BUN 27 mg/dL (7-18); Bilirubin, Total 0.6 mg/dL (0.2-1.0); CO2 29.2 mmol/L (21.0-32.0); CREATININE 1.7 mg/dL (0.70-1.30); Calcium 8.9 mg/dL (8.5-10.1); Chloride 99 mmol/L (98-107); Estimated GFR 41.75 (mL/min/1.73m2); Glucose 268 mg/dL (74-106); Potassium 4.7 mmol/L (3.5-5.1); Sodium 135 mmol/L (136-145); Total Protein 7.6 g/dL (6.4-8.2)
[2021-02-19 13:26] VITALS: BP 135/85; PULSE 87; PULSE 88; RESP 16; O2SAT 98
== END 2021-02-19 13:48 | disposition home or self-care (01) ==
PROVIDERS: Emergency Provider Physician Assistant; PCP Emergency Medicine
DX: R03.0 Elevated blood-pressure reading, without diagnosis of hypertension (principal)
CPT/HCPCS: 36415; 80053; 93005; 99283; 85025; 93010

== ENCOUNTER 2021-02-23 12:17 | Emergency (ER) | payer MEDICARE, MEDICAID, SELFPAY ==
--- NOTE | 2021-02-23 12:15 | RT.EKG_ITS ---
APPROVED REPORT Exam: Resting ECG Patient Location: E HR:78 bpm ECG Measurements Heart Rate 78 AXIS MI 148 P 45 QRSd 90 QRS -6 QT 377 T 56 QTc 430 Conclusion Sinus rhythm...normal P axis, V-rate 60- 99 Probable left atrial enlargement...P >50mS, <-0.10mV V1 Anteroseptal infarct, old...Q >40mS, V1-V2 I have reviewed and interpreted ECG and agree with software generated interpretation.
[2021-02-23 12:24] VITALS: BP 166/101; PULSE 87; RESP 18; TEMP 36.6; O2SAT 98
--- NOTE | 2021-02-23 13:29 | ED.GENADUL_ITS ---
Discharge Plan Disposition Patient Disposition: HOME Condition: Good Discharge Details Clinical Impression: Elevated blood pressure reading Primary Care Provider: Travis Castro ED Provider: Tamera Haddad Home Meds and New Rx's Prescriptions: No Action ASPIRIN 81 MG tablet 1 tab PO DAILY RF: 0 (DME) blood-glucose meter [Prodigy Autocode Meter] 1 EACH kit 1 ea Miscellaneous QID Qty: 1 RF: 0 (DME) BD Regular Bevel [place] 21 gauge x 1 1/2 needle 1 ea Miscellaneous DAILY Qty: 90 RF: 12 glipizide [Glucotrol] 10 mg tablet 10 mg PO BID Qty: 180 RF: 4 (DME) lancets [Prodigy Lancets] 28 gauge misc 1 ea Miscellaneous QID Qty: 360 RF: 4 (DME) Blood Glucose Test Strip 1 ea Miscellaneous QID Qty: 360 RF: 3 Januvia 100 mg tablet 100 mg PO DAILY Qty: 90 RF: 3 ezetimibe [Zetia] 10 mg tablet 10 mg PO DAILY Qty: 90 RF: 3 omeprazole 20 mg capsule,delayed release(DR/EC) 20 mg PO DAILY Qty: 90 RF: 6 Basaglar KwikPen U-100 Insulin 100 unit/mL (3 mL) insulin pen 80 unit subcut DAILY Qty: 12 RF: 12 midodrine 2.5 mg tablet 1.25 mg PO DAILY RF: 0 Discharge Instructions Additional Instructions: Please follow-up with your primary care physician on Friday for reevaluation Try taking your midodrine at night only and see her blood pressure is around 11 or 12 in the afternoon the following day Please return should you have new or worsening complaints Today her blood pressure went down to 116/85 (reassuring) Your blood work is within normal limits for you Medical Decision Making This is patient's second visit for similar symptoms, his blood pressure is 116/85 which is reassuring His EKG does not show acute change from prior His creatinine is 1.7, this appears to be his baseline when compared to prior He will decrease his maturity pills once daily, 1.25 mg and follow-up with his doctor in the Outpatient setting No intervention was performed today, there is no evidence of any sort of neurological compromise on today's evaluation, patient is completely alert, oriented with a nonfocal neurological exam There is indication for CT imaging time No intervention aside from observation and diagnostic blood work and EKG were performed No clinical evidence of TIA, low suspicion with generalized symptoms Low suspicion for hypertensive urgency, blood pressure elevation resolved in the absence of intervention low threshold to return for new or worsening complaints Discharge home stable condition with stable vitals Differential Diagnosis Differential Diagnosis: Hypertensive urgency, TIA, adverse effect of medication, anxiety Medical Records Medical records reviewed: Yes I reviewed the patient's medical records. Lab Data Lab results reviewed: Yes I reviewed the patient's lab results. ECG Data Prior ECG tracings: available for review HPI General Mode of arrival: ambulatory . Date/Time Provider Initiated Documentation: 02/23/21 12:48 . Limitations to Documentation: no limitations . Information obtained by: patient . HPI Narrative: This 55-year-old gentleman with history of atrial fibrillation, B-cell lymphoma, abdominal mass, hypercholesterolemia, hypertension, coronary artery disease, COPD, chronic kidney disease, BPH, polyneuropathy presents with report of checking his daily blood pressure at approximately 9:00 this morning found it to be elevated at 200/119. He states that immediately after he saw the elevated blood pressure reading, he had paresthesias which were generalized in nature. He denies any strength or sensation changes. He denies any fever or chills. He states that he previously was prescribed midodrine secondary to orthostatic hypotension and has cut back significantly on this medication. He is taking 1.25 mg in the morning and in the evening. He was evaluated in the emergency room several days ago and told to decrease his medication and also spoke with [facility] who corroborated. Related Data Home Medications Medication Instructions Recorded Confirmed Aspirin 1 tab PO DAILY tab-cap 02/01/13 02/23/21 blood-glucose meter [Prodigy #1 kit 11/28/17 04/25/20 Autocode Meter] needle (disp) 21 G 21 gauge x 1 #90 ndl 02/02/20 04/25/20 1/2 glipizide 10 mg tablet 10 mg PO BID #180 tab 06/09/20 02/23/21 lancets 28 gauge #360 ea 09/01/20 blood sugar diagnostic #360 strip 09/05/20 sitagliptin 100 mg tablet 100 mg PO DAILY #90 tab 09/13/20 02/23/21 ezetimibe 10 mg tablet 10 mg PO DAILY #90 tab 10/12/20 02/23/21 omeprazole 20 mg capsule,delayed 20 mg PO DAILY #90 cap 12/12/20 02/23/21 release insulin glargine 100 unit/mL (3 80 unit SUBCUT DAILY #12 pen 01/15/21 02/23/21 mL) subcutaneous pen midodrine 1.25 mg PO DAILY 02/23/21 02/23/21 Previous Rx's Medication Instructions Recorded blood-glucose meter [Prodigy #1 kit 11/28/17 Autocode Meter] needle (disp) 21 G 21 gauge x 1 #90 ndl 02/02/20 1/2 glipizide 10 mg tablet 10 mg PO BID #180 tab 06/09/20 lancets 28 gauge #360 ea 09/01/20 blood sugar diagnostic #360 strip 09/05/20 sitagliptin 100 mg tablet 100 mg PO DAILY #90 tab 09/13/20 ezetimibe 10 mg tablet 10 mg PO DAILY #90 tab 10/12/20 omeprazole 20 mg capsule,delayed 20 mg PO DAILY #90 cap 12/12/20 release insulin glargine 100 unit/mL (3 80 unit SUBCUT DAILY #12 pen 01/15/21 mL) subcutaneous pen Allergies Allergy/AdvReac Type Severity Reaction Status Date / Time famotidine AdvReac Severe diarrhea Verified 02/23/21 12:28 metformin AdvReac Severe VOMITING/DI Verified 02/23/21 12:28 ZZINESS atorvastatin AdvReac Intermediate Verified 02/23/21 12:28 pravastatin AdvReac Intermediate myalgias Verified 02/23/21 12:28 simvastatin AdvReac Intermediate JOINT PAIN Verified 02/23/21 12:28 General Stated Complaint: GenMedical ASHKAN: 3 Review of Systems Narrative: Review of systems obtained x7 aside from where indicated in HPI [facility] Medical History (Updated 02/23/21 @ 15:01 by IMAN Michael) BPH associated with nocturia (06/16/18) CKD (chronic kidney disease) COPD (chronic obstructive pulmonary disease) Diabetic retinopathy severe; laser RX--blind OD Essential hypertension (08/05/13) Hypercholesterolemia Obesity Type II diabetes mellitus with neurological manifestations Surgical History History of cataract removal with insertion of prosthetic lens History of coronary artery bypass surgery Family History (Updated 11/15/20 @ 09:09 by Elizabeth Boo) Mother Heart disease Myocardial infarction CABG Father , 41 Myocardial infarction Sister Essential hypertension Maternal Grandmother Alzheimer disease Son No problems noted. Maternal Uncle Cancer Social History (Updated 11/15/20 @ 09:09 by Elizabeth Boo) Smoking/Tobacco Use Status: Former Tobacco Use Quit Date: 10/27/11 Tobacco: How many years used: 20 Second Hand Exposure: No Smoking risk assessment performed?: Yes Alcohol Intake: former Drug use: Never Substance use type: does not use Caregiver/Support person: No Household members: significant other Housing: house Communication Needs: None Do you need help understanding health information?: Never Pets and animals: Yes Pets and animals: cat(s) Sexually active: Yes Do you think of yourself as: straight/heterosexual Current gender identity: male What is your relationship status?: living with partner How often do you talk on the phone with friends or family?: three or more times per week How often do you get together with friends or relatives?: once per week How often do you attend buddhist or hindu services?: decline to answer Do you belong to any clubs or organized social groups?: no Panel score (0-1 are the most socially isolated patients): 2 What type of physical activity do you participate in: walking Duration: 15-30 minutes/day Frequency: 3-4 times per week Antonia/Taoism: None Special antonia needs: No Seatbelt use: always Helmet use: No Drive intox or ride w/intox transport driver: No Do you feel safe at home: Yes Do you feel safe in your relationship?: Yes Victim of physical abuse: No Victim of emotional abuse: No Victim of sexual abuse: No Would you like helpful sources: No Exam Const General: cooperative and no acute distress Eyes Pupils: PERRL EOM: EOM intact bilaterally Neck Other: No carotid bruits Chest Chest: normal inspection of the chest Resp Effort & Inspection: normal respiratory effort Auscultation: clear to auscultation bilaterally Cardio Rate: regular rate Rhythm: regular rhythm Skin General skin exam: no rashes or lesions noted Neuro General: patient alert and patient oriented x3 Cranial Nerves: CN's II-XI intact bilaterally Cognition: normal cognition Speech: speech normal Gait: normal gait Sensory Exam: no sensory deficits noted Extrem General: normal to inspection and capillary refill normal Other: No calf tenderness or swelling appreciated on exam Course Vital Signs Vital signs: Vital Signs Temperature 36.6 C 02/23/21 12:24 Pulse 87 02/23/21 12:24 Respiratory Rate 18 02/23/21 12:24 Blood Pressure 166/101 H 02/23/21 12:24 Pulse Oximetry 98 02/23/21 12:24 Temperature 36.6 C 02/23/21 12:24 Temperature Source Temporal Artery Scan 02/23/21 12:24 Pulse 87 02/23/21 12:24 Respiratory Rate 18 02/23/21 12:24 Respiratory Effort Non-Labored 02/23/21 12:31 Blood Pressure 166/101 H 02/23/21 12:24 Blood Pressure Position Sitting 02/23/21 12:24 Pulse Oximetry 98 02/23/21 12:24 Oxygen Delivery Method Room Air 02/23/21 12:24 Oxygen Flow Rate 0 02/23/21 12:24 Pain Level 0 02/23/21 12:24
[2021-02-23 13:55] LABS: Abs Immature Grans 0.08 10^3/uL (0.0-0.06); Absolute Eosinophil Count 0.26 10^3/uL (0.0-0.7); Absolute Lymphocyte Count 1.79 10^3/uL (1.2-3.4); Absolute Monocyte Count 0.89 10^3/uL (0.1-0.8); Absolute Neutrophil Count 7.25 10^3/uL (1.2-6.7); Eosinophils % 2.5; HCT 49.6 % (40.0-50.0); HGB 16.4 g/dL (13.5-17.5); Immature Grans % 0.8; Lymphocytes % 17.3; MCH 27.4 pg (27.0-33.0); MCHC 33.1 % (32.0-36.0); MCV 82.8 fL (80-95); MPV 10.2 fL (8.0-11.0); Monocytes % 8.6; Neutrophils % 69.8; Nucleated RBC 0 %; Platelet Count 231 10^3/uL (130-400); RBC 5.99 10^6/uL (4.36-5.78); RDW-SD 39.6 fL; WBC 10.37 10^3/uL (4.4-10.8)
[2021-02-23 14:20] LABS: ALT 32 U/L (16-63); AST 20 U/L (15-37); Albumin 3.8 g/dL (3.4-5.0); Alkaline Phosphatase 92 U/L (46-116); Anion Gap 8.8 mmol/L (3-11); BUN 22 mg/dL (7-18); Bilirubin, Total 0.9 mg/dL (0.2-1.0); CO2 29.2 mmol/L (21.0-32.0); CREATININE 1.7 mg/dL (0.70-1.30); Calcium 9.2 mg/dL (8.5-10.1); Chloride 101 mmol/L (98-107); Estimated GFR 41.75 (mL/min/1.73m2); Glucose 139 mg/dL (74-106); Potassium 4.1 mmol/L (3.5-5.1); Sodium 139 mmol/L (136-145); Total Protein 7.3 g/dL (6.4-8.2)
[2021-02-23 14:28] VITALS: BP 122/80; PULSE 78; RESP 16; TEMP 36.5; O2SAT 98
[2021-02-23 14:30] VITALS: RESP 16
== END 2021-02-23 15:09 | disposition home or self-care (01) ==
PROVIDERS: Emergency Provider Physician Assistant; PCP Emergency Medicine
DX: I10 Essential (primary) hypertension (principal); R20.2 Paresthesia of skin
CPT/HCPCS: 36415; 80053; 93005; 99284; 85025; 93010

== ENCOUNTER 2021-03-21 15:52 | Outpatient (REF) | payer MEDICARE, MEDICAID, SELFPAY ==
[2021-03-21 18:52] LABS: Anion Gap 9.1 mmol/L (3-11); BUN 25 mg/dL (7-18); CO2 26.9 mmol/L (21.0-32.0); CREATININE 1.9 mg/dL (0.70-1.30); Calcium 8.7 mg/dL (8.5-10.1); Chloride 100 mmol/L (98-107); Estimated GFR 36.72 (mL/min/1.73m2); Glucose 304 mg/dL (74-106); Potassium 4.5 mmol/L (3.5-5.1); Sodium 136 mmol/L (136-145)
[2021-03-21 18:57] LABS: Hemoglobin A1C 9.5 % (<5.7)
[2021-03-21 22:06] LABS: COMMENT (LAB VIEW ONLY) 70.33 mg/dL; Microalb ug/mg Crea 75.5 ug/mg Cr
== END 2021-03-21 15:53 | disposition home or self-care (01) ==
LOC: LBN 15:52
PROVIDERS: PCP Emergency Medicine; Visit Provider Emergency Medicine
DX: E11.9 Type 2 diabetes mellitus without complications (principal); I10 Essential (primary) hypertension
CPT/HCPCS: 80048; 82043; 82570; 83036

== ENCOUNTER 2021-06-06 03:37 | Outpatient (CLI) | payer MEDICARE, MEDICAID, SELFPAY ==
[2021-06-06 10:04] LABS: Abs Immature Grans 0.09 10^3/uL (0.0-0.06); Absolute Basophil Count 0.08 10^3/uL (0.0-0.2); Absolute Eosinophil Count 0.27 10^3/uL (0.0-0.7); Absolute Monocyte Count 0.99 10^3/uL (0.1-0.8); Absolute Neutrophil Count 5.99 10^3/uL (1.2-6.7); Basophils % 0.9; Eosinophils % 2.9; HCT 54.2 % (40.0-50.0); HGB 17.5 g/dL (13.5-17.5); Lymphocytes % 19.5; MCHC 32.3 % (32.0-36.0); MCV 83.6 fL (80-95); MPV 10.4 fL (8.0-11.0); Monocytes % 10.7; Nucleated RBC 0 %; Platelet Count 206 10^3/uL (130-400); RBC 6.48 10^6/uL (4.36-5.78); RDW 13.1 % (11.8-14.1); WBC 9.22 10^3/uL (4.4-10.8)
[2021-06-06 10:20] LABS: ALT 29 U/L (16-63); AST 15 U/L (15-37); Albumin 3.8 g/dL (3.4-5.0); Alkaline Phosphatase 85 U/L (46-116); Anion Gap 6.7 mmol/L (3-11); BUN 32 mg/dL (7-18); Bilirubin, Total 0.5 mg/dL (0.2-1.0); CO2 27.3 mmol/L (21.0-32.0); CREATININE 1.9 mg/dL (0.70-1.30); Calcium 9.2 mg/dL (8.5-10.1); Chloride 102 mmol/L (98-107); Estimated GFR 36.72 (mL/min/1.73m2); Glucose 233 mg/dL (74-106); LDH 124 U/L (85-227); Potassium 4.9 mmol/L (3.5-5.1); Sodium 136 mmol/L (136-145); Total Protein 7.4 g/dL (6.4-8.2)
== END 2021-06-06 03:38 | disposition home or self-care (01) ==
PROVIDERS: PCP Emergency Medicine; Visit Provider Internal Medicine Hematology & Oncology
DX: C83.30 Diffuse large B-cell lymphoma, unspecified site (principal)
CPT/HCPCS: 36415; 80053; 83615; 85025

== ENCOUNTER 2021-07-26 15:45 | Outpatient (REF) | payer MEDICARE, MEDICAID, SELFPAY ==
[2021-07-26 19:02] LABS: Calculated LDL 83 mg/dL (<100); Cholesterol 146 mg/dL (<200); HDL Cholesterol 39 mg/dL (40-60); Triglyceride 123 mg/dL (<150)
[2021-07-26 19:22] LABS: Hemoglobin A1C 10.1 % (<5.7)
== END 2021-07-26 15:46 | disposition home or self-care (01) ==
LOC: NCHCN 15:45
PROVIDERS: PCP Emergency Medicine; Visit Provider Emergency Medicine
DX: E11.9 Type 2 diabetes mellitus without complications (principal)
CPT/HCPCS: 80061; 83036

== ENCOUNTER 2021-10-18 03:37 | Outpatient (CLI) | payer MEDICARE, SELFPAY ==
[2021-10-18 11:25] LABS: Anion Gap 7.1 mmol/L (3-11); BUN 26 mg/dL (7-18); CO2 30.9 mmol/L (21.0-32.0); CREATININE 1.7 mg/dL (0.70-1.30); Calcium 9.5 mg/dL (8.5-10.1); Chloride 97 mmol/L (98-107); Estimated GFR 41.75 (mL/min/1.73m2); Glucose 230 mg/dL (74-106); Potassium 4.9 mmol/L (3.5-5.1); Sodium 135 mmol/L (136-145)
== END 2021-10-18 03:38 | disposition home or self-care (01) ==
LOC: LBO 03:38
PROVIDERS: PCP Emergency Medicine
DX: I50.22 Chronic systolic (congestive) heart failure (principal)
CPT/HCPCS: 36415; 80048

== ENCOUNTER 2021-11-29 03:12 | Outpatient (CLI) | payer MEDICARE, SELFPAY ==
[2021-11-29 10:05] LABS: Hemoglobin A1C 9.8 % (<5.7)
[2021-11-29 10:23] LABS: Anion Gap 9.9 mmol/L (3-11); BUN 30 mg/dL (7-18); CO2 26.1 mmol/L (21.0-32.0); CREATININE 1.7 mg/dL (0.70-1.30); Calcium 8.8 mg/dL (8.5-10.1); Chloride 101 mmol/L (98-107); Glucose 196 mg/dL (74-106); Potassium 4.8 mmol/L (3.5-5.1); Sodium 137 mmol/L (136-145)
== END 2021-11-29 03:13 | disposition home or self-care (01) ==
LOC: LBO 03:12
PROVIDERS: PCP Family Medicine; Visit Provider Emergency Medicine
DX: I10 Essential (primary) hypertension (principal); E11.9 Type 2 diabetes mellitus without complications
CPT/HCPCS: 36415; 80048; 83036

== ENCOUNTER 2021-12-19 16:26 | Outpatient (CLI) | payer MEDICARE, SELFPAY ==
[2021-12-19 14:08] LABS: Abs Immature Grans 0.09 10^3/uL (0.0-0.06); Absolute Basophil Count 0.14 10^3/uL (0.0-0.2); Absolute Lymphocyte Count 1.97 10^3/uL (1.2-3.4); Absolute Monocyte Count 0.72 10^3/uL (0.1-0.8); Absolute Neutrophil Count 7.24 10^3/uL (1.2-6.7); Basophils % 1.4; Eosinophils % 1.9; HCT 51.8 % (40.0-50.0); HGB 16.6 g/dL (13.5-17.5); Immature Grans % 0.9; MCH 27.1 pg (27.0-33.0); MCV 84.5 fL (80-95); MPV 10.1 fL (8.0-11.0); Monocytes % 6.9; Neutrophils % 69.9; Nucleated RBC 0 %; Platelet Count 229 10^3/uL (130-400); RBC 6.13 10^6/uL (4.36-5.78); RDW 13.1 % (11.8-14.1); RDW-SD 40.1 fL; WBC 10.36 10^3/uL (4.4-10.8)
[2021-12-19 14:24] LABS: ALT 24 U/L (16-63); AST 15 U/L (15-37); Albumin 3.8 g/dL (3.4-5.0); Alkaline Phosphatase 79 U/L (46-116); Anion Gap 9.1 mmol/L (3-11); BUN 30 mg/dL (7-18); Bilirubin, Total 0.5 mg/dL (0.2-1.0); CO2 25.9 mmol/L (21.0-32.0); CREATININE 1.8 mg/dL (0.70-1.30); Calcium 8.7 mg/dL (8.5-10.1); Chloride 100 mmol/L (98-107); Estimated GFR 38.95 (mL/min/1.73m2); Glucose 266 mg/dL (74-106); LDH 128 U/L (85-227); Potassium 4.6 mmol/L (3.5-5.1); Sodium 135 mmol/L (136-145); Total Protein 7.2 g/dL (6.4-8.2)
== END 2021-12-19 16:27 | disposition home or self-care (01) ==
LOC: LBO 16:27
PROVIDERS: PCP Family Medicine; Visit Provider Internal Medicine Hematology & Oncology
DX: C83.30 Diffuse large B-cell lymphoma, unspecified site (principal)
CPT/HCPCS: 36415; 80053; 83615; 85025

== ENCOUNTER 2021-12-21 03:59 | Outpatient (CLI) | payer MEDICARE, SELFPAY | END 2021-12-21 04:00 | disposition home or self-care (01) | LOC: LBO 03:59 | PROVIDERS: PCP Family Medicine; Visit Provider Internal Medicine Hematology & Oncology ==

== ENCOUNTER 2022-04-05 01:50 | Outpatient (CLI) | payer MEDICARE, SELFPAY ==
[2022-04-05 08:42] LABS: ALT 27 U/L (16-63); AST 14 U/L (15-37); Albumin 3.8 g/dL (3.4-5.0); Alkaline Phosphatase 82 U/L (46-116); Anion Gap 8.8 mmol/L (3-11); BUN 24 mg/dL (7-18); Bilirubin, Total 0.5 mg/dL (0.2-1.0); CO2 27.2 mmol/L (21.0-32.0); Calcium 9.2 mg/dL (8.5-10.1); Chloride 98 mmol/L (98-107); Estimated GFR 34.49 (mL/min/1.73m2); Glucose 253 mg/dL (74-106); LDH 137 U/L (85-227); Potassium 4.7 mmol/L (3.5-5.1); Sodium 134 mmol/L (136-145); Total Protein 7.5 g/dL (6.4-8.2)
== END 2022-04-05 01:51 | disposition home or self-care (01) ==
LOC: LBO 01:50
PROVIDERS: PCP Nurse Practitioner Family; Visit Provider Internal Medicine Hematology & Oncology
DX: C83.30 Diffuse large B-cell lymphoma, unspecified site (principal)
CPT/HCPCS: 36415; 80053; 83615

== ENCOUNTER 2022-04-10 02:28 | Outpatient (CLI) | payer MEDICARE, MEDICAID, SELFPAY ==
[2022-04-10 08:31] LABS: Abs Immature Grans 0.39 10^3/uL (0.0-0.06); Absolute Basophil Count 0.33 10^3/uL (0.0-0.2); Absolute Eosinophil Count 0.38 10^3/uL (0.0-0.7); Absolute Monocyte Count 0.99 10^3/uL (0.1-0.8); Basophils % 2.7; Eosinophils % 3.1; HCT 52.5 % (40.0-50.0); HGB 17.3 g/dL (13.5-17.5); Immature Grans % 3.2; Lymphocytes % 18.2; MCH 27.9 pg (27.0-33.0); MCV 85 fL (80-95); MPV 9.9 fL (8.0-11.0); Monocytes % 8.1; Neutrophils % 64.7; Platelet Count 224 10^3/uL (130-400); RBC 6.21 10^6/uL (4.36-5.78); RDW-SD 42.7 fL; WBC 12.17 10^3/uL (4.4-10.8)
[2022-04-10 08:32] LABS: Absolute Lymphocyte Count 2.21 10^3/uL (1.2-3.4); Absolute Neutrophil Count 7.87 10^3/uL (1.2-6.7)
[2022-04-10 08:45] LABS: ALT 27 U/L (16-63); AST 16 U/L (15-37); Albumin 3.9 g/dL (3.4-5.0); Alkaline Phosphatase 72 U/L (46-116); Anion Gap 8.8 mmol/L (3-11); BUN 33 mg/dL (7-18); Bilirubin, Total 0.5 mg/dL (0.2-1.0); CO2 27.2 mmol/L (21.0-32.0); Calcium 8.9 mg/dL (8.5-10.1); Chloride 99 mmol/L (98-107); Estimated GFR 34.49 (mL/min/1.73m2); Glucose 180 mg/dL (74-106); Potassium 4.3 mmol/L (3.5-5.1); Sodium 135 mmol/L (136-145); Total Protein 7.1 g/dL (6.4-8.2)
[2022-04-10 09:06] LABS: LDH 147 U/L (85-227)
== END 2022-04-10 02:29 | disposition home or self-care (01) ==
LOC: LBO 02:28
PROVIDERS: PCP Nurse Practitioner Family; Visit Provider Internal Medicine Hematology & Oncology
DX: C83.38 Diffuse large B-cell lymphoma, lymph nodes of multiple sites (principal)
CPT/HCPCS: 36415; 80053; 83615; 85025

== ENCOUNTER 2022-09-10 10:36 | Outpatient (REF) | payer MEDICARE, SELFPAY ==
[2022-09-10 13:00] LABS: Anion Gap 5.9 mmol/L (3-11); BUN 26 mg/dL (7-18); CO2 30.1 mmol/L (21.0-32.0); Calcium 9.5 mg/dL (8.5-10.1); Chloride 99 mmol/L (98-107); Estimated GFR 37.97 (mL/min/1.73m2); Glucose 226 mg/dL (74-106); Potassium 4.8 mmol/L (3.5-5.1); Sodium 135 mmol/L (136-145)
== END 2022-09-10 10:37 | disposition home or self-care (01) ==
LOC: LBN 10:36
PROVIDERS: PCP Nurse Practitioner Family; Visit Provider Physician Assistant
DX: R39.198 Other difficulties with micturition
CPT/HCPCS: 80048; 85025

== ENCOUNTER 2022-09-10 13:59 | Outpatient (REF) | payer MEDICARE, SELFPAY ==
[2022-09-10 21:53] LABS: Bilirubin Negative (Negative); Blood Negative (Negative); Clarity Clear (Clear); Glucose 100 mg/dL (Negative); Ketones Negative (Negative); Leukocyte Esterase Negative (Negative); Nitrite Negative (Negative); Urobilinogen 0.2 EU/dL (Up TO 0.2)
== END 2022-09-10 14:00 | disposition home or self-care (01) ==
LOC: LBN 13:59
PROVIDERS: PCP Nurse Practitioner Family; Visit Provider Physician Assistant
DX: R39.9 Unspecified symptoms and signs involving the genitourinary system (principal)
CPT/HCPCS: 81003

== ENCOUNTER 2022-10-11 01:03 | Outpatient (CLI) | payer MEDICARE, SELFPAY ==
[2022-10-11 09:26] LABS: Absolute Basophil Count 1.46 10^3/uL (0.0-0.2); Absolute Eosinophil Count 0.67 10^3/uL (0.0-0.7); Absolute Neutrophil Count 15.58 10^3/uL (1.2-6.7); Basophils % 6.1; Eosinophils % 2.8; HCT 55.1 % (40.0-50.0); Immature Grans % 10.4; Lymphocytes % 10.6; MCH 28.1 pg (27.0-33.0); MCHC 32.7 % (32.0-36.0); MCV 86 fL (80-95); MPV 9.9 fL (8.0-11.0); Neutrophils % 65.1; Platelet Count 347 10^3/uL (130-400); RDW 15.3 % (11.8-14.1); WBC 23.93 10^3/uL (4.4-10.8)
[2022-10-11 09:30] LABS: Absolute Lymphocyte Count 2.54 10^3/uL (1.2-3.4)
[2022-10-11 09:38] LABS: Diff Comment Diff Reviewed; RBC Morphology Normal
[2022-10-11 09:48] LABS: ALT 23 U/L (16-63); AST 18 U/L (15-37); Albumin 4.1 g/dL (3.4-5.0); Alkaline Phosphatase 72 U/L (46-116); Anion Gap 5.3 mmol/L (3-11); BUN 28 mg/dL (7-18); Bilirubin, Total 0.6 mg/dL (0.2-1.0); CO2 30.7 mmol/L (21.0-32.0); Calcium 9.4 mg/dL (8.5-10.1); Chloride 98 mmol/L (98-107); Estimated GFR 37.97 (mL/min/1.73m2); Glucose 174 mg/dL (74-106); LDH 191 U/L (85-227); Potassium 4.9 mmol/L (3.5-5.1); Sodium 134 mmol/L (136-145); Total Protein 7.5 g/dL (6.4-8.2)
== END 2022-10-11 01:04 | disposition home or self-care (01) ==
LOC: LBO 01:04
PROVIDERS: PCP Nurse Practitioner Family; Visit Provider Internal Medicine Hematology & Oncology
DX: C83.30 Diffuse large B-cell lymphoma, unspecified site (principal)
CPT/HCPCS: 36415; 80053; 83615; 85025

== ENCOUNTER 2022-11-05 03:16 | Outpatient (CLI) | payer MEDICARE, SELFPAY ==
[2022-11-05 09:11] LABS: Abs Immature Grans 4.34 10^3/uL (0.0-0.06); HCT 54.1 % (40.0-50.0); HGB 17.8 g/dL (13.5-17.5); MCH 28.4 pg (27.0-33.0); MCHC 32.9 % (32.0-36.0); MCV 86 fL (80-95); MPV 10.6 fL (8.0-11.0); RDW 15.2 % (11.8-14.1)
[2022-11-05 09:39] LABS: ALT 19 U/L (16-63); AST 15 U/L (15-37); Albumin 4.1 g/dL (3.4-5.0); Alkaline Phosphatase 74 U/L (46-116); BUN 29 mg/dL (7-18); Bilirubin, Total 0.6 mg/dL (0.2-1.0); CREATININE 2.1 mg/dL (0.70-1.30); Chloride 98 mmol/L (98-107); Estimated GFR 35.81 (mL/min/1.73m2); Glucose 252 mg/dL (74-106); LDH 229 U/L (85-227); PHOSPHORUS 3.2 mg/dL (2.6-4.7); Potassium 4.7 mmol/L (3.5-5.1); Sodium 134 mmol/L (136-145); Total Protein 7.8 g/dL (6.4-8.2)
[2022-11-05 09:46] LABS: Absolute Eosinophil Count 0.56 10^3/uL (0.0-0.7); Absolute Lymphocyte Count 2.81 10^3/uL (1.2-3.4); Absolute Monocyte Count 2.52 10^3/uL (0.1-0.8); Absolute Neutrophil Count 20.76 10^3/uL (1.2-6.7); Diff Comment Manual Differential; Platelet Count 381 10^3/uL (130-400); RBC Morphology Normal
[2022-11-05 09:47] LABS: RBC 6.27 10^6/uL (4.36-5.78)
[2022-11-05 09:50] LABS: WBC 28.05 10^3/uL (4.4-10.8)
[2022-11-05 10:28] LABS: Vitamin D 25 Total 20.8 ng/mL (30-100)
== END 2022-11-05 03:17 | disposition home or self-care (01) ==
LOC: LBO 03:16
PROVIDERS: PCP Nurse Practitioner Family; Visit Provider Internal Medicine Hematology & Oncology
DX: N18.30 Chronic kidney disease, stage 3 unspecified (principal); C83.30 Diffuse large B-cell lymphoma, unspecified site; N28.9 Disorder of kidney and ureter, unspecified
CPT/HCPCS: 36415; 80053; 82306; 83615; 84100; 85025

== ENCOUNTER 2022-11-13 03:13 | Outpatient (CLI) | payer MEDICARE, SELFPAY ==
[2022-11-13 08:19] LABS: HCT 52.5 % (40.0-50.0); HGB 17.5 g/dL (13.5-17.5); MCH 28.5 pg (27.0-33.0); MCHC 33.3 % (32.0-36.0); MCV 86 fL (80-95); MPV 10.3 fL (8.0-11.0); Platelet Count 388 10^3/uL (130-400); RBC 6.14 10^6/uL (4.36-5.78); RDW 15.2 % (11.8-14.1); RDW-SD 46.9 fL
[2022-11-13 08:32] LABS: Absolute Eosinophil Count 1.02 10^3/uL (0.0-0.7); Absolute Lymphocyte Count 2.37 10^3/uL (1.2-3.4); Absolute Monocyte Count 2.03 10^3/uL (0.1-0.8); Absolute Neutrophil Count 24.36 10^3/uL (1.2-6.7); Atypical Lymphocytes % 4; Bands % 5
[2022-11-13 08:33] LABS: Absolute Basophil Count 2.03 10^3/uL (0.0-0.2); Diff Comment Manual Differential; Metamyelocytes % 5; Myelocytes % 1; RBC Morphology Normal
[2022-11-13 08:38] LABS: WBC 33.84 10^3/uL (4.4-10.8)
[2022-11-13 08:39] LABS: ALT 23 U/L (16-63); AST 18 U/L (15-37); Albumin 4.1 g/dL (3.4-5.0); Alkaline Phosphatase 68 U/L (46-116); Anion Gap -3.1 mmol/L (3-11); BUN 29 mg/dL (7-18); Bilirubin, Total 0.8 mg/dL (0.2-1.0); CO2 30.1 mmol/L (21.0-32.0); CREATININE 2.1 mg/dL (0.70-1.30); Calcium 9.2 mg/dL (8.5-10.1); Chloride 94 mmol/L (98-107); Estimated GFR 35.81 (mL/min/1.73m2); Glucose 200 mg/dL (74-106); LDH 228 U/L (85-227); PHOSPHORUS 3.2 mg/dL (2.6-4.7); Potassium 4.1 mmol/L (3.5-5.1); Total Protein 7.6 g/dL (6.4-8.2)
[2022-11-13 08:50] LABS: Sodium 121 mmol/L (136-145)
[2022-11-13 09:23] LABS: Vitamin D 25 Total 20.7 ng/mL (30-100)
== END 2022-11-13 03:14 | disposition home or self-care (01) ==
LOC: LBO 03:13
PROVIDERS: Nurse Practitioner Adult Health; PCP Nurse Practitioner Family; Visit Provider Internal Medicine Hematology & Oncology
DX: N28.89 Other specified disorders of kidney and ureter (principal); C83.30 Diffuse large B-cell lymphoma, unspecified site; N18.30 Chronic kidney disease, stage 3 unspecified
CPT/HCPCS: 36415; 80053; 82306; 83615; 84100; 85025

== ENCOUNTER 2022-11-13 09:45 | Emergency (ER) | payer MEDICARE, SELFPAY ==
[2022-11-13] VITALS (11 sets, daily range): BP systolic 127–164; BP diastolic 79–98; PULSE 87–93; RESP 9–15; TEMP 36.6; O2SAT 98
--- NOTE | 2022-11-13 10:00 | DI.RAD_ITS ---
Exam(s) XR CHEST 2V PA LATERAL EXAM: XR CHEST 2V PA LATERAL CLINICAL HISTORY: ?pneumonia. TECHNIQUE: 2D digital imaging was performed. COMPARISON: No exams were available for comparison FINDINGS: 2 views: Sternotomy wires again noted and evidence of previous CABG. Heart size is normal. The mediastinum is not widened. Lungs are clear. No infiltrates nor pleural effusions. IMPRESSION: No acute pulmonary findings. Sternotomy wires. No cardiomegaly. No pulmonary edema. DATA REPOSITORY: RADIATION DOSE DELIVERED:
--- NOTE | 2022-11-13 10:12 | ED.GENADUL_ITS ---
Discharge Plan Disposition Patient Disposition: Home Condition: Stable Discharge Details Clinical Impression: Hyponatremia, Leukocytosis Primary Care Provider: William Meza ED Provider: Jose Conley Home Meds and New Rx's Prescriptions: Continued ASPIRIN 81 MG tablet 1 tab PO DAILY (DME) blood-glucose meter [[employer] Autocode Meter] 1 EACH kit 1 ea Miscellaneous QID Qty: 1 0RF (DME) BD Regular Bevel [place] 21 gauge x 1 1/2 needle 1 ea Miscellaneous DAILY Qty: 90 12RF Rx Instructions: E11.9; 8 mm needles (DME) lancets [ProdTangerine Powery Lancets] 28 gauge misc 1 ea Miscellaneous QID Qty: 360 4RF Rx Instructions: test 6x daily (DME) Blood Glucose Test Strip 1 ea Miscellaneous QID Qty: 360 3RF Rx Instructions: test 4x daily (DME) NovoFine Plus 32 gauge x 1/6 needle See Rx Instructions .Route Qty: 100 4RF Rx Instructions: As directed omeprazole 20 mg capsule,delayed release(DR/EC) 20 mg PO DAILY Qty: 90 3RF ezetimibe [Zetia] 10 mg tablet 10 mg PO DAILY Qty: 90 3RF glipizide 10 mg tablet 10 mg PO BID Qty: 180 4RF (DME) pen needle, diabetic [BD Ultra-Fine Short Pen Needle] 31 gauge x 5/16 needle See Rx Instructions .ROUTE .MEDSUPPLY Qty: 100 8RF Rx Instructions: As directed. Use once daily. E11.9 Ozempic 1 mg/dose (4 mg/3 mL) pen injector 1 mg subcut QWEEK Qty: 3 3RF insulin glargine [Basaglar KwikPen U-100 Insulin] 100 unit/mL (3 mL) insulin pen 50 unit subcut DAILY Rx Instructions: dispense 12 pens each refill Discharge Instructions Instructions: Hyponatremia (ED) Additional Instructions: There may have been an error with your first sodium level, your level in the emergency department was mildly low you can try drinking pedialyte or other oral liquid with salt in it follow up with your oncologist if you feel more ill, have fevers or difficulty breathing return to the emergency department Medical Decision Making 56 yo male with hx of b cell lymphoma in remission, DM, gerd, who comes in after he was found to have a sodium level of 121 on labs done through the cancer center. He has had a leukocytosis as well for a month and today is 33. He denies any symptoms, no weakness, fatigue, urinary symptoms, abdominal pain, he states he otherwise feels well. He states he has been drinking more water then normal the past few days. HE arrives stable, caox4 in no distress. He has clear lungs, no murmurs, no leg swelling, soft nontender abdomen. He appears euvolemic on exam. Unclear exact etiology for his hyponatremia, will repeat cmp and also obtain urine to evaluate urine sodium and reassess. Given lack of fevers, chills or other symptoms doubt infectious etiology for his leukocytosis, will obtain procalcitonin. sodium now 129 despite him not taking any oral food or drinks so suspect earlier one could have been lab error. Negative procalcitonin and given lack of other symptoms doubt infectious etology for leukocytosis. HE is stable for d/c, advsed to f/u with his oncologist and return precautions given Differential Diagnosis Differential Diagnosis: excessive water intake, siadh, Medical Records Medical records reviewed: Yes I reviewed the patient's medical records. Imaging Data Radiologic Study: Attestation: I personally reviewed and interpreted this imaging study as follows: Imaging: X-Ray Radiologist's impression: no acute findings Lab Data Lab results reviewed: Yes I reviewed the patient's lab results. HPI General Mode of arrival: ambulatory . Date/Time Provider Initiated Documentation: 11/13/22 09:47 . Limitations to Documentation: no limitations . Information obtained by: patient . History of Present Illness 56 year old M presents to the emergency department with the chief complaint of low sodium, Patient started experiencing this month(s) (1) and it has been constant. No relieving factors improve symptom(s), No exacerbating factors reported . Patient notes no other symptoms.. Patient did receive the following treatments prior to arrival, none Related Data Home Medications Medication Instructions Recorded Confirmed Aspirin 1 tab PO DAILY 02/01/13 11/13/22 blood-glucose meter (Prodigy ##1 11/28/17 09/17/22 Autocode Meter kit) needle (disp) 21 G 21 gauge x 1 ##90 02/02/20 09/17/22/2 (BD Regular Bevel [place]) lancets 28 gauge (Prodigy Lancets) #360 ea 10/25/21 09/17/22 blood sugar diagnostic (Blood #360 strips 11/01/21 09/17/22 Glucose Test strips) pen needle, diabetic 32 gauge x #100 ea 01/15/22 09/17/22 1/6 (NovoFine Plus) omeprazole 20 mg capsule,delayed 20 mg PO DAILY #90 caps 03/06/22 11/13/22 release ezetimibe 10 mg tablet (Zetia) 10 mg PO DAILY #90 tabs 08/22/22 11/13/22 glipizide 10 mg tablet 10 mg PO BID #180 tabs 08/29/22 11/13/22 pen needle, diabetic 31 gauge x #100 ea 10/23/22 5/16 (BD Ultra-Fine Short Pen Needle) semaglutide 1 mg/dose (4 mg/3 mL) 1 mg (0.75 mL) subcut QWEEK #3 mL 10/23/22 11/13/22 subcutaneous pen injector ([employer]ogenic [employer]agentsic) insulin glargine 100 unit/mL (3 50 unit subcut DAILY 11/13/22 11/13/22 mL) subcutaneous pen (Basaglar KwikPen U-100 Insulin) Previous Rx's Medication Instructions Recorded blood-glucose meter (Prodigy ##1 11/28/17 Autocode Meter kit) needle (disp) 21 G 21 gauge x 1 ##90 02/02/20 1 (BD Regular Bevel [place]) lancets 28 gauge (Prodigy Lancets) #360 ea 10/25/21 blood sugar diagnostic (Blood #360 strips 11/01/21 Glucose Test strips) pen needle, diabetic 32 gauge x #100 ea 01/15/22 1/6 (NovoFine Plus) omeprazole 20 mg capsule,delayed 20 mg PO DAILY #90 caps 03/06/22 release ezetimibe 10 mg tablet (Zetia) 10 mg PO DAILY #90 tabs 08/22/22 glipizide 10 mg tablet 10 mg PO BID #180 tabs 08/29/22 pen needle, diabetic 31 gauge x #100 ea 10/23/22 5/16 (BD Ultra-Fine Short Pen Needle) semaglutide 1 mg/dose (4 mg/3 mL) 1 mg (0.75 mL) subcut QWEEK #3 mL 10/23/22 subcutaneous pen injector (Ozempic) Allergies Allergy/AdvReac Type Severity Reaction Status Date / Time famotidine AdvReac Severe diarrhea Verified 11/13/22 09:52 metformin AdvReac Severe VOMITING/DI Verified 11/13/22 09:52 ZZINESS atorvastatin AdvReac Intermediate Verified 11/13/22 09:52 pravastatin AdvReac Intermediate myalgias Verified 11/13/22 09:52 simvastatin AdvReac Intermediate JOINT PAIN Verified 11/13/22 09:52 lidocaine AdvReac Unknown Does not Unverified 11/13/22 09:52 work on Patient procaine [From Novocain] AdvReac Unknown Does not Unverified 11/13/22 09:52 work on Patient General Stated Complaint: GenMedical ASHKAN: 3 Review of Systems All systems reviewed & are unremarkable except as noted in HPI and below Constitutional Constitutional: Denies chills, Denies fever(s) and Denies weakness Cardiovascular Cardiovascular: Denies chest pain and Denies dyspnea Respiratory Respiratory: Denies cough and Denies dyspnea Gastrointestinal Gastrointestinal: Denies abdominal pain, Denies nausea and Denies vomiting Genitourinary Genitourinary: Denies dysuria Musculoskeletal Musculoskeletal: Denies joint swelling Integumentary/Breasts Skin/Breast: Denies rash Neurologic Neurologic: Denies weakness PFSH All Active Problems (Updated 11/13/22 @ 12:16 by Jose Conley MD) Hyponatremia (Acute) Leukocytosis (Acute) Nail dystrophy (Acute) Hyperlipidemia (Acute) Chronic kidney disease, stage 3 (Acute) 2021- Cr-1.8 Nicotine dependence (Acute) quit about 2012, about 15 pk yr Polycythemia (Acute) 2021- Hct-51 Coronary artery disease (Chronic) About 2010-s/p CABG x 3 [facility]-by cardiology at [facility] 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, followed by oncology at [facility], in remission as of 01/2022 Afib (Acute) 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) Obesity (Chronic) Essential hypertension (Chronic 08/05/13) Very labile, history after chemotherapy of hypotension Diabetic retinopathy (Chronic) severe; laser RX--blind OD BPH associated with nocturia (Chronic 06/16/18) Diabetic neuropathy (Acute) b/l feet, history of diabetic foot ulcer, followed by podiatry Blindness, one eye (Acute) right-diabetic retinopathy left eye Medical History Abdominal pain Blindness, one eye right-diabetic retinopathy Colonoscopy refused (06/16/18) Discharge planning issues DVT prophylaxis Elevated blood pressure reading Nausea and vomiting Surgical History History of cataract removal with insertion of prosthetic lens History of coronary artery bypass surgery Family History Mother Heart disease Myocardial infarction CABG Father , 41 Myocardial infarction Sister Essential hypertension Maternal Grandmother Alzheimer disease Son No problems noted. Maternal Uncle Cancer Social History Smoking/Tobacco Use Status: Former Tobacco Use tobacco type: cigarettes Quit Date: 10/27/11 Tobacco: How many years used: 20 Second Hand Exposure: Yes Smoking risk assessment performed?: Yes Alcohol Intake: current Alcohol Intake frequency: holidays/special occasions only Alcohol type: beer Drug use: Never Substance use type: does not use Caregiver/Support person: No Household members: significant other Housing: house Do you need help understanding health information?: Never Pets and animals: Yes Pets and animals: cat(s) Sexually active: No Do you think of yourself as: straight/heterosexual Current gender identity: male What is your relationship status?: living with partner How often do you talk on the phone with friends or family?: three or more times per week How often do you get together with friends or relatives?: once per week How often do you attend christian or gnosticism services?: 1-3 times per year Do you belong to any clubs or organized social groups?: no Panel score (0-1 are the most socially isolated patients): 2 What type of physical activity do you participate in: walking Duration: 15-30 minutes/day Frequency: 3-4 times per week Antonia/Judaism: None Special antonia needs: No Seatbelt use: always Helmet use: No Drive intox or ride w/intox hazardous materials tanker driver: No Do you feel safe at home: Yes Do you feel safe in your relationship?: Yes Victim of physical abuse: No Victim of emotional abuse: No Victim of sexual abuse: No Would you like helpful sources: No Exam Const General: no acute distress Orientation: alert HENMT Head: normal to inspection Ears: external ears normal General nose exam: external nose normal Mouth: moist mucous membranes Eyes General: appearance normal, both eyes and all related structures Neck Neck: normal visual inspection Resp Effort & Inspection: normal respiratory effort and able to speak in complete sentences Auscultation: clear to auscultation bilaterally Cardio Rate: regular rate Heart Sounds: no murmurs GI Palpation: soft and nontender Skin General skin exam: no rashes or lesions noted Neuro General: patient alert and patient oriented x3 Extrem General: normal to inspection Psych Mental Status: mental status grossly normal Course Vital Signs Vital signs: Vital Signs Temperature 36.6 C 11/13/22 09:48 Pulse 93 H 11/13/22 09:48 Respiratory Rate 15 11/13/22 09:48 Blood Pressure 164/98 H 11/13/22 09:48 Pulse Oximetry 98 11/13/22 09:48 Temperature 36.6 C 11/13/22 09:48 Temperature Source Skin 11/13/22 09:48 Pulse 93 H 11/13/22 09:48 Respiratory Rate 15 11/13/22 09:48 Respiratory Effort 11/13/22 09:52 Blood Pressure 164/98 H 11/13/22 09:48 Blood Pressure Position Supine 11/13/22 09:48 Pulse Oximetry 98 11/13/22 09:48 Oxygen Delivery Method Room Air 11/13/22 09:48 Oxygen Flow Rate 0 11/13/22 09:48 Pain Level 0 11/13/22 09:48
[2022-11-13 10:58] LABS: HCT 54.1 % (40.0-50.0); HGB 17.7 g/dL (13.5-17.5); MCH 28.3 pg (27.0-33.0); MCHC 32.7 % (32.0-36.0); MCV 86 fL (80-95); MPV 10.3 fL (8.0-11.0); Platelet Count 386 10^3/uL (130-400); RBC 6.26 10^6/uL (4.36-5.78); RDW 14.9 % (11.8-14.1); RDW-SD 46.8 fL
[2022-11-13 11:01] LABS: WBC 34.04 10^3/uL (4.4-10.8)
[2022-11-13 11:09] LABS: Absolute Eosinophil Count 0.68 10^3/uL (0.0-0.7); Absolute Lymphocyte Count 3.06 10^3/uL (1.2-3.4); Absolute Monocyte Count 2.04 10^3/uL (0.1-0.8); Absolute Neutrophil Count 23.83 10^3/uL (1.2-6.7); Atypical Lymphocytes % 3; Bands % 8; Diff Comment Manual Differential; Metamyelocytes % 7; Myelocytes % 1; RBC Morphology Normal
[2022-11-13 11:30] LABS: ALT 25 U/L (16-63); AST 20 U/L (15-37); Albumin 4.3 g/dL (3.4-5.0); Alkaline Phosphatase 67 U/L (46-116); Anion Gap 2.2 mmol/L (3-11); BUN 30 mg/dL (7-18); Bilirubin, Total 0.8 mg/dL (0.2-1.0); CO2 28.8 mmol/L (21.0-32.0); CREATININE 1.9 mg/dL (0.70-1.30); Calcium 9.6 mg/dL (8.5-10.1); Chloride 98 mmol/L (98-107); Estimated GFR 40.38 (mL/min/1.73m2); Glucose 132 mg/dL (74-106); Potassium 4.4 mmol/L (3.5-5.1); Sodium 129 mmol/L (136-145); TSH (W/Ref FT4) 1.31 uIU/mL (0.36-3.74); Total Protein 7.8 g/dL (6.4-8.2)
[2022-11-13 11:31] LABS: Bilirubin Negative (Negative); Blood Negative (Negative); Clarity Clear (Clear); Glucose Negative (Negative); Ketones Negative (Negative); Leukocyte Esterase Negative (Negative); Nitrite Negative (Negative); Specific Gravity 1.015 (1.005-1.025); Urobilinogen 0.2 EU/dL (Up TO 0.2); pH 5.5 (5-8)
[2022-11-13 11:35] LABS: Procalcitonin < 0.1 ng/mL
[2022-11-13 11:38] LABS: Sodium, Urine 51 mmol/L
[2022-11-21 12:40] LABS: BCRABL Fusion(210,190,205,230) 210; Specimen Type EDTA Whole Blood
[2022-11-21 16:19] LABS: Misc Referral (MAYO) See Comments
== END 2022-11-13 12:26 | disposition home or self-care (01) ==
PROVIDERS: Emergency Provider Emergency Medicine; PCP Nurse Practitioner Family
DX: E87.1 Hypo-osmolality and hyponatremia (principal); D72.829 Elevated white blood cell count, unspecified; E11.9 Type 2 diabetes mellitus without complications; Z79.4 Long term (current) use of insulin; Z79.84 Long term (current) use of oral hypoglycemic drugs; Z79.82 Long term (current) use of aspirin
CPT/HCPCS: 36415; 80053; 81170; 81206; 81207; 81208; 82306; 84145; 99283; 71046; 81003; 83615; 83735; 84100; 84300; 84443; 85025; 99282

== ENCOUNTER 2022-12-11 01:44 | Outpatient (CLI) | payer MEDICARE, SELFPAY ==
[2022-12-11 07:38] LABS: Abs Immature Grans 8.73 10^3/uL (0.0-0.06); HCT 51.8 % (40.0-50.0); HGB 17.2 g/dL (13.5-17.5); MCH 28.9 pg (27.0-33.0); MCHC 33.2 % (32.0-36.0); MCV 87 fL (80-95); MPV 10.4 fL (8.0-11.0); RBC 5.96 10^6/uL (4.36-5.78); RDW 15.1 % (11.8-14.1); RDW-SD 47.5 fL
[2022-12-11 07:55] LABS: ALT 24 U/L (16-63); AST 19 U/L (15-37); Albumin 4.1 g/dL (3.4-5.0); Alkaline Phosphatase 83 U/L (46-116); Anion Gap 6.7 mmol/L (3-11); BUN 28 mg/dL (7-18); Bilirubin, Total 0.5 mg/dL (0.2-1.0); CO2 30.3 mmol/L (21.0-32.0); CREATININE 1.9 mg/dL (0.70-1.30); Calcium 9.5 mg/dL (8.5-10.1); Chloride 96 mmol/L (98-107); Estimated GFR 40.13 (mL/min/1.73m2); Glucose 261 mg/dL (74-106); LDH 308 U/L (85-227); PHOSPHORUS 3.2 mg/dL (2.6-4.7); Potassium 4.7 mmol/L (3.5-5.1); Sodium 133 mmol/L (136-145); Total Protein 7.5 g/dL (6.4-8.2)
[2022-12-11 08:00] LABS: Absolute Lymphocyte Count 5.11 10^3/uL (1.2-3.4); Absolute Monocyte Count 2.13 10^3/uL (0.1-0.8); Absolute Neutrophil Count 24.29 10^3/uL (1.2-6.7); Atypical Lymphocytes % 2; Bands % 7; Platelet Count 432 10^3/uL (130-400)
[2022-12-11 08:01] LABS: Absolute Basophil Count 5.54 10^3/uL (0.0-0.2); Absolute Eosinophil Count 2.13 10^3/uL (0.0-0.7)
[2022-12-11 08:02] LABS: Diff Comment Manual Differential; Metamyelocytes % 7; Myelocytes % 1; RBC Morphology Normal
[2022-12-11 08:08] LABS: WBC 42.62 10^3/uL (4.4-10.8)
[2022-12-11 08:26] LABS: Vitamin D 25 Total 21.6 ng/mL (30-100)
== END 2022-12-11 01:45 | disposition home or self-care (01) ==
LOC: LBO 01:44
PROVIDERS: PCP Nurse Practitioner Family; Visit Provider Internal Medicine Hematology & Oncology
DX: C83.38 Diffuse large B-cell lymphoma, lymph nodes of multiple sites (principal); N28.9 Disorder of kidney and ureter, unspecified; N18.30 Chronic kidney disease, stage 3 unspecified
CPT/HCPCS: 36415; 80053; 82306; 83615; 84100; 85025

== ENCOUNTER 2023-01-15 12:26 | Outpatient (CLI) | payer MEDICARE, SELFPAY ==
[2023-01-15 09:10] LABS: Abs Immature Grans 3.94 10^3/uL (0.0-0.06); HCT 48.7 % (40.0-50.0); HGB 16.1 g/dL (13.5-17.5); MCH 29.1 pg (27.0-33.0); MCHC 33.1 % (32.0-36.0); MCV 88 fL (80-95); MPV 10.6 fL (8.0-11.0); Platelet Count 369 10^3/uL (130-400); RBC 5.54 10^6/uL (4.36-5.78); RDW 15.6 % (11.8-14.1); RDW-SD 50.8 fL
[2023-01-15 09:28] LABS: ALT 24 U/L (16-63); AST 18 U/L (15-37); Albumin 3.9 g/dL (3.4-5.0); Alkaline Phosphatase 74 U/L (46-116); Anion Gap 5.4 mmol/L (3-11); BUN 28 mg/dL (7-18); Bilirubin, Total 0.8 mg/dL (0.2-1.0); CO2 28.6 mmol/L (21.0-32.0); CREATININE 2.3 mg/dL (0.70-1.30); Calcium 8.8 mg/dL (8.5-10.1); Chloride 103 mmol/L (98-107); Estimated GFR 31.91 (mL/min/1.73m2); Glucose 173 mg/dL (74-106); Potassium 5.4 mmol/L (3.5-5.1); Sodium 137 mmol/L (136-145); Total Protein 7.2 g/dL (6.4-8.2)
[2023-01-15 09:43] LABS: WBC 28.64 10^3/uL (4.4-10.8)
[2023-01-15 09:44] LABS: Absolute Basophil Count 1.15 10^3/uL (0.0-0.2); Absolute Eosinophil Count 1.72 10^3/uL (0.0-0.7); Absolute Lymphocyte Count 2.58 10^3/uL (1.2-3.4); Absolute Neutrophil Count 20.05 10^3/uL (1.2-6.7); Bands % 4; Diff Comment Manual Differential; Metamyelocytes % 2; Myelocytes % 2; RBC Morphology Normal
== END 2023-01-15 12:27 | disposition home or self-care (01) ==
LOC: LBO 12:27
PROVIDERS: PCP Nurse Practitioner Family; Visit Provider Nurse Practitioner Adult Health
DX: N28.9 Disorder of kidney and ureter, unspecified (principal)
CPT/HCPCS: 36415; 80053; 85025

== ENCOUNTER 2023-01-29 03:26 | Outpatient (CLI) | payer MEDICARE, SELFPAY ==
[2023-01-29 13:35] LABS: Abs Immature Grans 0.06 10^3/uL (0.0-0.06); Absolute Basophil Count 0.28 10^3/uL (0.0-0.2); Absolute Eosinophil Count 0.44 10^3/uL (0.0-0.7); Absolute Lymphocyte Count 1.37 10^3/uL (1.2-3.4); Absolute Monocyte Count 0.46 10^3/uL (0.1-0.8); Absolute Neutrophil Count 5.77 10^3/uL (1.2-6.7); Basophils % 3.3; Eosinophils % 5.3; HCT 43.5 % (40.0-50.0); Immature Grans % 0.7; Lymphocytes % 16.3; MCH 28.6 pg (27.0-33.0); MCHC 32.2 % (32.0-36.0); MCV 89 fL (80-95); MPV 10.3 fL (8.0-11.0); Monocytes % 5.5; Neutrophils % 68.9; Platelet Count 287 10^3/uL (130-400); RDW 15.6 % (11.8-14.1); RDW-SD 50.6 fL; WBC 8.38 10^3/uL (4.4-10.8)
[2023-01-29 14:06] LABS: ALT 23 U/L (16-63); AST 18 U/L (15-37); Albumin 3.7 g/dL (3.4-5.0); Alkaline Phosphatase 81 U/L (46-116); Anion Gap 6.8 mmol/L (3-11); BUN 29 mg/dL (7-18); Bilirubin, Total 0.7 mg/dL (0.2-1.0); CO2 26.2 mmol/L (21.0-32.0); CREATININE 1.9 mg/dL (0.70-1.30); Calcium 8.5 mg/dL (8.5-10.1); Chloride 102 mmol/L (98-107); Estimated GFR 40.13 (mL/min/1.73m2); Glucose 188 mg/dL (74-106); Potassium 4.9 mmol/L (3.5-5.1); Sodium 135 mmol/L (136-145); Total Protein 6.6 g/dL (6.4-8.2)
== END 2023-01-29 03:27 | disposition home or self-care (01) ==
LOC: LBO 03:26
PROVIDERS: PCP Nurse Practitioner Family; Visit Provider Internal Medicine Hematology & Oncology
DX: C83.38 Diffuse large B-cell lymphoma, lymph nodes of multiple sites (principal)
CPT/HCPCS: 36415; 80053; 85025

== ENCOUNTER 2023-02-12 03:05 | Outpatient (CLI) | payer MEDICARE, SELFPAY ==
[2023-02-12 08:47] LABS: Abs Immature Grans 0.03 10^3/uL (0.0-0.06); Absolute Basophil Count 0.12 10^3/uL (0.0-0.2); Absolute Eosinophil Count 0.37 10^3/uL (0.0-0.7); Absolute Lymphocyte Count 0.95 10^3/uL (1.2-3.4); Absolute Monocyte Count 0.31 10^3/uL (0.1-0.8); Basophils % 2.6; Eosinophils % 7.9; HCT 44.6 % (40.0-50.0); HGB 14.7 g/dL (13.5-17.5); Immature Grans % 0.6; Lymphocytes % 20.3; MCH 29.4 pg (27.0-33.0); MCV 89 fL (80-95); MPV 9.9 fL (8.0-11.0); Monocytes % 6.6; Platelet Count 141 10^3/uL (130-400); RDW 14.9 % (11.8-14.1); RDW-SD 49.7 fL; WBC 4.68 10^3/uL (4.4-10.8)
[2023-02-12 09:23] LABS: ALT 24 U/L (16-63); AST 21 U/L (15-37); Albumin 3.8 g/dL (3.4-5.0); Alkaline Phosphatase 128 U/L (46-116); Anion Gap 5.5 mmol/L (3-11); BUN 22 mg/dL (7-18); Bilirubin, Total 0.9 mg/dL (0.2-1.0); CO2 28.5 mmol/L (21.0-32.0); CREATININE 1.8 mg/dL (0.70-1.30); Calcium 8.7 mg/dL (8.5-10.1); Chloride 104 mmol/L (98-107); Estimated GFR 42.82 (mL/min/1.73m2); Glucose 140 mg/dL (74-106); LDH 141 U/L (85-227); PHOSPHORUS 2.6 mg/dL (2.6-4.7); Sodium 138 mmol/L (136-145)
[2023-02-12 10:05] LABS: Vitamin D 25 Total 16.6 ng/mL (30-100)
== END 2023-02-12 03:06 | disposition home or self-care (01) ==
LOC: LBO 03:05
PROVIDERS: PCP Nurse Practitioner Family; Visit Provider Internal Medicine Hematology & Oncology
DX: C92.10 Chronic myeloid leukemia, BCR/ABL-positive, not having achieved remission (principal); C83.30 Diffuse large B-cell lymphoma, unspecified site; N28.89 Other specified disorders of kidney and ureter; N18.30 Chronic kidney disease, stage 3 unspecified
CPT/HCPCS: 36415; 80053; 82306; 83615; 84100; 85025

== ENCOUNTER 2023-02-26 02:39 | Outpatient (CLI) | payer MEDICARE, SELFPAY ==
[2023-02-26 15:51] LABS: Abs Immature Grans 0.03 10^3/uL (0.0-0.06); Absolute Basophil Count 0.15 10^3/uL (0.0-0.2); Absolute Eosinophil Count 0.17 10^3/uL (0.0-0.7); Absolute Lymphocyte Count 1.39 10^3/uL (1.2-3.4); Absolute Monocyte Count 0.34 10^3/uL (0.1-0.8); Absolute Neutrophil Count 5.21 10^3/uL (1.2-6.7); Basophils % 2.1; Eosinophils % 2.3; HCT 48.5 % (40.0-50.0); HGB 15.9 g/dL (13.5-17.5); Immature Grans % 0.4; Lymphocytes % 19.1; MCH 28.9 pg (27.0-33.0); MCHC 32.8 % (32.0-36.0); MCV 88 fL (80-95); MPV 9.7 fL (8.0-11.0); Monocytes % 4.7; Neutrophils % 71.4; Platelet Count 210 10^3/uL (130-400); RDW 13.9 % (11.8-14.1); RDW-SD 44.9 fL; WBC 7.29 10^3/uL (4.4-10.8)
[2023-02-26 16:22] LABS: ALT 25 U/L (16-63); AST 23 U/L (15-37); Albumin 4.3 g/dL (3.4-5.0); Alkaline Phosphatase 137 U/L (46-116); Anion Gap 5.9 mmol/L (3-11); BUN 25 mg/dL (7-18); Bilirubin, Total 0.7 mg/dL (0.2-1.0); CO2 29.1 mmol/L (21.0-32.0); CREATININE 1.8 mg/dL (0.70-1.30); Calcium 9.3 mg/dL (8.5-10.1); Chloride 105 mmol/L (98-107); Estimated GFR 42.82 (mL/min/1.73m2); Glucose 131 mg/dL (74-106); LDH 225 U/L (85-227); Potassium 4.5 mmol/L (3.5-5.1); Sodium 140 mmol/L (136-145); Total Protein 7.7 g/dL (6.4-8.2)
== END 2023-02-26 02:40 | disposition home or self-care (01) ==
PROVIDERS: PCP Nurse Practitioner Family; Visit Provider Internal Medicine Hematology & Oncology
DX: C83.30 Diffuse large B-cell lymphoma, unspecified site (principal)
CPT/HCPCS: 36415; 80053; 83615; 85025

== ENCOUNTER 2023-03-30 21:56 | Emergency (ER) | payer MEDICARE, SELFPAY ==
[2023-03-30 21:59] VITALS: BP 133/77; PULSE 93; RESP 16; TEMP 36.3; O2SAT 100
[2023-03-30 22:15] VITALS: RESP 18
--- NOTE | 2023-03-30 22:33 | W.ED.GENAD ---
Discharge Plan Disposition Patient Disposition: Home Discharge Details Chief Complaint: GenMedical Clinical Impression: Hypoglycemia Primary Care Provider: William Meza ED Provider: Lazaro Saeed Home Meds and New Rx's Prescriptions: No Action imatinib [Gleevec] 400 mg tablet 400 mg PO DAILY ASPIRIN 81 MG tablet 1 tab PO DAILY (DME) blood-glucose meter [Prodigy Autocode Meter] 1 EACH kit 1 ea Miscellaneous QID Qty: 1 0RF (DME) BD Regular Bevel [place] 21 gauge x 1 1/2 needle 1 ea Miscellaneous DAILY Qty: 90 12RF Rx Instructions: E11.9; 8 mm needles (DME) NovoFine Plus 32 gauge x 1/6 needle See Rx Instructions .Route Qty: 100 4RF Rx Instructions: As directed ezetimibe [Zetia] 10 mg tablet 10 mg PO DAILY Qty: 90 3RF glipizide 10 mg tablet 10 mg PO BID Qty: 180 4RF (DME) pen needle, diabetic [BD Ultra-Fine Short Pen Needle] 31 gauge x 5/16 needle See Rx Instructions .ROUTE .MEDSUPPLY Qty: 100 8RF Rx Instructions: As directed. Use once daily. E11.9 insulin glargine [Basaglar KwikPen U-100 Insulin] 100 unit/mL (3 mL) insulin pen 80 unit subcut DAILY Qty: 72 3RF omeprazole 20 mg capsule,delayed release(DR/EC) 20 mg PO DAILY Qty: 90 3RF (DME) Prodigy No Coding Strip See Rx Instructions .Route Qty: 50 8RF Rx Instructions: 4x daily (DME) lancets [Prodigy Lancets] 28 gauge misc 1 ea Miscellaneous QID Qty: 360 4RF Rx Instructions: test 6x daily Ozempic 0.25 mg or 0.5 mg (2 mg/3 mL) pen injector 0.5 mg subcut QWEEK Discharge Instructions Instructions: Hypoglycemia in a Person with Diabetes (ED) Additional Instructions: Please follow-up with your primary care physician. Please return to the emergency department for any worsening symptoms. Medical Decision Making 57-year-old male presents after episode of acute hypoglycemia, has been active today without eating much and took his insulin. Patient has been requiring less insulin since starting his Ozempic and has recently cut back from 80 to 30 units. Patient experienced acute diaphoresis, no loss of consciousness. No chest pain or shortness of breath. Improvement of hyperglycemia from the 50s to 140s after drinking soda. No acute distress at this time afebrile nontoxic. Asymptomatic. Likely acute hyperglycemia in the setting of activity and low p.o. intake today, and also sounds as if patient's insulin requirements are rapidly decreasing with his weight loss and Ozempic use. Must also consider worsening CKD and glipizide toxicity. Will observe patient obtain basic labs urinalysis. Will perform serial blood glucose analysis. If patient's blood glucose remained stable and does not dip again here in department consider discharge home with close follow-up and return precautions 00: 45 patient resting comfortably no acute distress. Asymptomatic. Blood sugars have been ranging 1 70-200. Stable. Patient will take his blood sugar at home. Given strict return precautions. HPI General Date/Time Provider Initiated Documentation: 03/30/23 22:30. HPI Narrative: 57-year-old male history of diabetes CKD on insulin glipizide and Ozempic presents after episode of hypoglycemia to the 50s, requiring multiple sodas to bring his blood sugar back up. [place] acutely diaphoretic which usually indicates his hypoglycemia. Patient had been physically active as a doing work around the house and had not eaten as much today. Feeling better after soda and rest. No chest pain or shortness of breath no nausea no vomiting. Related Data Home Medications Medication Instructions Recorded Confirmed Aspirin 1 tab PO DAILY 02/01/13 03/30/23 blood-glucose meter (Prodigy ##1 11/28/17 03/30/23 Autocode Meter kit) needle (disp) 21 G 21 gauge x 1 ##90 02/02/20 03/30/2310/28 (BD Regular Bevel [place]) pen needle, diabetic 32 gauge x #100 ea 01/15/22 03/30/2311/01 (NovoFine Plus) ezetimibe 10 mg tablet (Zetia) 10 mg PO DAILY #90 tabs 08/22/22 03/30/23 glipizide 10 mg tablet 10 mg PO BID #180 tabs 08/29/22 03/30/23 pen needle, diabetic 31 gauge x #100 ea 10/23/22 03/30/2303/11 (BD Ultra-Fine Short Pen Needle) insulin glargine 100 unit/mL (3 80 unit (0.8 mL) subcut DAILY #72 12/16/22 03/30/23 mL) subcutaneous pen (Basaglar mL KwikPen U-100 Insulin) imatinib 400 mg tablet (Gleevec) 400 mg PO DAILY 02/04/23 03/30/23 omeprazole 20 mg capsule,delayed 20 mg PO DAILY #90 caps 02/26/23 03/30/23 release blood sugar diagnostic (Prodigy No #50 ea 02/27/23 03/30/23 Coding strips) lancets 28 gauge ([employer] Lancets) #360 ea 02/27/23 03/30/23 semaglutide 0.25 mg or 0.5 mg (2 0.5 mg subcut QWEEK 03/30/23 03/30/23 mg/3 mL) subcutaneous pen injector Previous Rx's Medication Instructions Recorded blood-glucose meter ([employer] ##1 11/28/17 Autocode Meter kit) needle (disp) 21 G 21 gauge x 1 ##90 02/02/20 1 (BD Regular Bevel [place]) pen needle, diabetic 32 gauge x #100 ea 01/15/22 1/6 (NovoFine Plus) ezetimibe 10 mg tablet (Zetia) 10 mg PO DAILY #90 tabs 08/22/22 glipizide 10 mg tablet 10 mg PO BID #180 tabs 08/29/22 pen needle, diabetic 31 gauge x #100 ea 10/23/22/ (BD Ultra-Fine Short Pen Needle) insulin glargine 100 unit/mL (3 80 unit (0.8 mL) subcut DAILY #72 12/16/22 mL) subcutaneous pen (Basaglar mL KwikPen U-100 Insulin) omeprazole 20 mg capsule,delayed 20 mg PO DAILY #90 caps 02/26/23 release blood sugar diagnostic (Prodigy No #50 ea 02/27/23 Coding strips) lancets 28 gauge ([employer] Lancets) #360 ea 02/27/23 Allergies Allergy/AdvReac Type Severity Reaction Status Date / Time famotidine AdvReac Severe diarrhea Verified 03/30/23 22:12 metformin AdvReac Severe VOMITING/DI Verified 03/30/23 22:12 ZZINESS atorvastatin AdvReac Intermediate Verified 03/30/23 22:12 pravastatin AdvReac Intermediate myalgias Verified 03/30/23 22:12 simvastatin AdvReac Intermediate JOINT PAIN Verified 03/30/23 22:12 lidocaine AdvReac Unknown Does not Verified 03/30/23 22:12 work on Patient procaine [From Novocain] AdvReac Unknown Does not Verified 03/30/23 22:12 work on Patient General Stated Complaint: GenMedical ASHKAN: 3 Review of Systems Narrative: Review of Systems Constitutional: negative Eyes: negative ENT: negative Cardiovascular: negative Respiratory: negative Gastrointestinal: negative : negative Musculoskeletal: negative Skin: negative Neurologic: negative Psych: negative PFSH All Active Problems (Updated 03/31/23 @ 00:48 by Lazaro Saeed MD) Hypoglycemia (Acute) Nail dystrophy (Acute) Hyperlipidemia (Acute) Chronic kidney disease, stage 3 (Acute) 2021- Cr-1.8 Nicotine dependence (Acute) quit about 2012, about 15 pk yr Polycythemia (Acute) 2021- Hct-51 Coronary artery disease (Chronic) About 2010-s/p CABG x 3 [facility]-by cardiology at [facility] 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, followed by oncology at [facility], in remission as of 01/2022 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) Obesity (Chronic) Essential hypertension (Chronic 08/05/13) Very labile, history after chemotherapy of hypotension Diabetic retinopathy (Chronic) severe; laser RX--blind OD BPH associated with nocturia (Chronic 06/16/18) Diabetic neuropathy (Acute) b/l feet, history of diabetic foot ulcer, followed by podiatry Blindness, one eye (Acute) right-diabetic retinopathy left eye 20/50 Medical History (Updated 03/31/23 @ 00:48 by Lazaro Saeed MD) Abdominal pain Blindness, one eye right-diabetic retinopathy Colonoscopy refused (06/16/18) Discharge planning issues DVT prophylaxis Nausea and vomiting Surgical History History of cataract removal with insertion of prosthetic lens History of coronary artery bypass surgery Family History Mother Heart disease Myocardial infarction CABG Father , 41 Myocardial infarction Sister Essential hypertension Maternal Grandmother Alzheimer disease Son No problems noted. Maternal Uncle Cancer Social History (Updated 11/25/22 @ 12:04 by Beti Liu) Smoking/Tobacco Use Status: Never Tobacco: How many years used: 20 Second Hand Exposure: Yes Smoking risk assessment performed?: Yes Alcohol Intake: current Alcohol Intake frequency: holidays/special occasions only Alcohol type: beer Drug use: Never Substance use type: does not use Caregiver/Support person: No Household members: significant other Housing: house Communication Needs: Corrective Lenses Do you need help understanding health information?: Often Pets and animals: Yes Pets and animals: cat(s) Sexually active: No Do you think of yourself as: straight/heterosexual Current gender identity: male What is your relationship status?: living with partner How often do you talk on the phone with friends or family?: three or more times per week How often do you get together with friends or relatives?: once per week How often do you attend bahai or adventism services?: decline to answer Do you belong to any clubs or organized social groups?: no Panel score (0-1 are the most socially isolated patients): 2 What type of physical activity do you participate in: walking Duration: 15-30 minutes/day Frequency: 1-2 times per week Antonia/Mandaen: None Special antonia needs: No Seatbelt use: always Helmet use: No Drive intox or ride w/intox vacuum truck driver: No Do you feel safe at home: Yes Do you feel safe in your relationship?: Yes Victim of physical abuse: No Victim of emotional abuse: No Victim of sexual abuse: No Would you like helpful sources: No Exam Narrative Exam Narrative: Physical Examination General: alert, awake, cooperative, resting comfortably, no acute distress HEENT: normocephalic, atraumatic; PERRL, EOM intact, conjunctiva normal; no nasal discharge; moist mucous membranes, oral and pharyngeal mucosa normal, tolerating secretions Neck: supple, trachea midline; full ROM Chest: normal to inspection Respiratory: normal respiratory effort, speaking in full sentences, clear to auscultation, no wheezing, rales or rhonchi Cardiac: regular rate, regular rhythm, S1S2 intact, no murmurs rubs or gallops GI: abdomen soft, non-tender, non-distended; no palpable mass or hepatosplenomegaly Skin: no lesions, rashes or trauma appreciated Neuro: AAOx3, normal speech, moving all extremities Psych: Appropriate mood and affect Course Vital Signs Vital signs: Vital Signs Temperature 36.3 C L 03/30/23 21:59 Pulse 93 H 03/30/23 21:59 Respiratory Rate 16 03/30/23 21:59 Blood Pressure 133/77 03/30/23 21:59 Pulse Oximetry 100 03/30/23 21:59 Temperature 36.3 C L 03/30/23 21:59 Temperature Source Oral 03/30/23 21:59 Pulse 93 H 03/30/23 21:59 Respiratory Rate 18 03/30/23 22:15 Respiratory Effort Normal 03/30/23 22:15 Respiratory Depth Normal 03/30/23 22:15 Respiratory Pattern Normal 03/30/23 22:15 Blood Pressure 133/77 03/30/23 21:59 Blood Pressure Position Sitting 03/30/23 21:59 Pulse Oximetry 100 03/30/23 21:59 Oxygen Delivery Method Room Air 03/30/23 21:59 Oxygen Flow Rate 0 03/30/23 21:59 Pain Level 0 03/30/23 21:59
[2023-03-30 22:50] LABS: Abs Immature Grans 0.02 10^3/uL (0.0-0.06); Absolute Basophil Count 0.12 10^3/uL (0.0-0.2); Absolute Eosinophil Count 0.25 10^3/uL (0.0-0.7); Absolute Lymphocyte Count 2.17 10^3/uL (1.2-3.4); Absolute Monocyte Count 0.65 10^3/uL (0.1-0.8); Absolute Neutrophil Count 5.33 10^3/uL (1.2-6.7); Basophils % 1.4; Eosinophils % 2.9; HCT 51.1 % (40.0-50.0); HGB 16.7 g/dL (13.5-17.5); Immature Grans % 0.2; Lymphocytes % 25.4; MCH 28.8 pg (27.0-33.0); MCHC 32.7 % (32.0-36.0); MCV 88 fL (80-95); MPV 9.9 fL (8.0-11.0); Monocytes % 7.6; Neutrophils % 62.5; Platelet Count 248 10^3/uL (130-400); RDW 13.2 % (11.8-14.1); RDW-SD 42.6 fL; WBC 8.54 10^3/uL (4.4-10.8)
[2023-03-30 23:07] LABS: ALT 27 U/L (16-63); AST 23 U/L (15-37); Albumin 4.6 g/dL (3.4-5.0); Alkaline Phosphatase 109 U/L (46-116); Anion Gap 11.7 mmol/L (3-11); BUN 32 mg/dL (7-18); Bilirubin, Total 0.5 mg/dL (0.2-1.0); CO2 26.3 mmol/L (21.0-32.0); CREATININE 2.3 mg/dL (0.70-1.30); Calcium 9.1 mg/dL (8.5-10.1); Chloride 100 mmol/L (98-107); Estimated GFR 31.91 (mL/min/1.73m2); Glucose 101 mg/dL (74-106); Sodium 138 mmol/L (136-145); Total Protein 8.2 g/dL (6.4-8.2)
[2023-03-30 23:33] LABS: Bilirubin Negative (Negative); Blood Negative (Negative); Clarity Clear (Clear); Glucose Negative (Negative); Ketones Negative (Negative); Leukocyte Esterase Negative (Negative); Nitrite Negative (Negative); Specific Gravity 1.015 (1.005-1.025); Urobilinogen 0.2 mg/dL (Up to 0.2)
[2023-03-30 23:39] LABS: Bacteria Negative HPF (Negative); C & S Indicated? No; Casts Negative LPF (Negative); Crystals Negative HPF (Negative); Epithelial Cells Negative HPF (Negative); Mucus Negative (Negative); RBC Negative HPF (0-2); WBC Negative HPF (0-5)
[2023-03-30 23:43] VITALS: BP 136/83; PULSE 84; O2SAT 96
[2023-03-30] MEDS: Normal Saline 500 ML 1000 ML IV (23:45)
== END 2023-03-31 01:07 | disposition home or self-care (01) ==
PROVIDERS: Emergency Provider Emergency Medicine; PCP Nurse Practitioner Family
DX: E11.22 Type 2 diabetes mellitus with diabetic chronic kidney disease (principal); E11.649 Type 2 diabetes mellitus with hypoglycemia without coma
CPT/HCPCS: 36416; 80053; 82962; 99283; 81003; 81015; 85025

== ENCOUNTER 2023-04-23 13:35 | Outpatient (CLI) | payer MEDICARE, SELFPAY ==
[2023-04-23 13:54] LABS: Abs Immature Grans 0.03 10^3/uL (0.0-0.06); Absolute Basophil Count 0.08 10^3/uL (0.0-0.2); Absolute Eosinophil Count 0.09 10^3/uL (0.0-0.7); Absolute Lymphocyte Count 1.33 10^3/uL (1.2-3.4); Absolute Monocyte Count 0.47 10^3/uL (0.1-0.8); Absolute Neutrophil Count 5.23 10^3/uL (1.2-6.7); Basophils % 1.1; Eosinophils % 1.2; HCT 46.9 % (40.0-50.0); HGB 15.8 g/dL (13.5-17.5); Immature Grans % 0.4; Lymphocytes % 18.4; MCH 29.1 pg (27.0-33.0); MCHC 33.7 % (32.0-36.0); MCV 86 fL (80-95); MPV 9.8 fL (8.0-11.0); Monocytes % 6.5; Neutrophils % 72.4; Platelet Count 221 10^3/uL (130-400); RBC 5.43 10^6/uL (4.36-5.78); RDW 13.2 % (11.8-14.1); RDW-SD 41.5 fL; WBC 7.23 10^3/uL (4.4-10.8)
[2023-04-23 14:20] LABS: ALT 25 U/L (16-63); AST 23 U/L (15-37); Albumin 3.9 g/dL (3.4-5.0); Alkaline Phosphatase 82 U/L (46-116); Anion Gap 8.7 mmol/L (3-11); BUN 26 mg/dL (7-18); Bilirubin, Total 0.6 mg/dL (0.2-1.0); CO2 26.3 mmol/L (21.0-32.0); Calcium 8.5 mg/dL (8.5-10.1); Chloride 100 mmol/L (98-107); Estimated GFR 37.74 (mL/min/1.73m2); Glucose 215 mg/dL (74-106); LDH 159 U/L (85-227); Potassium 4.1 mmol/L (3.5-5.1); Sodium 135 mmol/L (136-145)
== END 2023-04-23 13:36 | disposition home or self-care (01) ==
LOC: LBO 13:37
PROVIDERS: PCP Nurse Practitioner Family; Visit Provider Internal Medicine Hematology & Oncology
DX: C83.30 Diffuse large B-cell lymphoma, unspecified site (principal); C92.10 Chronic myeloid leukemia, BCR/ABL-positive, not having achieved remission
CPT/HCPCS: 36415; 80053; 81206; 83615; 85025

== ENCOUNTER 2023-04-24 04:21 | Outpatient (CLI) | payer MEDICARE, SELFPAY ==
[2023-04-28 09:43] LABS: Indication for Study CML; Specimen Type Blood
[2023-04-28 09:44] LABS: BCR-ABL1 p210 FusionTranscript See Comments
[2023-04-28 09:50] LABS: BCR-ABL1 Interpretation See Comments
[2023-04-28 09:52] LABS: Limitations and Disclaimers See Comments
== END 2023-04-24 04:22 | disposition home or self-care (01) ==
LOC: LBO 04:21
PROVIDERS: PCP Nurse Practitioner Family; Visit Provider Internal Medicine Hematology & Oncology
DX: C92.10 Chronic myeloid leukemia, BCR/ABL-positive, not having achieved remission (principal); C83.30 Diffuse large B-cell lymphoma, unspecified site
CPT/HCPCS: 36415; 81206

== ENCOUNTER 2023-06-12 05:16 | Outpatient (CLI) | payer MEDICARE, SELFPAY ==
[2023-06-12 14:47] LABS: Anion Gap 6.9 mmol/L (3-11); BUN 32 mg/dL (7-18); CO2 28.1 mmol/L (21.0-32.0); CREATININE 2.2 mg/dL (0.70-1.30); Calcium 8.7 mg/dL (8.5-10.1); Chloride 104 mmol/L (98-107); Estimated GFR 33.66 (mL/min/1.73m2); Glucose 193 mg/dL (74-106); Sodium 139 mmol/L (136-145)
== END 2023-06-12 05:17 | disposition home or self-care (01) ==
LOC: LBO 05:16
PROVIDERS: PCP Nurse Practitioner Family; Visit Provider Internal Medicine Nephrology
DX: N18.32 Chronic kidney disease, stage 3b (principal)
CPT/HCPCS: 36415; 80048

== ENCOUNTER 2023-07-17 03:42 | Outpatient (CLI) | payer MEDICARE, SELFPAY ==
[2023-07-17 15:40] LABS: Abs Immature Grans 0.02 10^3/uL (0.0-0.06); Absolute Basophil Count 0.06 10^3/uL (0.0-0.2); Absolute Lymphocyte Count 1.82 10^3/uL (1.2-3.4); Absolute Monocyte Count 0.64 10^3/uL (0.1-0.8); Absolute Neutrophil Count 4.07 10^3/uL (1.2-6.7); Basophils % 0.9; Eosinophils % 4.3; HCT 41.6 % (40.0-50.0); HGB 13.7 g/dL (13.5-17.5); Immature Grans % 0.3; Lymphocytes % 26.3; MCH 28.9 pg (27.0-33.0); MCHC 32.9 % (32.0-36.0); MCV 88 fL (80-95); MPV 9.1 fL (8.0-11.0); Monocytes % 9.3; Neutrophils % 58.9; Platelet Count 223 10^3/uL (130-400); RBC 4.74 10^6/uL (4.36-5.78); RDW 14.9 % (11.8-14.1); RDW-SD 48.2 fL; WBC 6.91 10^3/uL (4.4-10.8)
[2023-07-17 16:04] LABS: ALT 15 U/L (16-63); AST 13 U/L (15-37); Albumin 3.7 g/dL (3.4-5.0); Alkaline Phosphatase 78 U/L (46-116); Anion Gap 6.4 mmol/L (3-11); BUN 29 mg/dL (7-18); Bilirubin, Total 0.4 mg/dL (0.2-1.0); CO2 27.6 mmol/L (21.0-32.0); CREATININE 1.9 mg/dL (0.70-1.30); Calcium 8.7 mg/dL (8.5-10.1); Chloride 101 mmol/L (98-107); Estimated GFR 40.13 (mL/min/1.73m2); Glucose 177 mg/dL (74-106); LDH 127 U/L (85-227); Potassium 4.5 mmol/L (3.5-5.1); Sodium 135 mmol/L (136-145); Total Protein 6.8 g/dL (6.4-8.2)
[2023-07-21 10:42] LABS: BCR/ABL1, p210 Result see interpretation; Specimen Type EDTA Whole Blood
== END 2023-07-17 03:43 | disposition home or self-care (01) ==
LOC: LBO 03:42
PROVIDERS: PCP Nurse Practitioner Family; Visit Provider Internal Medicine Hematology & Oncology
DX: C92.10 Chronic myeloid leukemia, BCR/ABL-positive, not having achieved remission (principal); C83.30 Diffuse large B-cell lymphoma, unspecified site
CPT/HCPCS: 36415; 80053; 81206; 83615; 85025

== ENCOUNTER 2023-10-17 02:41 | Outpatient (CLI) | payer MEDICARE, SELFPAY ==
[2023-10-17 09:21] LABS: Abs Immature Grans 0.03 10^3/uL (0.0-0.06); Absolute Basophil Count 0.05 10^3/uL (0.0-0.2); Absolute Eosinophil Count 0.21 10^3/uL (0.0-0.7); Absolute Lymphocyte Count 1.23 10^3/uL (1.2-3.4); Absolute Neutrophil Count 3.92 10^3/uL (1.2-6.7); Basophils % 0.8; Eosinophils % 3.5; HCT 41.3 % (40.0-50.0); HGB 13.8 g/dL (13.5-17.5); Immature Grans % 0.5; Lymphocytes % 20.4; MCH 30.3 pg (27.0-33.0); MCHC 33.4 % (32.0-36.0); MCV 91 fL (80-95); MPV 9.8 fL (8.0-11.0); Monocytes % 9.9; Neutrophils % 64.9; Platelet Count 225 10^3/uL (130-400); RBC 4.55 10^6/uL (4.36-5.78); RDW 13.7 % (11.8-14.1); RDW-SD 45.9 fL; WBC 6.04 10^3/uL (4.4-10.8)
[2023-10-17 11:07] LABS: ALT 18 U/L (16-63); AST 19 U/L (15-37); Albumin 3.5 g/dL (3.4-5.0); Alkaline Phosphatase 58 U/L (46-116); Anion Gap 8.3 mmol/L (3-11); BUN 28 mg/dL (7-18); Bilirubin, Total 0.6 mg/dL (0.2-1.0); CO2 26.7 mmol/L (21.0-32.0); CREATININE 1.9 mg/dL (0.70-1.30); Calcium 8.3 mg/dL (8.5-10.1); Chloride 104 mmol/L (98-107); Estimated GFR 40.13 (mL/min/1.73m2); Glucose 171 mg/dL (74-106); LDH 158 U/L (85-227); Potassium 4.5 mmol/L (3.5-5.1); Sodium 139 mmol/L (136-145); Total Protein 6.5 g/dL (6.4-8.2)
[2023-10-21 12:09] LABS: BCR/ABL1, p210 Result see interpretation; Specimen Type EDTA Whole Blood
== END 2023-10-17 02:42 | disposition home or self-care (01) ==
LOC: LBO 02:42
PROVIDERS: PCP Nurse Practitioner Family; Visit Provider Internal Medicine Hematology & Oncology
DX: C92.10 Chronic myeloid leukemia, BCR/ABL-positive, not having achieved remission (principal); C83.38 Diffuse large B-cell lymphoma, lymph nodes of multiple sites
CPT/HCPCS: 36415; 80053; 81206; 83615; 85025

== ENCOUNTER 2024-01-08 03:02 | Outpatient (CLI) | payer MEDICARE, SELFPAY ==
[2024-01-08 13:06] LABS: Abs Immature Grans 0.02 10^3/uL (0.0-0.06); Absolute Basophil Count 0.03 10^3/uL (0.0-0.2); Absolute Eosinophil Count 0.15 10^3/uL (0.0-0.7); Absolute Lymphocyte Count 1.14 10^3/uL (1.2-3.4); Absolute Monocyte Count 0.67 10^3/uL (0.1-0.8); Absolute Neutrophil Count 3.83 10^3/uL (1.2-6.7); Basophils % 0.5; Eosinophils % 2.6; HCT 36.7 % (40.0-50.0); HGB 12.3 g/dL (13.5-17.5); Immature Grans % 0.3; Lymphocytes % 19.5; MCH 30.6 pg (27.0-33.0); MCHC 33.5 % (32.0-36.0); MCV 91 fL (80-95); MPV 9.3 fL (8.0-11.0); Monocytes % 11.5; Neutrophils % 65.6; Platelet Count 182 10^3/uL (130-400); RBC 4.02 10^6/uL (4.36-5.78); RDW 13.2 % (11.8-14.1); RDW-SD 44.2 fL; WBC 5.84 10^3/uL (4.4-10.8)
[2024-01-08 13:22] LABS: ALT 21 U/L (16-63); AST 19 U/L (15-37); Albumin 3.8 g/dL (3.4-5.0); Alkaline Phosphatase 75 U/L (46-116); BUN 23 mg/dL (7-18); Bilirubin, Total 0.6 mg/dL (0.2-1.0); CREATININE 1.7 mg/dL (0.70-1.30); Calcium 8.6 mg/dL (8.5-10.1); Chloride 103 mmol/L (98-107); Estimated GFR 45.58 (mL/min/1.73m2); Glucose 269 mg/dL (74-106); LDH 183 U/L (85-227); Potassium 4.2 mmol/L (3.5-5.1); Sodium 140 mmol/L (136-145)
[2024-01-30 15:00] LABS: Specimen Type Blood
[2024-01-30 15:01] LABS: BCR-ABL1 p210 FusionTranscript See Comments
[2024-01-30 15:05] LABS: BCR-ABL1 Interpretation See Comments
[2024-01-30 15:07] LABS: Limitations and Disclaimers See Comments
== END 2024-01-08 03:03 | disposition home or self-care (01) ==
LOC: LBO 03:03
PROVIDERS: PCP Nurse Practitioner Family; Visit Provider Internal Medicine Hematology & Oncology
DX: C83.38 Diffuse large B-cell lymphoma, lymph nodes of multiple sites (principal); C92.10 Chronic myeloid leukemia, BCR/ABL-positive, not having achieved remission
CPT/HCPCS: 36415; 80053; 81206; 83615; 85025

== ENCOUNTER 2024-02-05 05:27 | Outpatient (CLI) | payer MEDICARE, SELFPAY ==
[2024-02-05 11:38] LABS: Abs Immature Grans 0.02 10^3/uL (0.0-0.06); Absolute Basophil Count 0.04 10^3/uL (0.0-0.2); Absolute Eosinophil Count 0.07 10^3/uL (0.0-0.7); Absolute Lymphocyte Count 0.88 10^3/uL (1.2-3.4); Absolute Monocyte Count 0.82 10^3/uL (0.1-0.8); Absolute Neutrophil Count 3.84 10^3/uL (1.2-6.7); Basophils % 0.7; Eosinophils % 1.2; HCT 37.9 % (40.0-50.0); HGB 12.6 g/dL (13.5-17.5); Immature Grans % 0.4; Lymphocytes % 15.5; MCH 30.5 pg (27.0-33.0); MCHC 33.2 % (32.0-36.0); MCV 92 fL (80-95); MPV 9.6 fL (8.0-11.0); Monocytes % 14.5; Neutrophils % 67.7; Platelet Count 180 10^3/uL (130-400); RBC 4.13 10^6/uL (4.36-5.78); RDW 13.3 % (11.8-14.1); WBC 5.67 10^3/uL (4.4-10.8)
[2024-02-05 12:28] LABS: ALT 24 U/L (16-63); AST 21 U/L (15-37); Alkaline Phosphatase 66 U/L (46-116); Anion Gap 9.4 mmol/L (3-11); BUN 25 mg/dL (7-18); Bilirubin, Total 0.6 mg/dL (0.2-1.0); CO2 24.6 mmol/L (21.0-32.0); CREATININE 1.5 mg/dL (0.70-1.30); Calcium 8.9 mg/dL (8.5-10.1); Chloride 103 mmol/L (98-107); Estimated GFR 52.97 (mL/min/1.73m2); Glucose 214 mg/dL (74-106); Potassium 4.3 mmol/L (3.5-5.1); Sodium 137 mmol/L (136-145); Total Protein 7.3 g/dL (6.4-8.2)
[2024-02-09 09:33] LABS: Specimen Type Blood
[2024-02-09 09:35] LABS: BCR-ABL1 p210 FusionTranscript See Comments
[2024-02-09 09:40] LABS: BCR-ABL1 Interpretation See Comments
[2024-02-09 09:41] LABS: Limitations and Disclaimers See Comments
== END 2024-02-05 05:28 | disposition home or self-care (01) ==
LOC: LBO 05:27
PROVIDERS: PCP Nurse Practitioner Family; Visit Provider Internal Medicine Hematology & Oncology
DX: C92.10 Chronic myeloid leukemia, BCR/ABL-positive, not having achieved remission (principal); C83.38 Diffuse large B-cell lymphoma, lymph nodes of multiple sites
CPT/HCPCS: 36415; 80053; 81206; 85025

== ENCOUNTER 2024-04-13 04:59 | Outpatient (CLI) | payer MEDICARE, SELFPAY ==
[2024-04-13 08:57] LABS: Abs Immature Grans 0.01 10^3/uL (0.0-0.06); Absolute Basophil Count 0.04 10^3/uL (0.0-0.2); Absolute Lymphocyte Count 1.51 10^3/uL (1.2-3.4); Absolute Monocyte Count 0.62 10^3/uL (0.1-0.8); Absolute Neutrophil Count 3.43 10^3/uL (1.2-6.7); Basophils % 0.7 %; Eosinophils % 5.1 %; HCT 38.8 % (40.0-50.0); HGB 12.6 g/dL (13.5-17.5); Immature Grans % 0.2 %; Lymphocytes % 25.5 %; MCH 29.6 pg (27.0-33.0); MCHC 32.5 % (32.0-36.0); MCV 91 fL (80-95); MPV 9.7 fL (8.0-11.0); Monocytes % 10.5 %; Platelet Count 199 10^3/uL (130-400); RBC 4.25 10^6/uL (4.36-5.78); RDW 13.9 % (11.8-14.1); RDW-SD 46.8 fL; WBC 5.91 10^3/uL (4.4-10.8)
[2024-04-13 09:28] LABS: ALT 26 U/L (16-63); AST 20 U/L (15-37); Alkaline Phosphatase 57 U/L (46-116); Anion Gap 12.8 mmol/L (3-11); BUN 35 mg/dL (7-18); Bilirubin, Total 0.6 mg/dL (0.2-1.0); CO2 23.2 mmol/L (21.0-32.0); CREATININE 1.9 mg/dL (0.70-1.30); Calcium 8.6 mg/dL (8.5-10.1); Chloride 104 mmol/L (98-107); Estimated GFR 39.89 (mL/min/1.73m2); Glucose 118 mg/dL (74-106); LDH 164 U/L (85-227); Potassium 4.4 mmol/L (3.5-5.1); Sodium 140 mmol/L (136-145); Total Protein 7.3 g/dL (6.4-8.2)
[2024-04-15 15:47] LABS: BCR-ABL1 p210 FusionTranscript See Comments
[2024-04-15 15:48] LABS: BCR-ABL1 Interpretation See Comments
[2024-04-15 15:49] LABS: Limitations and Disclaimers See Comments
== END 2024-04-13 05:00 | disposition home or self-care (01) ==
LOC: LBO 05:00
PROVIDERS: PCP Nurse Practitioner Family; Visit Provider Internal Medicine Hematology & Oncology
DX: C92.10 Chronic myeloid leukemia, BCR/ABL-positive, not having achieved remission (principal)
CPT/HCPCS: 36415; 80053; 81206; 83615; 85025

== ENCOUNTER 2024-04-27 14:44 | Emergency (ER) | payer MEDICARE, SELFPAY ==
[2024-04-27 14:48] VITALS: BP 169/89; PULSE 80; RESP 16; TEMP 36.4; O2SAT 99
--- NOTE | 2024-04-27 15:21 | W.ED.GENAD ---
Discharge Plan Disposition Patient Disposition: Home Condition: Good Discharge Details Clinical Impression: Right ankle sprain Primary Care Provider: William Meza ED Provider: Jocelin Rodriguez Home Meds and New Rx's Prescriptions: Continued semaglutide 1 mg/dose (4 mg/3 mL) pen injector 1 mg subcut QWEEK Qty: 9 3RF glipizide 10 mg tablet 10 mg PO DAILY Qty: 90 3RF losartan 25 mg tablet 25 mg PO DAILY Qty: 90 3RF ASPIRIN 81 MG tablet 1 tab PO DAILY (DME) blood-glucose meter [[employer] Aut[employer]ode Meter] 1 EACH kit 1 ea Miscellaneous QID Qty: 1 0RF (DME) lancets [Prodigy Lancets] 28 gauge misc 1 ea Miscellaneous QID Qty: 360 4RF Rx Instructions: test 4x daily (DME) Prodigy No Coding Strip See Rx Instructions .Route Qty: 350 8RF Rx Instructions: 4x daily ezetimibe [Zetia] 10 mg tablet 10 mg PO DAILY Qty: 90 3RF Sprycel 140 mg tablet 140 mg PO DAILY Rx Instructions: Rx'd on 12/19/23 by Oncology at [facility] [place], Dr. Maxwell. -hb cholecalciferol (vitamin D3) 25 mcg (1,000 unit) tablet 1,000 unit PO DAILY Patient Comments: TAKE 1 TABLET BY MOUTH DAILY Discharge Instructions Instructions: Ankle Sprain ED Additional Instructions: Please call your primary care provider in the next week or two for reassessment if your ankle continues to bother you. I recommend that you discuss visual aids to help keep you safe while you are walking around to help prevent further injuries. Please ice, elevate your ankle above heart level, and use ankle splint for comfort. Wear well supportive shoes. Referrals: William Meza, IT PROGRAM [employer]ITOR [Primary Care Provider] - HPI General Date/Time Provider Initiated Documentation: 04/27/24 15:06. HPI Narrative: HPI: Vivek is a 58-year-old male with history of diabetic neuropathy, CKD stage III, T2DM, HTN, HLD, and chronic leukemia who presents to the emergency department today for evaluation of right ankle pain. He reports that due to his poor eyesight he has trouble with transitions in light; he accidentally missed some steps as he was walking, causing him to invert his ankle. He has been able to ambulate on it, but says that he has pain with walking. Pain is located to the lateral malleolus. There is significant swelling. He did take Tylenol before coming to the emergency department, as well as applying ice. No previous broken bones in this ankle. He does have significant neuropathy, unable to feel anything from his ankle down normally. No other injuries reported, he says he did not fall or hurt anything else. Physical exam remarkable for significant swelling to the lateral malleolus of the right ankle extending slightly to the top of foot. No sensation with palpation to most of the ankle, however he does have some tenderness with palpation anterior to the lateral malleolus. Brisk cap refill. Slightly limping gait. Full painless range of motion of toes and knee. No overlying abrasions/skin tears. No obvious ecchymosis. DDx includes but is not limited to: Sprain, fracture. X-rays of ankle and foot obtained to rule out fracture, as patient does have significant neuropathy that may limit physical exam. I independently interpreted the following tests: Right ankle and foot x-ray is negative for fracture. Radiologist interpretation agrees with this. While in the emergency department Vivek was given an ankle splint and educated on RICE. Recommend follow-up with PCP if symptoms not significantly better in the next week or so and to discuss use of visual aids for safety. He is agreeable with plan of care. Related Data Home Medications Medication Instructions Recorded Confirmed Aspirin 1 tab PO DAILY 02/01/13 04/27/24 blood-glucose meter ([employer] ##1 11/28/17 03/12/24 Autocode Meter kit) semaglutide 1 mg/dose (4 mg/3 mL) 1 mg (0.75 mL) subcut QWEEK #9 mL 05/30/23 04/27/24 subcutaneous pen injector lancets 28 gauge ([employer] Lancets) #360 ea 08/21/23 03/12/24 blood sugar diagnostic ([employer] No #350 ea 08/22/23 03/12/24 Coding strips) ezetimibe 10 mg tablet (Zetia) 10 mg PO DAILY #90 tabs 09/15/23 04/27/24 glipizide 10 mg tablet 10 mg PO DAILY #90 tabs 12/10/23 04/27/24 losartan 25 mg tablet 25 mg PO DAILY #90 tabs 12/10/23 04/27/24 dasatinib 140 mg tablet (Sprycel) 140 mg PO DAILY 01/09/24 04/27/24 cholecalciferol (vitamin D3) 25 1,000 unit PO DAILY 04/27/24 04/27/24 mcg (1,000 unit) tablet Previous Rx's Medication Instructions Recorded blood-glucose meter ([employer] ##1 11/28/17 Autocode Meter kit) semaglutide 1 mg/dose (4 mg/3 mL) 1 mg (0.75 mL) subcut QWEEK #9 mL 05/30/23 subcutaneous pen injector lancets 28 gauge ([employer] Lancets) #360 ea 08/21/23 blood sugar diagnostic ([employer] No #350 ea 08/22/23 Coding strips) ezetimibe 10 mg tablet (Zetia) 10 mg PO DAILY #90 tabs 09/15/23 glipizide 10 mg tablet 10 mg PO DAILY #90 tabs 12/10/23 losartan 25 mg tablet 25 mg PO DAILY #90 tabs 12/10/23 Allergies Allergy/AdvReac Type Severity Reaction Status Date / Time famotidine AdvReac Severe diarrhea Verified 04/27/24 14:51 metformin AdvReac Severe VOMITING/DI Verified 04/27/24 14:51 ZZINESS atorvastatin AdvReac Intermediate unknown Verified 04/27/24 14:51 pravastatin AdvReac Intermediate myalgias Verified 04/27/24 14:51 simvastatin AdvReac Intermediate JOINT PAIN Verified 04/27/24 14:51 lidocaine AdvReac Unknown Does not Verified 04/27/24 14:51 work on Patient procaine [From Novocain] AdvReac Unknown Does not Verified 04/27/24 14:51 work on Patient General Stated Complaint: Orthopedic ASHKAN: 4 Review of Systems Narrative: see HPI Exam Const General: cooperative, healthy appearing, comfortable and no acute distress Resp Effort & Inspection: normal respiratory effort and able to speak in complete sentences Extrem Right lower extremity: ankle Details: tenderness and swelling Details: laterally and anteriorly; no unusual warmth, no abrasions, no lacerations, no ecchymosis and no foreign bodies and foot Details: normal capillary refill and normal to inspection Course Vital Signs Vital signs: Vital Signs Temperature 36.4 C L 04/27/24 14:48 Pulse 80 04/27/24 14:48 Respiratory Rate 16 04/27/24 14:48 Blood Pressure 169/89 H 04/27/24 14:48 Pulse Oximetry 99 04/27/24 14:48 Temperature 36.4 C L 04/27/24 14:48 Pulse 80 04/27/24 14:48 Respiratory Rate 16 04/27/24 14:48 Respiratory Effort Normal 04/27/24 15:16 Blood Pressure 169/89 H 04/27/24 14:48 Pulse Oximetry 99 04/27/24 14:48 Medical Decision Making Imaging Data Radiologic Study: Radiologist's impression: Exam(s) XR ANKLE RT COMPLETE XR FOOT RT COMPLETE EXAM: XR FOOT RT COMPLETE and XR ankle RT complete CLINICAL HISTORY: R ankle pain; peripheral neurolopathy. TECHNIQUE: 2D digital imaging was performed of the right ankle and foot. Six images were obtained. AP, oblique and lateral views were obtained. COMPARISON: No priors for comparison. FINDINGS: BONES: No acute fracture is present. No bony destructive lesion is seen. There is an enthesophyte at the posterior calcaneus. There is a small plantar calcaneal spur. JOINTS: No dislocation present. Degenerative changes are seen in the foot particularly at the articulation of the navicular and the cuneiforms. There is normal configuration of the tarsal bones. SOFT TISSUE: Vascular calcifications are present. There is soft tissue swelling about the ankle laterally particularly. IMPRESSION: 1. No fragmentation or joint disorganization is seen in the foot or ankle at this time. 2. Degenerative changes of the foot. 3. Soft tissue swelling around the foot and ankle particularly laterally. 4. Vascular calcifications are present. Quality:SDOH Health Related Social Needs: No Data to Display PFSH All Active Problems (Updated 04/27/24 @ 15:55 by Jocelin Teresa) Right ankle sprain (Acute) Leukemia, chronic (Acute) Nail dystrophy (Acute) Hyperlipidemia (Acute) Chronic kidney disease, stage 3 (Acute) 2021- Cr-1.8 Nicotine dependence (Acute) quit about 2012, about 15 pk yr Polycythemia (Acute) 2021- Hct-51 Coronary artery disease (Chronic) About 2010-s/p CABG x 3 [facility]-by cardiology at [facility] 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, followed by oncology at [facility], in remission as of 01/2022 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) Obesity (Chronic) Essential hypertension (Chronic 08/05/13) Very labile, history after chemotherapy of hypotension Diabetic retinopathy (Chronic) severe; laser RX--blind OD BPH associated with nocturia (Chronic 06/16/18) Diabetic neuropathy (Acute) b/l feet, history of diabetic foot ulcer, followed by podiatry Blindness, one eye (Acute) right-diabetic retinopathy left eye 20/50 Medical History (Updated 04/27/24 @ 15:55 by Jocelin Teresa) Discharge planning issues DVT prophylaxis Nausea and vomiting Abdominal pain Colonoscopy refused (06/16/18) Blindness, one eye right-diabetic retinopathy Surgical History History of cataract removal with insertion of prosthetic lens History of coronary artery bypass surgery Family History Mother Heart disease Myocardial infarction CABG Father , 41 Myocardial infarction Sister Essential hypertension Maternal Grandmother Alzheimer disease Son No problems noted. Maternal Uncle Cancer Social History (Updated 11/25/22 @ 12:04 by Beti Liu) Smoking/Tobacco Use Status: Never Tobacco: How many years used: 20 Second Hand Exposure: Yes Smoking risk assessment performed?: Yes Alcohol Intake: current Alcohol Intake frequency: holidays/special occasions only Alcohol type: beer Drug use: Never Substance use type: does not use Caregiver/Support person: No Household members: significant other Housing: house Communication Needs: Corrective Lenses Do you need help understanding health information?: Often Pets and animals: Yes Pets and animals: cat(s) Sexually active: No Do you think of yourself as: straight/heterosexual Current gender identity: male What is your relationship status?: living with partner How often do you talk on the phone with friends or family?: three or more times per week How often do you get together with friends or relatives?: once per week How often do you attend rastafarian or moravian services?: decline to answer Do you belong to any clubs or organized social groups?: no Panel score (0-1 are the most socially isolated patients): 2 What type of physical activity do you participate in: walking Duration: 15-30 minutes/day Frequency: 1-2 times per week Antonia/Judaism: None Special antonia needs: No Seatbelt use: always Helmet use: No Drive intox or ride w/intox test driver: No Do you feel safe at home: Yes Do you feel safe in your relationship?: Yes Victim of physical abuse: No Victim of emotional abuse: No Victim of sexual abuse: No Would you like helpful sources: No
--- NOTE | 2024-04-27 15:28 | DI.RAD_ITS ---
Exam(s) XR ANKLE RT COMPLETE XR FOOT RT COMPLETE EXAM: XR FOOT RT COMPLETE and XR ankle RT complete CLINICAL HISTORY: R ankle pain; peripheral neurolopathy. TECHNIQUE: 2D digital imaging was performed of the right ankle and foot. Six images were obtained. AP, oblique and lateral views were obtained. COMPARISON: No priors for comparison. FINDINGS: BONES: No acute fracture is present. No bony destructive lesion is seen. There is an enthesophyte at the posterior calcaneus. There is a small plantar calcaneal spur. JOINTS: No dislocation present. Degenerative changes are seen in the foot particularly at the articul ation of the navicular and the cuneiforms. There is normal configuration of the tarsal bones. SOFT TISSUE: Vascular calcifications are present. There is soft tissue swelling about the ankle late rally particularly. IMPRESSION: 1. No fragmentation or joint disorganization is seen in the foot or ankle at this time. 2. Degenerative changes of the foot. 3. Soft tissue swelling around the foot and ankle particularly laterally. 4. Vascular calcifications are present. DATA REPOSITORY: RADIATION DOSE DELIVERED:
== END 2024-04-27 16:17 | disposition home or self-care (01) ==
PROVIDERS: Emergency Provider Nurse Practitioner Family; PCP Nurse Practitioner Family
DX: S93.401A Sprain of unspecified ligament of right ankle, initial encounter (principal); W19.XXXA Unspecified fall, initial encounter
CPT/HCPCS: 99284; 73610; 73630; 99283

== ENCOUNTER 2024-07-28 02:20 | Outpatient (CLI) | payer MEDICARE, SELFPAY ==
[2024-07-28 11:00] LABS: Abs Immature Grans 0.03 10^3/uL (0.0-0.06); Absolute Basophil Count 0.05 10^3/uL (0.0-0.2); Absolute Eosinophil Count 0.22 10^3/uL (0.0-0.7); Absolute Lymphocyte Count 1.18 10^3/uL (1.2-3.4); Absolute Monocyte Count 0.75 10^3/uL (0.1-0.8); Absolute Neutrophil Count 5.18 10^3/uL (1.2-6.7); Basophils % 0.7 %; HCT 40.8 % (40.0-50.0); HGB 13.4 g/dL (13.5-17.5); Immature Grans % 0.4 %; Lymphocytes % 15.9 %; MCH 30.2 pg (27.0-33.0); MCHC 32.8 % (32.0-36.0); MCV 92 fL (80-95); MPV 9.6 fL (8.0-11.0); Monocytes % 10.1 %; Neutrophils % 69.9 %; Platelet Count 221 10^3/uL (130-400); RBC 4.43 10^6/uL (4.36-5.78); RDW 13.2 % (11.8-14.1); RDW-SD 45.3 fL; WBC 7.41 10^3/uL (4.4-10.8)
[2024-07-28 11:19] LABS: ALT 25 U/L (16-63); AST 20 U/L (15-37); Albumin 4.4 g/dL (3.4-5.0); Alkaline Phosphatase 66 U/L (46-116); Anion Gap 7.6 mmol/L (3-11); BUN 25 mg/dL (7-18); Bilirubin, Total 0.58 mg/dL (0.2-1.0); CO2 27.4 mmol/L (21.0-32.0); CREATININE 1.5 mg/dL (0.70-1.30); Chloride 98 mmol/L (98-107); Estimated GFR 52.97 (mL/min/1.73m2); Glucose 261 mg/dL (74-106); LDH 188 U/L (85-227); Potassium 4.4 mmol/L (3.5-5.1); Sodium 133 mmol/L (136-145); Total Protein 8.1 g/dL (6.4-8.2)
[2024-08-03 09:07] LABS: BCR-ABL1 p210 FusionTranscript See Comments
[2024-08-03 09:10] LABS: BCR-ABL1 Interpretation See Comments
[2024-08-03 09:11] LABS: Limitations and Disclaimers See Comments
== END 2024-07-28 02:21 | disposition home or self-care (01) ==
PROVIDERS: PCP Nurse Practitioner Family; Referring Provider Nurse Practitioner Adult Health; Visit Provider Nurse Practitioner Adult Health
DX: C92.10 Chronic myeloid leukemia, BCR/ABL-positive, not having achieved remission (principal)
CPT/HCPCS: 36415; 80053; 81206; 83615; 85025

== ENCOUNTER 2024-11-06 10:42 | Emergency (ER) | payer MEDICARE, SELFPAY ==
[2024-11-06] VITALS (9 sets, daily range): BP systolic 132–183; BP diastolic 76–87; PULSE 77–82; RESP 14–18; TEMP 36.3–36.7; O2SAT 97–100
--- NOTE | 2024-11-06 10:45 | W.ED.GENAD ---
Discharge Plan Disposition Patient Disposition: Home Discharge Details Clinical Impression: Lower back pain Primary Care Provider: William Meza ED Provider: Jocelin Rodriguez Home Meds and New Rx's Prescriptions: New prednisone 20 mg tablet 40 mg PO DAILY Qty: 8 0RF gabapentin 100 mg capsule 100 mg PO BID Qty: 10 0RF No Action losartan 50 mg tablet 50 mg PO DAILY Qty: 90 3RF ASPIRIN 81 MG tablet 1 tab PO DAILY (DME) blood-glucose meter [[employer] Autocode Meter] 1 EACH kit 1 ea Miscellaneous QID Qty: 1 0RF dasatinib [Sprycel] 140 mg tablet 140 mg PO DAILY Rx Instructions: Rx'd on 12/19/23 by Oncology at [facility] [place], Dr. Maxwell. -hb glipizide 10 mg tablet 10 mg PO DAILY Qty: 90 3RF (DME) Prodigy No Coding Strip See Rx Instructions .Route Qty: 50 3RF Rx Instructions: Twice daily (DME) lancets [Prodigy Lancets] 28 gauge misc 1 ea Miscellaneous QID Qty: 100 4RF Rx Instructions: test 2x daily semaglutide 1 mg/dose (4 mg/3 mL) pen injector 1 mg subcut QWEEK Qty: 9 3RF ezetimibe [Zetia] 10 mg tablet 10 mg PO DAILY Qty: 90 3RF cholecalciferol (vitamin D3) 25 mcg (1,000 unit) tablet 1,000 unit PO DAILY Patient Comments: TAKE 1 TABLET BY MOUTH DAILY Discharge Instructions Additional Instructions: Please call your primary care provider first thing Friday morning to schedule follow-up appointment Your CT scan was significant for a bulge between L5/S1. You may use the prednisone as prescribed to help with inflammation, as well as gabapentin for pain control. You may use the Tylenol you have been using at home for pain as well. Heat/ice, gentle stretching, and physical therapy may be helpful as well. Return to emergency care if you develop new bowel/bladder changes, numbness in your underwear area, leg numbness/weakness, or if you are very worried and need to be rechecked again immediately Referrals: William Meza, [facility] [Primary Care Provider] - HPI General Date/Time Provider Initiated Documentation: 11/06/24 10:43. HPI Narrative: Vivek is a 58 year old male who presents to the emergency department today for evaluation of lower back pain radiates down the front of the left leg. He reports that this was triggered by moving a 5 gallon water jug into the car, happened while he was twisting. He has had intermittent lower back pain that wraps around the left hip and down the front of the leg to the knee since then. Since last night has become more consistent. He had an episode of cold sweats this morning, no recorded fever. Denies congestion, sore throat, cough, generalized fatigue/malaise, change in p.o. intake, nausea/vomiting, abdominal pain, change in bowel or bladder function from baseline, or hematuria/dysuria/foul odor to urine. No history of spinal instrumentation, IV drug use, or alcoholism. He has been taking Tylenol without improvement of symptoms. Past medical history is significant for diabetic neuropathy, CKD stage III, T2DM, HTN, HLD, CABG x 3, and chronic leukemia. He does have a history of previous back injury with herniated disks, was treated with chiropractor. Physical exam remarkable for uncomfortable patient, pain is triggered with any movement. 5/5 muscle strength bilaterally, though L leg strength is noted to be less than R leg. Seated straight leg raise normal, no radiculopathy elicited. Normal gait, consistent with lower back pain. Sensation grossly intact. No color change or coolness to extremities. No T-spine or L-spine step-off/tenderness/deformity with palpation. No obvious muscle spasms noted on exam. No overlying rashes, ecchymosis, or skin lesions. D/dx includes but is not limited to: lower back strain, herniated disk lytic lesions, pathologic fracture, pyelonephritis, nephrolithiasis. No significant trauma or red flags concerning for vascular etiology or spinal cord compression such as cauda equina. Low suspicion for spinal epidural abscess/osteomyelitis with no history of fevers, history of spinal surgery/instrumentation, hemodialysis, recent immunosuppression, or IVDU. I did review records from [facility], patient has labs drawn on 08-19, white cell count 7.41 with ANC 5.18. Creatinine was 1.5 at that time. He last had an office visit with heme-onc on 04/28/2024; no changes to medications made at that time. I independently interpreted the following tests: CBC and CMP reassuring, no changes from previous. UA unremarkable, only 30 protein noted, not consistent with UTI. While in the emergency department, Vivek received morphine for pain control and diazepam for muscle spasm. CT scan notable for disc bulge at L5-S1. This is consistent with dermatome of radiculopathy. Will treat with prednisone and gabapentin for lumbar radiculopathy, recommend outpatient follow-up and PT for management. Reviewed discharge instructions with patient, including symptomatic management and red flags indicating need for return to emergency care Related Data Home Medications ?Medication ?Instructions ?Recorded ?Confirmed Aspirin 1 tab PO DAILY 02/01/13 11/06/24 blood-glucose meter ([employer] ##1 11/28/17 11/06/24 Autocode Meter kit) dasatinib 140 mg tablet (Sprycel) 140 mg PO DAILY 01/09/24 11/06/24 cholecalciferol (vitamin D3) 25 1,000 unit PO DAILY 04/27/24 11/06/24 mcg (1,000 unit) tablet glipizide 10 mg tablet 10 mg PO DAILY #90 tabs 05/24/24 11/06/24 blood sugar diagnostic (Prodigy No #50 ea 06/09/24 11/06/24 Coding strips) lancets 28 gauge ([employer] Lancets) #100 ea 06/09/24 11/06/24 semaglutide 1 mg/dose (4 mg/3 mL) 1 mg (0.75 mL) subcut QWEEK #9 mL 09/06/24 11/06/24 subcutaneous pen injector ezetimibe 10 mg tablet (Zetia) 10 mg PO DAILY #90 tabs 09/15/24 11/06/24 losartan 50 mg tablet 50 mg PO DAILY #90 tabs 09/20/24 11/06/24 gabapentin 100 mg capsule 100 mg PO BID #10 caps 11/06/24 prednisone 20 mg tablet 40 mg (2 x 20 mg) PO DAILY #8 tabs 11/06/24 Previous Rx's ?Medication ?Instructions ?Recorded blood-glucose meter ([employer] ##1 11/28/17 Autocode Meter kit) glipizide 10 mg tablet 10 mg PO DAILY #90 tabs 05/24/24 blood sugar diagnostic (Prodigy No #50 ea 06/09/24 Coding strips) lancets 28 gauge ([employer] Lancets) #100 ea 06/09/24 semaglutide 1 mg/dose (4 mg/3 mL) 1 mg (0.75 mL) subcut QWEEK #9 mL 09/06/24 subcutaneous pen injector ezetimibe 10 mg tablet (Zetia) 10 mg PO DAILY #90 tabs 09/15/24 losartan 50 mg tablet 50 mg PO DAILY #90 tabs 09/20/24 gabapentin 100 mg capsule 100 mg PO BID #10 caps 11/06/24 prednisone 20 mg tablet 40 mg (2 x 20 mg) PO DAILY #8 tabs 11/06/24 Allergies Allergy/AdvReac Type Severity Reaction Status Date / Time famotidine AdvReac Severe diarrhea Verified 11/06/24 10:48 metformin AdvReac Severe VOMITING/DI Verified 11/06/24 10:48 ZZINESS atorvastatin AdvReac Intermediate unknown Verified 11/06/24 10:48 pravastatin AdvReac Intermediate myalgias Verified 11/06/24 10:48 simvastatin AdvReac Intermediate JOINT PAIN Verified 11/06/24 10:48 lidocaine AdvReac Unknown Does not Verified 11/06/24 10:48 work on Patient procaine (From Novocain) AdvReac Unknown Does not Verified 11/06/24 10:48 work on Patient General ASHKAN: 4 Review of Systems Narrative: See HPI Exam Const General: cooperative, healthy appearing, well developed and well groomed Nutritional Appearance: average body habitus and well nourished Orientation: alert and oriented x3 Resp Effort & Inspection: normal respiratory effort and able to speak in complete sentences Back/Spine/Pelvis Back: no CVA tenderness Thoracic/Lumbar Spine: thoracic and lumbar spine normal to inspection, straight leg raise negative bilaterally, pain with thoraco-lumbar ROM and No paraspinal tenderness Skin General skin exam: no rashes or lesions noted Trauma: no lacerations or abrasions Neuro General: patient alert, patient oriented x3, tone normal, moves all extremities and no focal motor deficits Cognition: normal cognition Speech: speech normal Gait: antalgic Motor: muscle tone normal throughout and strength 5/5 throughout (L<R) Sensory Exam: no sensory deficits noted Extrem General: normal to inspection, full ROM, no joint enlargement, no pedal edema and no calf tenderness Medical Decision Making Imaging Data Radiologic Study: Radiologist's impression: Exam(s) CT LUMBAR SPINE RECONS CT ABDOMEN PELVIS WO EXAM: CT ABDOMEN PELVIS WO and CT lumbar spine recons CLINICAL HISTORY: lower back pain, r/o kidney stone. TECHNIQUE: Imaging Protocol: Axial computed tomography images with coronal and sagittal reformatted images were created and reviewed. COMPARISON: CT CT ABDOMEN PELVIS WO from 12/29/[address] LUMBAR SPINE RECONS from 11/06/2024 FINDINGS: ABDOMEN: Lung Bases: Coronary artery calcifications are present. Liver: Normal density. No measurable mass. Gallbladder and biliary tract: No radiodense calculus or biliary ductal dilation. Pancreas: Normal density, no abnormal calcifications or inflammatory process. Spleen: Normal. Kidneys: Normal size, contour and axis.No radiodense stones or obstructive uropathy. No masses seen. Note is made of a circum aortic left renal vein. Adrenal glands: There is a stable hypodense left adrenal nodule most consistent with an adenoma. The right adrenal gland is unremarkable. Lymph nodes: Within normal limits. Abdominal Aorta: Abdominal portion non-dilated. Atherosclerotic calcification is present. PELVIS: Bladder:Symmetric distention, no gross wall thickening. Bowel: No obstruction or bowel wall thickening. Appendix is unremarkable. Peritoneal cavity: No ascites, collection or mesenteric inflammatory response. No free air. Reproductive organs: Unremarkable as visualized. Bones: Within normal limits. Soft Tissues: Within normal limits. CT scan of the lumbar spine recons: Age-appropriate degenerative changes are seen in the lumbar spine. No acute fractures or subluxations are present. No large disc herniations are identified. No significant central spinal canal stenosis is present. IMPRESSION: 1. No evidence of nephrolithiasis or hydronephrosis. 2. No acute abdominal or pelvic process. 3. No significant central spinal canal stenosis. Degenerative changes seen in the lumbar spine as described above. Quality:SDOH Health Related Social Needs: No Data to Display PFSH All Active Problems (Updated 11/06/24 @ 13:02 by Jocelin Teresa) Lower back pain (Acute) Leukemia, chronic (Acute) Nail dystrophy (Acute) Hyperlipidemia (Acute) Chronic kidney disease, stage 3 (Acute) 2021- Cr-1.8 Nicotine dependence (Acute) quit about 2012, about 15 pk yr Polycythemia (Acute) 2021- Hct-51 Coronary artery disease (Chronic) About 2010-s/p CABG x 3 [facility]-by cardiology at [facility] Large B-cell lymphoma (Acute) about 2020-status post chemotherapy, followed by oncology at [facility], in remission as of 01/2022 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) Obesity (Chronic) Essential hypertension (Chronic 08/05/13) Very labile, history after chemotherapy of hypotension Diabetic retinopathy (Chronic) severe; laser RX--blind OD BPH associated with nocturia (Chronic 06/16/18) Diabetic neuropathy (Acute) b/l feet, history of diabetic foot ulcer, followed by podiatry Blindness, one eye (Acute) right-diabetic retinopathy left eye 2050 Medical History Discharge planning issues DVT prophylaxis Nausea and vomiting Abdominal pain Colonoscopy refused (06/16/18) Blindness, one eye right-diabetic retinopathy Surgical History History of cataract removal with insertion of prosthetic lens History of coronary artery bypass surgery Family History Mother Heart disease Myocardial infarction CABG Father , 41 Myocardial infarction Sister Essential hypertension Maternal Grandmother Alzheimer disease Son No problems noted. Maternal Uncle Cancer Social History Smoking/Tobacco Use Status: Never Tobacco: How many years used: 20 Second Hand Exposure: Yes Smoking risk assessment performed?: Yes Alcohol Intake: current Alcohol Intake frequency: holidays/special occasions only Alcohol type: beer Drug use: Never Substance use type: does not use Caregiver/Support person: No Household members: significant other Housing: house Communication Needs: Corrective Lenses Do you need help understanding health information?: Often Pets and animals: Yes Pets and animals: cat(s) Sexually active: No Do you think of yourself as: straight/heterosexual Current gender identity: male What is your relationship status?: living with partner How often do you talk on the phone with friends or family?: three or more times per week How often do you get together with friends or relatives?: once per week How often do you attend jehovah's witness or lutheran services?: decline to answer Do you belong to any clubs or organized social groups?: no Panel score (0-1 are the most socially isolated patients): 2 What type of physical activity do you participate in: walking Duration: 15-30 minutes/day Frequency: 1-2 times per week Antonia/Zoroastrian: None Special antonia needs: No Seatbelt use: always Helmet use: No Drive intox or ride w/intox [employer] company driver: No Do you feel safe at home: Yes Do you feel safe in your relationship?: Yes Victim of physical abuse: No Victim of emotional abuse: No Victim of sexual abuse: No Would you like helpful sources: No
--- NOTE | 2024-11-06 11:00 | DI.CT_ITS ---
Exam(s) CT LUMBAR SPINE RECONS CT ABDOMEN PELVIS WO EXAM: CT ABDOMEN PELVIS WO and CT lumbar spine recons CLINICAL HISTORY: lower back pain, r/o kidney stone. TECHNIQUE: Imaging Protocol: Axial computed tomography images with coronal and sagittal reformatted images were created and reviewed. COMPARISON: CT CT ABDOMEN PELVIS WO from 12/29/[address] LUMBAR SPINE RECONS from 11/06/2024 FINDINGS: ABDOMEN: Lung Bases: Coronary artery calcifications are present. Liver: Normal density. No measurable mass. Gallbladder and biliary tract: No radiodense calculus or biliary ductal dilation. Pancreas: Normal density, no abnormal calcifications or inflammatory process. Spleen: Normal. Kidneys: Normal size, contour and axis.No radiodense stones or obstructive uropathy. No masses seen. Note is made of a circum aortic left renal vein. Adrenal glands: There is a stable hypodense left adrenal nodule most consistent with an adenoma. The right adrenal gland is unremarkable. Lymph nodes: Within normal limits. Abdominal Aorta: Abdominal portion non-dilated. Atherosclerotic calcification is present. PELVIS: Bladder:Symmetric distention, no gross wall thickening. Bowel: No obstruction or bowel wall thickening. Appendix is unremarkable. Peritoneal cavity: No ascites, collection or mesenteric inflammatory response. No free air. Reproductive organs: Unremarkable as visualized. Bones: Within normal limits. Soft Tissues: Within normal limits. CT scan of the lumbar spine recons: Age-appropriate degenerative changes are seen in the lumbar spine . No acute fractures or subluxations are present. No large disc herniations are identified. No sig nificant central spinal canal stenosis is present. IMPRESSION: 1. No evidence of nephrolithiasis or hydronephrosis. 2. No acute abdominal or pelvic process. 3. No significant central spinal canal stenosis. Degenerative changes seen in the lumbar spine as de scribed above. RADIATION DOSE DELIVERED: 357.99mGy.cm Total DLP DATA REPOSITORY: All CT scans at this facility are submitted to the National Radiology Data Registry (NRDR) Dose Index Registry (DIR) with the [employer] (ACR). RADIATION OPTIMIZATION: All CT scans at this facility use at least one of these dose optimization te chniques: automated exposure control; mA and/or kV adjustment per patient size (includes targeted exa ms where dose is matched to clinical indication); or iterative reconstruction.
[2024-11-06] MEDS: MORPHine 4 MG/ML SYR IVP (11:20)
[2024-11-06 11:38] LABS: Lab Add On Test DONE
[2024-11-06 11:55] LABS: ALT 25 U/L (16-63); AST 20 U/L (15-37); Albumin 4.2 g/dL (3.4-5.0); Alkaline Phosphatase 63 U/L (46-116); Anion Gap 8.3 mmol/L (3-11); BUN 33 mg/dL (7-18); Bilirubin, Total 0.87 mg/dL (0.2-1.0); CO2 26.7 mmol/L (21.0-32.0); CREATININE 1.7 mg/dL (0.70-1.30); Calcium 9.7 mg/dL (8.5-10.1); Chloride 100 mmol/L (98-107); Estimated GFR 45.58 (mL/min/1.73m2); Glucose 230 mg/dL (74-106); Potassium 4.5 mmol/L (3.5-5.1); Sodium 135 mmol/L (136-145)
[2024-11-06 11:57] LABS: Abs Immature Grans 0.03 10^3/uL (0.0-0.06); Absolute Basophil Count 0.09 10^3/uL (0.0-0.2); Absolute Eosinophil Count 0.29 10^3/uL (0.0-0.7); Absolute Lymphocyte Count 1.15 10^3/uL (1.2-3.4); Absolute Monocyte Count 0.73 10^3/uL (0.1-0.8); Absolute Neutrophil Count 5.71 10^3/uL (1.2-6.7); Basophils % 1.1 %; Eosinophils % 3.6 %; HCT 44.8 % (40.0-50.0); HGB 14.8 g/dL (13.5-17.5); Immature Grans % 0.4 %; Lymphocytes % 14.4 %; MCH 29.8 pg (27.0-33.0); MCV 90 fL (80-95); MPV 10.2 fL (8.0-11.0); Monocytes % 9.1 %; Neutrophils % 71.4 %; Platelet Count 232 10^3/uL (130-400); RBC 4.97 10^6/uL (4.36-5.78); RDW-SD 42.5 fL
[2024-11-06] MEDS: diazePAM 2 MG TAB PO (12:06)
--- NOTE | 2024-11-06 12:34 | DI.VRAD_ITS ---
PROCEDURE INFORMATION: Exam: CT Abdomen And Pelvis Without Contrast Exam date and time: 11/06/2024 11:39 AM Age: 58 years old Clinical indication: Other: Lower back pain, R/O kidney stone TECHNIQUE: Imaging protocol: Computed tomography of the abdomen and pelvis without contrast. COMPARISON: CT ABDOMEN PELVIS WO 12/29/2019 12:13 AM FINDINGS: Liver: Normal. No mass. Gallbladder and biliary ducts: Normal. No calcified stones. No ductal dilation. Pancreas: Normal. No ductal dilation. Spleen: Normal. No splenomegaly. Adrenal glands: There is a 1 cm left adrenal adenoma. Kidneys and ureters: No renal or ureteral calculi. No hydronephrosis or hydroureter. Stomach and bowel: Unremarkable. No obstruction. No mucosal thickening. Appendix: No evidence of appendicitis. Intraperitoneal space: Unremarkable. No free air. No significant fluid collection. Vasculature: Unremarkable. No abdominal aortic aneurysm. Lymph nodes: Unremarkable. No enlarged lymph nodes. Urinary bladder: Unremarkable as visualized. Reproductive: Unremarkable as visualized. Bones/joints: There are degenerative changes in the lumbar spine, with L5-S1 disc bulge/herniation. No acute bone abnormality. Soft tissues: Unremarkable. IMPRESSION: 1. No renal, ureteral or bladder calculi. No hydronephrosis or hydroureter. 2. L5-S1 disc bulge/herniation. Dictated and Authenticated by: Guy Deshpande MD. Ordering:ABEBY Monreal MD
--- NOTE | 2024-11-06 12:35 | DI.VRAD_ITS ---
PROCEDURE INFORMATION: Exam: CT Lumbar Spine Without Contrast Exam date and time: 11/06/2024 11:39 AM Age: 58 years old Clinical indication: Other: Lower back pain radiating down L leg, active cml TECHNIQUE: Imaging protocol: Computed tomography of the lumbar spine without contrast. COMPARISON: CT ABDOMEN PELVIS WO 11/06/2024 11:39 AM FINDINGS: Bones/joints: Alignment is normal. Vertebral body heights are maintained. There is an L5-S1 disc bulge/herniation. There is mild multilevel disc height loss, endplate spurring and facet hypertrophy. No spinal canal stenosis. Soft tissues: Unremarkable. IMPRESSION: 1. L5-S1 disc bulge/herniation. 2. Mild degenerative disc disease. Dictated and Authenticated by: Guy Deshpande MD. Ordering:ABBEY Monreal MD
[2024-11-06 12:37] LABS: Bilirubin Negative (Negative); Blood Negative (Negative); Clarity Clear (Clear); Glucose Negative (Negative); Ketones Negative (Negative); Leukocyte Esterase Negative (Negative); Nitrite Negative (Negative); Urobilinogen 0.2 mg/dL (Up to 0.2); pH 5.5 (5-8)
[2024-11-06 12:53] LABS: Bacteria Few HPF (Negative); C & S Indicated? No; Casts Negative LPF (Negative); Crystals Negative HPF (Negative); Epithelial Cells Rare HPF (Negative); Mucus Trace (Negative); RBC 0-2 HPF (0-2); WBC 0-2 HPF (0-5)
[2024-11-06] MEDS: predniSONE 20 MG TAB 40 MG PO (13:19)
== END 2024-11-06 13:24 | disposition home or self-care (01) ==
PROVIDERS: Emergency Provider Nurse Practitioner Family; PCP Nurse Practitioner Family
DX: M54.50 Low back pain, unspecified (principal)
CPT/HCPCS: 36415; 80048; 80053; 96374; 99284; 74176; 81003; 81015; 85025; J2270; J7512

== ENCOUNTER 2024-11-17 02:05 | Outpatient (CLI) | payer MEDICARE, SELFPAY ==
[2024-11-17 09:57] LABS: Calculated LDL 76 mg/dL (<100); Cholesterol 143 mg/dL (<200); HDL Cholesterol 58 mg/dL (40-60); Triglyceride 49 mg/dL (<150)
[2024-11-17 20:04] LABS: PSA, Screening 0.1 ng/mL (<=4.5)
== END 2024-11-17 02:06 | disposition home or self-care (01) ==
LOC: LBO 02:05
PROVIDERS: PCP Nurse Practitioner Family; Visit Provider Nurse Practitioner Family
DX: Z12.5 Encounter for screening for malignant neoplasm of prostate (principal); E78.5 Hyperlipidemia, unspecified; Z13.220 Encounter for screening for lipoid disorders
CPT/HCPCS: 36415; 80061; 84153

== ENCOUNTER 2024-12-06 03:03 | Outpatient (CLI) | payer MEDICARE, MEDICAID, SELFPAY ==
[2024-12-06 09:00] LABS: Abs Immature Grans 0.04 10^3/uL (0.0-0.06); Absolute Basophil Count 0.04 10^3/uL (0.0-0.2); Absolute Eosinophil Count 0.24 10^3/uL (0.0-0.7); Absolute Lymphocyte Count 1.15 10^3/uL (1.2-3.4); Absolute Monocyte Count 0.88 10^3/uL (0.1-0.8); Absolute Neutrophil Count 4.34 10^3/uL (1.2-6.7); Basophils % 0.6 %; Eosinophils % 3.6 %; HCT 38.8 % (40.0-50.0); Immature Grans % 0.6 %; Lymphocytes % 17.2 %; MCH 29.7 pg (27.0-33.0); MCHC 33.5 % (32.0-36.0); MCV 89 fL (80-95); MPV 9.7 fL (8.0-11.0); Monocytes % 13.2 %; Neutrophils % 64.8 %; Platelet Count 260 10^3/uL (130-400); RBC 4.37 10^6/uL (4.36-5.78); RDW 13.3 % (11.8-14.1); RDW-SD 43.9 fL; WBC 6.69 10^3/uL (4.4-10.8)
[2024-12-06 09:23] LABS: ALT 31 U/L (16-63); AST 18 U/L (15-37); Albumin 3.6 g/dL (3.4-5.0); Alkaline Phosphatase 72 U/L (46-116); Anion Gap 7.8 mmol/L (3-11); BUN 21 mg/dL (7-18); Bilirubin, Total 0.45 mg/dL (0.2-1.0); CO2 26.2 mmol/L (21.0-32.0); CREATININE 1.4 mg/dL (0.70-1.30); Calcium 9.3 mg/dL (8.5-10.1); Chloride 106 mmol/L (98-107); Estimated GFR 57.18 (mL/min/1.73m2); Glucose 182 mg/dL (74-106); LDH 145 U/L (85-227); Potassium 4.3 mmol/L (3.5-5.1); Sodium 140 mmol/L (136-145)
[2024-12-09 08:03] LABS: BCR-ABL1 Molecular Response 3.96; BCR-ABL1 p210 FusionTranscript Detected
[2024-12-09 08:07] LABS: BCR-ABL1 Interpretation See Comments
[2024-12-09 08:11] LABS: BCR-ABL1 Methods & Limitations See Comments
== END 2024-12-06 03:04 | disposition home or self-care (01) ==
PROVIDERS: PCP Nurse Practitioner Family; Visit Provider Nurse Practitioner Adult Health
DX: C92.10 Chronic myeloid leukemia, BCR/ABL-positive, not having achieved remission (principal)
CPT/HCPCS: 36415; 80053; 81206; 83615; 85025

== ENCOUNTER 2025-04-13 03:04 | Outpatient (CLI) | payer MEDICARE, SELFPAY ==
[2025-04-13 08:35] LABS: Abs Immature Grans 0.03 10^3/uL (0.0-0.06); Absolute Basophil Count 0.06 10^3/uL (0.0-0.2); Absolute Eosinophil Count 0.34 10^3/uL (0.0-0.7); Absolute Lymphocyte Count 1.31 10^3/uL (1.2-3.4); Absolute Monocyte Count 0.68 10^3/uL (0.1-0.8); Absolute Neutrophil Count 3.23 10^3/uL (1.2-6.7); Basophils % 1.1 %; HCT 41.8 % (40.0-50.0); HGB 13.7 g/dL (13.5-17.5); Immature Grans % 0.5 %; Lymphocytes % 23.2 %; MCH 29.5 pg (27.0-33.0); MCHC 32.8 % (32.0-36.0); MCV 90 fL (80-95); MPV 9.5 fL (8.0-11.0); Neutrophils % 57.2 %; Platelet Count 213 10^3/uL (130-400); RBC 4.64 10^6/uL (4.36-5.78); RDW 13.5 % (11.8-14.1); RDW-SD 44.9 fL; WBC 5.65 10^3/uL (4.4-10.8)
[2025-04-13 09:45] LABS: ALT 23 U/L (16-63); AST 18 U/L (15-37); Albumin 4.2 g/dL (3.4-5.0); Alkaline Phosphatase 56 U/L (46-116); BUN 34 mg/dL (7-18); Bilirubin, Total 0.6 mg/dL (0.2-1.0); CREATININE 1.7 mg/dL (0.70-1.30); Chloride 104 mmol/L (98-107); Glucose 143 mg/dL (74-106); LDH 168 U/L (85-227); Sodium 139 mmol/L (136-145); Total Protein 7.7 g/dL (6.4-8.2)
[2025-05-12 13:28] LABS: BCR-ABL1 Molecular Response 3.92; BCR-ABL1 p210 FusionTranscript Detected (NotDetected)
[2025-05-12 13:35] LABS: BCR-ABL1 Interpretation See Comments
[2025-05-12 13:36] LABS: BCR-ABL1 Methods & Limitations See Comments
== END 2025-04-13 03:05 | disposition home or self-care (01) ==
PROVIDERS: PCP Nurse Practitioner Family; Visit Provider Nurse Practitioner Adult Health
DX: C92.10 Chronic myeloid leukemia, BCR/ABL-positive, not having achieved remission (principal)
CPT/HCPCS: 36415; 80053; 81206; 83615; 85025

== ENCOUNTER 2025-06-29 18:11 | Outpatient (REF) | payer MEDICARE, SELFPAY ==
[2025-06-29 18:55] LABS: COMMENT (LAB VIEW ONLY) 78.96 mg/dL; Microalb ug/mg Crea 353.2 ug/mg Cr
== END 2025-06-29 18:12 | disposition home or self-care (01) ==
LOC: LBN 18:11
PROVIDERS: PCP Nurse Practitioner Family; Visit Provider Nurse Practitioner Family
DX: E11.9 Type 2 diabetes mellitus without complications (principal)
CPT/HCPCS: 82043; 82570

== ENCOUNTER 2025-08-15 03:44 | Outpatient (CLI) | payer MEDICARE, SELFPAY ==
[2025-08-15 08:45] LABS: Abs Immature Grans 0.02 10^3/uL (0.0-0.06); HCT 40.3 % (40.0-50.0); HGB 13.6 g/dL (13.5-17.5); Immature Grans % 0.4 %; MCH 30.0 pg (27.0-33.0); MCHC 33.7 % (32.0-36.0); MCV 89 fL (80-95); MPV 10.0 fL (8.0-11.0); Platelet Count 211 10^3/uL (130-400); RBC 4.54 10^6/uL (4.36-5.78); RDW 13.1 % (11.8-14.1); RDW-SD 42.8 fL; WBC 5.55 10^3/uL (4.4-10.8)
[2025-08-15 09:20] LABS: ALT 22 U/L (16-63); AST 20 U/L (15-37); Albumin 4.0 g/dL (3.4-5.0); Alkaline Phosphatase 58 U/L (46-116); Anion Gap 9.3 mmol/L (3-11); BUN 31 mg/dL (7-18); Bilirubin, Total 0.8 mg/dL (0.2-1.0); CO2 25.7 mmol/L (21.0-32.0); Calcium 9.3 mg/dL (8.5-10.1); Chloride 101 mmol/L (98-107); Estimated GFR 48.72 (mL/min/1.73m2); Glucose 219 mg/dL (74-106); LDH 177 U/L (85-227); Potassium 4.4 mmol/L (3.5-5.1); Sodium 136 mmol/L (136-145); Total Protein 7.4 g/dL (6.4-8.2)
[2025-08-18 09:07] LABS: BCR-ABL1 Molecular Response 4.35; BCR-ABL1 p210 FusionTranscript Detected (NotDetected)
== END 2025-08-15 03:45 | disposition home or self-care (01) ==
LOC: LBO 03:44
PROVIDERS: PCP Nurse Practitioner Family; Visit Provider Internal Medicine Hematology & Oncology
DX: C83.38 Diffuse large B-cell lymphoma, lymph nodes of multiple sites (principal); C92.10 Chronic myeloid leukemia, BCR/ABL-positive, not having achieved remission
CPT/HCPCS: 36415; 80053; 81206; 83615; 85025